=== PATIENT | female | born 1945 | race Caucasian/White ===

== ENCOUNTER 2017-04-19 14:36 | Emergency (ER) | payer BC, MEDICARE ==
[~2017-04-19] VITALS: Ht 154.9 cm; Wt 60.3 kg
[~2017-04-19 14:36] MED LIST: ALPR1TAB2 PO; ASPI325T8 PO; HYDR-2766 PO; LISI10TA2 PO; METO25TA2 PO
[2017-04-19 14:41] VITALS: BP 164/77
[2017-04-19] MEDS ORDERED: ASPI-630 PO (14:58)
[2017-04-19] MEDS ORDERED: IV NORMAL SALINE 1000ML BAG 1,000 ML IV SCH (15:00)
[2017-04-19] MEDS ORDERED: HYDROmorphone 2 MG/ML VIAL IV/SQ PRN (15:00)
[2017-04-19] MEDS ORDERED: ONDANSETRON PF 4 MG/2 ML VIAL. IV ONE (15:00)
[2017-04-19] MEDS ORDERED: 0.9 % SODIUM CHLORIDE 10 ML DISP.SYRIN. IV PRN (15:00)
[2017-04-19 15:05] LABS: BASO # 0.1 x10^3/uL (0.0-0.2); BASO % 1 % (0-3); EOS % 4 % (0-3); HEMATOCRIT 46.1 % (36.0-47.0); HEMOGLOBIN 15.8 g/dL (12.0-15.5); LYMPH # 2.8 x10^3/uL (1.0-4.8); LYMPH % 45 % (24-48); MEAN CORPUSCULAR HEMOGLOBIN 34 pg (25-35); MEAN CORPUSCULAR HGB CONC 34 g/dL (31-37); MEAN CORPUSCULAR VOLUME 98 fL (79-100); MONO % 6 % (0-9); NEUT % 45 % (31-73); PLATELET COUNT 160 x10^3/uL (140-400); RED BLOOD COUNT 4.73 x10^6/uL (3.50-5.40); RED CELL DISTRIBUTION WIDTH 12.8 % (11.5-14.5); WHITE BLOOD COUNT 6.2 x10^3/uL (4.0-11.0)
[2017-04-19 15:12] LABS: POTASSIUM 3.9 mmol/L (3.5-5.1)
[2017-04-19 15:18] LABS: DIRECT BILIRUBIN 0.1 mg/dL (0.0-0.2); TOTAL BILIRUBIN 0.5 mg/dL (0.2-1.0); TOTAL PROTEIN 7.3 g/dL (6.4-8.2)
--- NOTE | 2017-04-19 15:18 | PHYS DOC ---
Past Medical History Past Medical History: Anxiety, CAD, Hypertension, LA Additional Past Medical Histor: HERNIATED DISC, ANEURYSM Past Surgical History: Appendectomy, Cholecystectomy, Coronary Bypass Surgery Smoking: Cigarettes, Greater than 1 pack/day Alcohol Use: None Drug Use: None Adult General Chief Complaint Chief Complaint: ABDOMINAL PAIN HPI HPI As patient is a pleasant 71-year-old female with a known history of LA, coronary artery disease requiring bypass CABG and catheterization, a known history of abdominal aneurysm, hypertension, and prior skin cancer who presents with abdominal pain that has been chronic for months progressively increased over the last several days. Although she has an abdominal aneurysm she is presently on a course of observation based on its size by her vascular surgeon. Patient says pain is gotten progressively worse and although she normally gets her care [facility] she has not liked their care and came here instead for an evaluation. Patient denies any vomiting or diarrhea but has had significant increasing nausea last several days. Patient says pain is worse with direct pressure when she lays on her abdomen not changed by activity or food. Patient denies any diarrhea or fevers, chills, URI symptoms. She further denies any syncope or abdominal distention. She denies any recent travel outside the country, recent trauma to her abdominal wall, headache or focal neurologic deficit. Patient is made very clear she did have a followed briefly with [facility] on Thursday of this prior week, she did not go because she did not like the way she was cared for. Differential diagnosis considered during this presentation Acute pancreatitis. Appendicitis. Acute hepatitis. Peptic ulcer disease. Nonulcer dyspepsia. Irritable bowel disease. Functional gallbladder disorder. Sphincter of Oddi dysfunction. Diseases of the right kidney. Right-sided pneumonia. Rhua-Cxcv-Nrlfxg syndrome Subhepatic or intraabdominal abscess. Perforated viscus. Cardiac ischemia. Black spider envenomation abdominal aneurysm, UTI, pyonephritis, kidney stone, Review of Systems Review of Systems Constitutional: Denies fever or chills [] Eyes: Denies change in visual acuity, redness, or eye pain [] HENT: Denies nasal congestion or sore throat [] Respiratory: Denies cough or shortness of breath [] Cardiovascular: No additional information not addressed in HPI [] GI: She is complaining of abdominal pain with nausea no vomiting of bloody stools or diarrhea patient. His abdominal pain is been going on for months and only slightly increased : Denies dysuria or hematuria [] Musculoskeletal: Denies back pain or joint pain [] Integument: Denies rash or she does have a skin lesion on her abdomen that is reminiscent of her prior skin cancer or any known by her and her hem inspector. Neurologic: Denies headache, focal weakness or sensory changes [] Endocrine: Denies polyuria or polydipsia [] All other systems were reviewed and found to be within normal limits, except as documented in this note. Current Medications Current Medications Current Medications Medications (Trade) Dose Ordered Sig/Amari Start Time Stop Time Status Last Admin Dose Admin Hydromorphone HCl (Dilaudid) 1 mg PRN Q15MIN PRN 04/19/17 15:00 04/20/17 14:59 04/19/17 15:28 1 MG Ondansetron HCl (Zofran) 4 mg 1X ONCE 04/19/17 15:00 04/19/17 15:01 DC 04/19/17 15:25 4 MG Sodium Chloride (Normal Saline Flush) 10 ml QSHIFT PRN 04/19/17 15:00 Allergies Allergies Allergies Coded Allergies Type Severity Reaction Last Updated Verified Iodinated Contrast- Oral and IV Dye Allergy Unknown 04/19/17 Yes Latex, Natural Rubber Allergy Unknown Itching 04/19/17 Yes hydromorphone Adverse Reaction Unknown 04/19/17 Yes morphine Adverse Reaction Unknown Nausea and Vomiting 04/19/17 Yes Physical Exam Physical Exam Signs recorded on chart demonstrate hypertension only. Which is chronic for patient Constitutional: Well developed, well nourished, no acute distress, non-toxic appearance. sHe is thin but nondiaphoretic she is interactive and appropriate speaking 18-20 words sentences without issue. No apparent shortness of breath HENT: Normocephalic, atraumatic, bilateral external ears normal, oropharynx moist, no oral exudates, nose normal. [] Eyes: PERRLA, EOMI, conjunctiva normal, no discharge. [] Neck: Normal range of motion, no tenderness, supple, no stridor. [] Cardiovascular:Heart rate regular rhythm, no murmur [] Lungs & Thorax: Bilateral breath sounds clear to auscultation [] Abdomen: Bowel sounds normal, soft, she has mild tenderness to palpation in the epigastric and mid abdominal region with no obvious pulsatile masses no guarding rebound or organomegaly. She has no Encinas Lama sign, no Goodwin's or McBurney's point tenderness to palpation.[] Skin: Warm, dry, no erythema, no rash. [] Back: No tenderness, no CVA tenderness. [] Extremities: No tenderness, no cyanosis, no clubbing, ROM intact, no edema. [] Neurologic: Alert and oriented X 3, normal motor function, normal sensory function, no focal deficits noted. [] Psychologic: Affect normal, judgement normal, mood normal. [] Current Patient Data Vital Signs Vital Signs Date Time Temp Pulse Resp B/P (MAP) Pulse Ox O2 Delivery O2 Flow Rate FiO2 04/19/17 15:28 18 04/19/17 14:41 98.1 58 164/77 (106) 97 Room Air 98.1 Lab Values Laboratory Tests Test 04/19/17 14:45 White Blood Count 6.2 x10^3/uL (4.0-11.0) Red Blood Count 4.73 x10^6/uL (3.50-5.40) Hemoglobin 15.8 g/dL (12.0-15.5) H Hematocrit 46.1 % (36.0-47.0) Mean Corpuscular Volume 98 fL (79-100) Mean Corpuscular Hemoglobin 34 pg (25-35) Mean Corpuscular Hemoglobin Concent 34 g/dL (31-37) Red Cell Distribution Width 12.8 % (11.5-14.5) Platelet Count 160 x10^3/uL (140-400) Neutrophils (%) (Auto) 45 % (31-73) Lymphocytes (%) (Auto) 45 % (24-48) Monocytes (%) (Auto) 6 % (0-9) Eosinophils (%) (Auto) 4 % (0-3) H Basophils (%) (Auto) 1 % (0-3) Neutrophils # (Auto) 2.8 x10^3uL (1.8-7.7) Lymphocytes # (Auto) 2.8 x10^3/uL (1.0-4.8) Monocytes # (Auto) 0.4 x10^3/uL (0.0-1.1) Eosinophils # (Auto) 0.2 x10^3/uL (0.0-0.7) Basophils # (Auto) 0.1 x10^3/uL (0.0-0.2) Sodium Level 140 mmol/L (136-145) Potassium Level 3.9 mmol/L (3.5-5.1) Chloride Level 103 mmol/L (98-107) Carbon Dioxide Level 29 mmol/L (21-32) Anion Gap 8 (6-14) Blood Urea Nitrogen 8 mg/dL (7-20) Creatinine 1.0 mg/dL (0.6-1.0) Estimated GFR (Cockcroft-Gault) 55.0 Glucose Level 93 mg/dL (70-99) Calcium Level 9.0 mg/dL (8.5-10.1) Total Bilirubin 0.5 mg/dL (0.2-1.0) Direct Bilirubin 0.1 mg/dL (0.0-0.2) Aspartate Amino Transferase (AST) 17 U/L (15-37) Alanine Aminotransferase (ALT) 14 U/L (14-59) Alkaline Phosphatase 102 U/L (46-116) Creatine Kinase 37 U/L (26-192) Creatine Kinase MB (Mass) < 0.5 ng/mL (0.0-3.6) Creatine Kinase MB Relative Index % (0-4) Troponin I Quantitative < 0.017 ng/mL (0.000-0.055) Total Protein 7.3 g/dL (6.4-8.2) Albumin 4.0 g/dL (3.4-5.0) Lipase 61 U/L (73-393) L Laboratory Tests 04/19/17 14:45 Laboratory Tests 04/19/17 14:45 EKG EKG [] Radiology/Procedures Radiology/Procedures [] [facility] [address] [place] [address] IMAGING REPORT Signed PATIENT: TOÑO ROLLINS ACCOUNT: [id number] : 1945 LOCATION: ER AGE: 71 SEX: F EXAM STATUS: PRE ER ORD. PHYSICIAN: EULA MARINELLI MD REASON: ab pain with known AAA PROCEDURE: CT ABDOMEN PELVIS WO CONTRAST EXAM: CT abdomen and pelvis without contrast. HISTORY: 71-year-old female with abdominal pain, known abdominal aortic aneurysm. TECHNIQUE: Computed tomographic images of the abdomen and pelvis are obtained without the use of intravenous contrast, given reported iodine allergy. Multiplanar reformatting was performed. One or more of the following individualized dose reduction techniques were utilized for this examination: 1. Automated exposure control 2. Adjustment of the mA and/or kV according to patient size 3. Use of iterative reconstruction technique COMPARISON: Contrast-enhanced CT dated April 20, 2016. FINDINGS: Visualized lung bases demonstrate no acute finding. Detailed evaluation of intra-abdominal and pelvic organs and vascular structures is limited given lack of IV and oral contrast. Within this limitation, the liver, spleen, pancreas, and adrenal glands demonstrate no focal abnormality. Gallbladder is surgically absent. No hydronephrosis or nephrolithiasis is seen. A round hypodensity is redemonstrated extending off the superior left kidney, similar in size when compared to the previous exam. The GI tract demonstrates no dilated bowel loops to suggest obstruction. Distal colonic diverticula are present without evidence of acute inflammation. The appendix is not visualized in the right lower quadrant, however no inflammatory changes are seen in the region to suggest acute appendicitis. Urinary bladder is distended with urine and grossly unremarkable, aside from a single tiny focus of air anteriorly within its lumen, could be related to recent catheterization or infection. Uterus and bilateral adnexa demonstrate no focal abnormality. There is redemonstration of focal dilatation of the infrarenal abdominal aorta measuring up to 4.5 cm in AP dimension, previously measuring 4.2 when measured in a similar fashion on last years exam. No periaortic stranding is seen. Diffuse atherosclerotic calcifications of the aorta and its branches are redemonstrated. No intra-abdominal or pelvic free fluid, free air or significant lymphadenopathy is seen. Overlying soft tissues and visualized osseous structures demonstrate no acute or suspicious interval change. Median sternotomy wires are partially visualized. IMPRESSION: No acute intra-abdominal or pelvic process seen on this noncontrast study. No acute interval change when compared to the previous exam, with grossly stable appearing infrarenal abdominal aortic aneurysm. IMAGING REPORT Signed PATIENT: TOÑO ROLLINS ACCOUNT: [id number] : 1945 LOCATION: ER AGE: 71 SEX: F EXAM STATUS: PRE ER ORD. PHYSICIAN: EULA MARINELLI MD REASON: AAA with ab and back pain PROCEDURE: ABDOMEN COMPLETE ABDOMEN COMPLETE Clinical Indication: AAA with ab and back pain Comparison: None, correlate with CT obtained on the same day. Technique: Transverse and longitudinal sonography of the abdomen is performed. Findings: The pancreas is obscured by overlying bowel gas. IVC is patent. Proximal aorta measures 2.1 cm in diameter. Mid aorta measured at 4.3 cm in greatest diameter, consistent with known abdominal aortic aneurysm. The liver demonstrates normal contour and echogenicity measuring 15.0 cm. The main portal vein demonstrates normal directional flow. The common bile duct measures 6 mm in diameter. The gallbladder is surgically absent. The right kidney measures 9.6 x 4.9 x 5.0 cm, without evidence of hydronephrosis. Left kidney measures 10.5 x 5.9 x 5.1 cm, without evidence of hydronephrosis. A round, simple appearing cyst is seen extending off the superior left kidney measuring 3.1 cm, consistent with a simple appearing cyst. The spleen measures 11.5 cm. No free fluid is seen within the provided images. IMPRESSION: 1. No acute sonographic finding. Gallbladder surgically absent. 2. Abdominal aortic aneurysm redemonstrated. 3. Simple appearing left renal cyst. DICTATED and SIGNED BY: CARLY SINGH MD DATE: 04/19/17 1541 CC: EULA MARINELLI MD; CONRAD HOLLOWAY MD ~ DICTATED and SIGNED BY: CARLY SINGH MD DATE: 04/19/17 1533 CC: EULA MARINELLI MD; CONRAD HOLLOWAY MD ~ Course & Med Decision Making Course & Med Decision Making Pertinent Labs and Imaging studies reviewed. (See chart for details) []While trying to place the IV line patient became increasingly aggressive with staff and actually threatened to leave AMA if they did not sticker by the second time. was also somewhat aggressive with staff and actually left the room extremity he didn't want see his "" tortured by the place an IV line in her arm. Reassured them that we are intent was to be as kindest possible in order to have a safety that in place patient was placed on a monitor and an IV placed on the right antecubital fossa. Patient EKG that was done on arrival time of 2:49 PM read by me 04/19/2017 demonstrates normal sinus rhythm with a P wave there were QRS there is a heart rate of 52 sinus bradycardia with purulent 156, QRS interval of 88 which is normal, QTC of 48 which is normal. Patient has some nonspecific ST segment T- wave changes in the lateral leads which may represent ventricular strain there is also a great deal of movement artifact associated with this EKG. Is now 3:[address] the way back from CAT scanner began having increasing chest discomfort another EKG was ordered to look for any kind of change or ischemic pattern on EKG. Patient is resting quietly with no complaints. Patient tells me that their symptoms given during CC are improved. We reviewed labs and radiology reports with patient and any family at bedside. We have discussed the CT results which stems see no interval change in her CAT scan. Patient has a negative troponin, negative proBNP, negative EKG, negative LFTs, negative CBC, patient's urinalysis is clear. Patient's discomfort is improved specifically patient is no change from change in her abdominal aneurysm. Dragon Disclaimer Dragon Disclaimer This electronic medical record was generated, in whole or in part, using a voice recognition dictation system. Departure Departure Impression: Primary Impression: AAA (abdominal aortic aneurysm) without rupture Additional Impression: Abdominal pain Disposition: 01 HOME, SELF-CARE Referrals: CONRAD HOLLOWAY MD (PCP) Patient Instructions: Abdominal Aortic Aneurysm, Abdominal Pain (Nonspecific) Additional Instructions: discharge: I've spoken with the patient and/or caregivers. I've explained the patient's condition, diagnosis and treatment plan based on information available to me at this time. I've answered the patient's and/or caregivers questions and addressed any concerns. The patient and/or caregivers have a good understanding the patient's diagnosis, condition and treatment plan as can be expected at this point. Vital signs have been stabilized. The patient's condition is stable for discharge from the emergency department. The patient will pursue further outpatient evaluation with her primary care provider or other designated consulting physician as outlined in the discharge instructions. Patient and/or caregivers are agreeable to this plan of care and follow-up instructions have been explained in detail. The patient and/or caregivers have received these instructions in written format and expressed understanding of these discharge instructions. The patient and her caregivers are aware that if any significant change in condition or worsening of symptoms should prompt him to immediately return to this of the closest emergency department. If an emergent department is not readily available I would encourage him to call 911. Scripts Hydrocodone Bit/Acetaminophen (HYDROCODONE-APAP 5-325 ) 1 Each Tablet 1-2 TAB PO PRN Q6HRS Y for PAIN for 5 Days, #14 TAB 0 Refills Prov: EULA MARINELLI MD 04/19/17 Problem Qualifiers EULA MARINELLI MD Apr 19, 2017 15:18
[2017-04-19 15:29] LABS: CREATINE KINASE 37 U/L (26-192)
[2017-04-19 15:30] LABS: CKMB MASS < 0.5 ng/mL (0.0-3.6)
--- NOTE | 2017-04-19 15:45 | RAD ---
EXAM: CT abdomen and pelvis without contrast. HISTORY: 71-year-old female with abdominal pain, known abdominal aortic aneurysm. TECHNIQUE: Computed tomographic images of the abdomen and pelvis are obtained without the use of intravenous contrast, given reported iodine allergy. Multiplanar reformatting was performed. One or more of the following individualized dose reduction techniques were utilized for this examination: 1. Automated exposure control 2. Adjustment of the mA and/or kV according to patient size 3. Use of iterative reconstruction technique COMPARISON: Contrast-enhanced CT dated April 20, 2016. FINDINGS: Visualized lung bases demonstrate no acute finding. Detailed evaluation of intra-abdominal and pelvic organs and vascular structures is limited given lack of IV and oral contrast. Within this limitation, the liver, spleen, pancreas, and adrenal glands demonstrate no focal abnormality. Gallbladder is surgically absent. No hydronephrosis or nephrolithiasis is seen. A round hypodensity is redemonstrated extending off the superior left kidney, similar in size when compared to the previous exam. The GI tract demonstrates no dilated bowel loops to suggest obstruction. Distal colonic diverticula are present without evidence of acute inflammation. The appendix is not visualized in the right lower quadrant, however no inflammatory changes are seen in the region to suggest acute appendicitis. Urinary bladder is distended with urine and grossly unremarkable, aside from a single tiny focus of air anteriorly within its lumen, could be related to recent catheterization or infection. Uterus and bilateral adnexa demonstrate no focal abnormality. There is redemonstration of focal dilatation of the infrarenal abdominal aorta measuring up to 4.5 cm in AP dimension, previously measuring 4.2 when measured in a similar fashion on last years exam. No periaortic stranding is seen. Diffuse atherosclerotic calcifications of the aorta and its branches are redemonstrated. No intra-abdominal or pelvic free fluid, free air or significant lymphadenopathy is seen. Overlying soft tissues and visualized osseous structures demonstrate no acute or suspicious interval change. Median sternotomy wires are partially visualized. IMPRESSION: No acute intra-abdominal or pelvic process seen on this noncontrast study. No acute interval change when compared to the previous exam, with grossly stable appearing infrarenal abdominal aortic aneurysm.
--- NOTE | 2017-04-19 15:48 | RAD ---
ABDOMEN COMPLETE Clinical Indication: AAA with ab and back pain Comparison: None, correlate with CT obtained on the same day. Technique: Transverse and longitudinal sonography of the abdomen is performed. Findings: The pancreas is obscured by overlying bowel gas. IVC is patent. Proximal aorta measures 2.1 cm in diameter. Mid aorta measured at 4.3 cm in greatest diameter, consistent with known abdominal aortic aneurysm. The liver demonstrates normal contour and echogenicity measuring 15.0 cm. The main portal vein demonstrates normal directional flow. The common bile duct measures 6 mm in diameter. The gallbladder is surgically absent. The right kidney measures 9.6 x 4.9 x 5.0 cm, without evidence of hydronephrosis. Left kidney measures 10.5 x 5.9 x 5.1 cm, without evidence of hydronephrosis. A round, simple appearing cyst is seen extending off the superior left kidney measuring 3.1 cm, consistent with a simple appearing cyst. The spleen measures 11.5 cm. No free fluid is seen within the provided images. IMPRESSION: 1. No acute sonographic finding. Gallbladder surgically absent. 2. Abdominal aortic aneurysm redemonstrated. 3. Simple appearing left renal cyst.
[2017-04-19 16:06] LABS: BILIRUBIN,URINE NEGATIVE (NEG); GLUCOSE,URINE NEGATIVE (NEG); NITRITE,URINE NEGATIVE (NEG); PH,URINE 6.5; PROTEIN,URINE NEGATIVE (NEG-TRACE); UROBILINOGEN,URINE 0.2 mg/dL (0.2 mg/dL)
[2017-04-19] MEDS ORDERED: HYDR-2758 PO (16:17)
[2017-04-19 16:18] LABS: BACTERIA,URINE 0 /HPF (0-FEW); RBC,URINE RARE /HPF (0-2); SQUAMOUS EPITHELIAL CELL,UR OCC /LPF
--- NOTE | 2017-04-20 06:27 | EKG ---
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
== END 2017-04-19 16:43 | disposition home or self-care (01) ==
LOC: ER 14:36
DX: I71.4 Abdominal aortic aneurysm, without rupture (principal); I25.10 Atherosclerotic heart disease of native coronary artery without angina pectoris; F41.9 Anxiety disorder, unspecified; I10 Essential (primary) hypertension; I25.2 Old myocardial infarction; F17.210 Nicotine dependence, cigarettes, uncomplicated; Z90.49 Acquired absence of other specified parts of digestive tract; Z95.1 Presence of aortocoronary bypass graft; Z91.041 Radiographic dye allergy status; Z91.040 Latex allergy status; Z88.5 Allergy status to narcotic agent
CPT/HCPCS: 36415; 74176; 76700; 80048; 80076; 81001; 82553; 83690; 84484; 85025; 87086; 93005; 96361; 96374; 96375; 99285; J1170; J2405; J7030

== ENCOUNTER 2017-07-06 20:27 | Emergency (ER) | payer BC ==
[2017-07-06] MEDS: DOXYCYCLINE HYCLATE 100 MG TABLET PO ×2 (21:27)
== END 2017-07-06 21:44 | disposition home or self-care (01) ==
LOC: ER 20:27
DX: L03.031 Cellulitis of right toe (principal); I10 Essential (primary) hypertension; I25.10 Atherosclerotic heart disease of native coronary artery without angina pectoris; I25.2 Old myocardial infarction; Z88.5 Allergy status to narcotic agent; Z91.041 Radiographic dye allergy status; Z91.040 Latex allergy status
CPT/HCPCS: 99283

== ENCOUNTER 2018-03-12 06:55 | Inpatient (IN) | payer BC ==
[~2018-03-12] VITALS: Ht 165.1 cm; Wt 56.2 kg
[~2018-03-12 06:55] MED LIST changes: +ASPI-630 PO; +DOXY100C2 PO; +HYDR-2758 PO
--- NOTE | 2018-03-12 07:10 | EKG ---
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
--- NOTE | 2018-03-12 07:20 | PHYS DOC ---
Past Medical History Past Medical History: Anxiety, CAD, Hypertension, SC Additional Past Medical Histor: HERNIATED DISC, ANEURYSM Past Surgical History: Appendectomy, Cholecystectomy, Coronary Bypass Surgery Alcohol Use: None Drug Use: None Adult General Chief Complaint Chief Complaint: CHEST PAIN HPI HPI 72-year-old female presenting the emergency department today with chest pain this started this morning about 2 hours ago. She called EMS who provided the patient with aspirin and nitroglycerin. She is currently feeling much better. She has a history of multiple heart attacks in the past and is status post CABG. She denies any history of blood clots coughing of blood or unilateral leg swelling. The pain was a pressure sensation that she reports is worse than her previous heart attacks. Her pain is nearly 0 now. Review of systems is negative for abdominal pain vomiting fevers chills diaphoresis. All other review of systems is negative unless otherwise noted in history of present illness. ED course: 72-year-old female presenting with chest pain. On arrival EKG obtained which shows that the patient has ST depressions in lead V2 V3 V4 V5 V6. less than 1mm ST elevation in AVR. Does not meet STEMI criteria. IV established. cards paged at [phone]. samia called back at [phone]. I communicated findings on EKG. He asked that I initiated heparin. They will see her first thing. The time is now 7:46 AM. After reviewing the patient's medical chart it appears that she has a history of abdominal aortic aneurysm. Heparin has not been given because the patient's symptoms were not clearly only in her chest but she describes them as "all over." Risk-benefit analysis and discussion had with patient. Shared decision making utilized. We will evaluate the patient's aneurysms further prior to initiating heparin as it would be strongly contraindicated if her aneurysms are contributing to her symptoms. Dr. Jha did not know about her aneurysms during her discussion by phone. I came to the knowledge of the aneurysms after my discussion with him. The time is now 10:[address] angiogram confirms no acute rupture of AAA. No signs of dissection. We will initiate heparin therapy. I spoke with Dr. Yancey our vascular surgeon as the patient's aneurysm is over 5 cm. He agrees to see the patient. We will admit the patient to the PCP service to the cardiovascular care unit for further evaluation treatment and care. I placed a basic bridge orders. Dr. Holloway accepted the patient for admission. Review of Systems Review of Systems SEE ABOVE. Current Medications Current Medications Current Medications Medications (Trade) Dose Ordered Sig/Amari Start Time Stop Time Status Last Admin Dose Admin Acetaminophen (Tylenol) 650 mg 1X ONCE 03/12/18 08:00 03/12/18 08:01 DC Alprazolam (Xanax) 0.25 mg 1X ONCE 03/12/18 08:00 03/12/18 08:01 DC 03/12/18 08:03 0.25 MG Fentanyl Citrate (Fentanyl 2ml Vial) 25 mcg 1X PRN PRN 03/12/18 08:00 03/12/18 08:03 25 MCG Heparin Sodium (Porcine) (Heparin Sodium) 3,350 unit 1X ONCE 03/12/18 10:15 03/12/18 10:16 UNV Heparin Sodium/ Dextrose 500 ml @ 0 mls/hr CONT PRN 03/12/18 10:15 UNV Info (CONTRAST GIVEN -- Rx MONITORING) 1 each PRN DAILY PRN 03/12/18 08:15 03/14/18 08:14 Iohexol (Omnipaque 300 Mg/ml) 90 ml 1X ONCE 03/12/18 08:15 03/12/18 08:16 DC 03/12/18 08:15 90 ML Nitroglycerin (Nitrostat) 0.4 mg PRN Q5MIN PRN 03/12/18 10:15 03/13/18 10:14 UNV Ondansetron HCl (Zofran) 4 mg PRN Q8HRS PRN 03/12/18 10:15 03/13/18 10:14 UNV Sodium Chloride 1,000 ml @ 100 mls/hr Q10H 03/12/18 10:13 03/12/18 14:12 UNV Allergies Allergies Allergies Coded Allergies Type Severity Reaction Last Updated Verified Latex, Natural Rubber Allergy Intermediate Itching 07/06/17 Yes hydromorphone Adverse Reaction Intermediate 03/12/18 Yes morphine Adverse Reaction Intermediate Nausea and Vomiting 03/12/18 Yes Physical Exam Physical Exam SEE ABOVE Constitutional: Well developed, well nourished, no acute distress, non-toxic appearance. feeling much better. HENT: Normocephalic, atraumatic, bilateral external ears normal, oropharynx moist, no oral exudates, nose normal. [] Eyes: PERRLA, EOMI, conjunctiva normal, no discharge. [] Neck: Normal range of motion, no tenderness, supple, no stridor. [] Cardiovascular:Heart rate regular rhythm, no murmur [] Lungs & Thorax: Bilateral breath sounds clear to auscultation [] Abdomen: Bowel sounds normal, soft, no tenderness, no masses, no pulsatile masses. [] Skin: Warm, dry, no erythema, no rash. [] Back: No tenderness, no CVA tenderness. [] Extremities: No tenderness, no cyanosis, no clubbing, ROM intact, no edema. [] Neurologic: Alert and oriented X 3, normal motor function, normal sensory function, no focal deficits noted. [] Psychologic: Affect normal, judgement normal, mood normal. [] Current Patient Data Vital Signs Vital Signs Date Time Temp Pulse Resp B/P (MAP) Pulse Ox O2 Delivery O2 Flow Rate FiO2 03/12/18 09:00 101 18 141/83 (102) 97 Room Air Lab Values Laboratory Tests Test 03/12/18 07:15 White Blood Count 8.0 x10^3/uL (4.0-11.0) Red Blood Count 4.29 x10^6/uL (3.50-5.40) Hemoglobin 14.3 g/dL (12.0-15.5) Hematocrit 41.1 % (36.0-47.0) Mean Corpuscular Volume 96 fL (79-100) Mean Corpuscular Hemoglobin 33 pg (25-35) Mean Corpuscular Hemoglobin Concent 35 g/dL (31-37) Red Cell Distribution Width 13.1 % (11.5-14.5) Platelet Count 168 x10^3/uL (140-400) Neutrophils (%) (Auto) 79 % (31-73) H Lymphocytes (%) (Auto) 14 % (24-48) L Monocytes (%) (Auto) 5 % (0-9) Eosinophils (%) (Auto) 1 % (0-3) Basophils (%) (Auto) 1 % (0-3) Neutrophils # (Auto) 6.3 x10^3uL (1.8-7.7) Lymphocytes # (Auto) 1.1 x10^3/uL (1.0-4.8) Monocytes # (Auto) 0.4 x10^3/uL (0.0-1.1) Eosinophils # (Auto) 0.1 x10^3/uL (0.0-0.7) Basophils # (Auto) 0.0 x10^3/uL (0.0-0.2) Prothrombin Time 13.7 SEC (11.7-14.0) Prothrombin Time INR 1.1 (0.8-1.1) PTT 26 SEC (24-38) Sodium Level 145 mmol/L (136-145) Potassium Level 3.0 mmol/L (3.5-5.1) L Chloride Level 107 mmol/L (98-107) Carbon Dioxide Level 30 mmol/L (21-32) Anion Gap 8 (6-14) Blood Urea Nitrogen 15 mg/dL (7-20) Creatinine 0.9 mg/dL (0.6-1.0) Estimated GFR (Cockcroft-Gault) 61.9 Glucose Level 121 mg/dL (70-99) H Calcium Level 9.0 mg/dL (8.5-10.1) Total Bilirubin 0.5 mg/dL (0.2-1.0) Direct Bilirubin 0.2 mg/dL (0.0-0.2) Aspartate Amino Transferase (AST) 12 U/L (15-37) L Alanine Aminotransferase (ALT) 15 U/L (14-59) Alkaline Phosphatase 87 U/L (46-116) Troponin I Quantitative < 0.017 ng/mL (0.000-0.055) OZ-Erg-N-Type Natriuretic Peptide 1562 pg/mL (0-124) H Total Protein 6.6 g/dL (6.4-8.2) Albumin 3.7 g/dL (3.4-5.0) Lipase 92 U/L (73-393) Laboratory Tests 03/12/18 07:15 Laboratory Tests 03/12/18 07:15 EKG EKG [] Radiology/Procedures Radiology/Procedures [] Course & Med Decision Making Course & Med Decision Making Pertinent Labs and Imaging studies reviewed. (See chart for details) [] Dragon Disclaimer Dragon Disclaimer This electronic medical record was generated, in whole or in part, using a voice recognition dictation system. Departure Departure Impression: Primary Impression: Chest pain Disposition: ADMITTED INPATIENT Admitting Physician: Conrad Holloway Condition: STABLE Referrals: CONRAD HOLLOWAY MD (PCP) ADELAIDE DOMINGUEZ MD Mar 12, 2018 07:20
[2018-03-12] MEDS ORDERED: HEPARIN for IV BOLUS 10,000 UNIT/10 ML VIAL. IV ONE ×2 (07:30→10:15)
[2018-03-12] MEDS ORDERED: HEPARIN 25,000UTS/500ML PREMIX 500 ML IV PRN ×2 (07:30→10:15)
[2018-03-12 07:35] LABS: BASO % 1 % (0-3); EOS # 0.1 x10^3/uL (0.0-0.7); EOS % 1 % (0-3); HEMATOCRIT 41.1 % (36.0-47.0); HEMOGLOBIN 14.3 g/dL (12.0-15.5); LYMPH # 1.1 x10^3/uL (1.0-4.8); LYMPH % 14 % (24-48); MEAN CORPUSCULAR HEMOGLOBIN 33 pg (25-35); MEAN CORPUSCULAR HGB CONC 35 g/dL (31-37); MEAN CORPUSCULAR VOLUME 96 fL (79-100); MONO # 0.4 x10^3/uL (0.0-1.1); MONO % 5 % (0-9); NEUT # 6.3 x10^3uL (1.8-7.7); NEUT % 79 % (31-73); PLATELET COUNT 168 x10^3/uL (140-400); RED BLOOD COUNT 4.29 x10^6/uL (3.50-5.40); RED CELL DISTRIBUTION WIDTH 13.1 % (11.5-14.5)
--- NOTE | 2018-03-12 07:43 | RAD ---
Portable chest, 03/12/2018: HISTORY: Chest pain Comparison is made to a study from 09/11/2013. There has been a previous median sternotomy. The heart size and pulmonary vascularity are normal. There is calcific plaquing of the aorta. No pulmonary infiltrate is seen. There is no evidence of pleural fluid. IMPRESSION: No acute cardiopulmonary abnormality is detected. Electronically signed by: Heri Leonard MD (03/12/2018 7:40 AM) [facility]
[2018-03-12 07:45] LABS: CREATININE 0.9 mg/dL (0.6-1.0); GFR 61.9
[2018-03-12 07:49] LABS: ALBUMIN 3.7 g/dL (3.4-5.0); DIRECT BILIRUBIN 0.2 mg/dL (0.0-0.2); TOTAL BILIRUBIN 0.5 mg/dL (0.2-1.0); TOTAL PROTEIN 6.6 g/dL (6.4-8.2)
[2018-03-12 07:51] LABS: PROTHROMBIN TIME PATIENT 13.7 SEC (11.7-14.0)
[2018-03-12] MEDS ORDERED: ALPRAZolam 0.25 MG TABLET PO ONE (08:00)
[2018-03-12] MEDS ORDERED: fentaNYL PF VIAL 100 MCG/2 ML VIAL IV PRN (08:00)
[2018-03-12] MEDS ORDERED: ACETAMINOPHEN 325 MG TABLET. PO ONE (08:00)
[2018-03-12] MEDS ORDERED: CONTRAST GIVEN. MC PRN (08:15)
[2018-03-12] MEDS ORDERED: IOHEXOL 300 MG/ML 100ML VIAL. IV ONE (08:15)
[2018-03-12] MEDS ORDERED: NITROGLYCERIN SUBLINGUAL 0.4 MG BOTTLE OF 25. SL PRN ×2 (08:30→10:15)
--- NOTE | 2018-03-12 09:07 | EKG ---
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
--- NOTE | 2018-03-12 10:08 | RAD ---
PQRS Compliance Statement: One or more of the following individualized dose reduction techniques were utilized for this examination: 1. Automated exposure control 2. Adjustment of the mA and/or kV according to patient size 3. Use of iterative reconstruction technique CT ANGIO CHEST ABD PELVIS Clinical Indication: chest pain [id number], hx of aneurysm Comparison: CT abdomen and pelvis without contrast, April 19, 2017. CT angiogram chest abdomen and pelvis with contrast, September 15, 2012. TECHNIQUE: Helical CT imaging of the chest abdomen and pelvis is performed after 90 cc of Omnipaque [address] angiogram protocol. 3-D MIP and volume rendering reconstructions of the aorta performed. Findings: Mild narrowing in the proximal subclavian arteries bilaterally. Atherosclerotic aortic arch. There is borderline aneurysm of the ascending thoracic aorta, diameter 4.3 cm. Finding is unchanged. There is no dissection. Atherosclerotic calcification and mural thrombus in the descending thoracic aorta. Coronary artery disease. Prior CABG. 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 The narrowing is worse. Atherosclerotic calcification and moderate narrowing at the origin of the SMA. Right and left renal arteries are patent. There is bilobed fusiform aneurysm of the infrarenal abdominal aorta, moderate mural thrombus in the lumen. Largest diameter is in the upper portion of the aneurysm measuring 5.1 cm AP by 4.4 cm transverse. On the 2017 study the maximum dimensions measured in similar location are 4.6 x 4.2 cm. There is moderate to severe narrowing at the origin of the right common iliac artery, progressed from prior study. Otherwise no high-grade narrowing in the common and external iliac arteries or the visualized femoral arteries. 9 mm right paratracheal lymph node. Cardiac size normal, no pericardial effusion. There is no pleural effusion. Tiny opacity in the anterior trachea is nonspecific but may be retained secretions or mucous, image 26. Lungs essentially clear. Cholecystectomy. Probable mild fatty infiltration of the liver. Spleen size normal. Small left adrenal nodules are stable. Pancreas and right adrenal gland are normal. Tiny cortical cyst right kidney. 3.3 cm left upper pole cyst. No hydronephrosis. Stomach unremarkable. No dilated small bowel. Sigmoid colon diverticulosis. No colon wall thickening. The urinary bladder is normal. Atrophic uterus. No pelvic free fluid. No compression fracture in the thoracolumbar spine. IMPRESSION: 1. Borderline aneurysm of the ascending thoracic aorta is unchanged. No dissection. 2. Infrarenal abdominal aorta aneurysm has mildly increased compared to 2017. Maximum diameter 5.1 cm. 3. 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 Moderate narrowing at the origin of the SMA. Celiac artery narrowing has progressed from 2013. 4. Moderate to severe narrowing at the origin of the right common iliac artery, progressed from 2013. 5. No acute abnormality in the chest abdomen or pelvis. Incidental findings as above. Electronically signed by: Nilesh Torres MD (03/12/2018 10:05 AM) [id number]
[2018-03-12] MEDS ORDERED: IV NORMAL SALINE 1000ML BAG 1,000 ML IV SCH (10:13)
[2018-03-12] MEDS ORDERED: ONDANSETRON PF 4 MG/2 ML VIAL. IV PRN (10:15)
--- NOTE | 2018-03-12 12:09 | PDOC2 ---
CARDIAC CONSULT DATE OF CONSULT Date of Consult DATE: 03/12/18 TIME: 12:02 REASON FOR CONSULT Reason for Consult: chest pain REFERRING PHYSICIAN Referring Physician: Carol SOURCE Source: Chart review, Patient HISTORY OF PRESENT ILLNESS HISTORY OF PRESENT ILLNESS This is a 72 yo female admitted for complains of chest pain. Reports that she has been having exertional CP and SOA in the last few weeks. Last night her chest pain was increased describing it as sharp which radiated to her neck and arms. She also is having throbbing bilateral MENA and is a little nauseated. Denies any palpitations. She is still having CP. She is significant for CAD with past CABG with 8 stents placed prior to that. She has been complaint with her cardiac meds but has been resistant to statin as she is scared about the side effects. Reports that she has not followed up with any program project manager since having CABG in 2007 and has not had any stress test done. Reports that she has been stressed lately and has increased her tobacco use. She is frustrated currently as she is been in ED for a while irritated and telling that if she does not get any room upstairs that she is just going to walk out of here and does not care if she dies. I was able to finally calm her down noting that her main problem is her MENA and has not been taken care off. Her BP is adequate and has received BTG and takes lortab for pain at home. PAST MEDICAL HISTORY Cardiovascular: CAD, HTN, Hyperlipidemia (refuses statin) Pulmonary: No pertinent hx CENTRAL NERVOUS SYSTEM: Other (No pertinent history) GI: GERD Heme/Onc: Cancer (skin) Hepatobiliary: No pertinent hx Psych: Anxiety Musculoskeletal: Osteoarthritis Rheumatologic: No pertinent hx Infectious disease: No pertinent hx ENT: No pertinent hx Renal/: No pertinent hx Endocrine: No pertinent hx Dermatology: Other (skin CA) PAST SURGICAL HISTORY Past Surgical History: Cholecystectomy, CABG (x3 10 yrs ago with 8 stents prior to it) FAMILY HISTORY Family History: Coronary Artery Disease (father and mother) SOCIAL HISTORY Smoke: 1 pack per day (>50 yrs) ALCOHOL: none Drugs: None Lives: with Family CURRENT MEDICATIONS CURRENT MEDICATIONS Current Medications Medications (Trade) Dose Ordered Sig/Amari Route PRN Reason Start Time Stop Time Status Last Admin Dose Admin Alprazolam (Xanax) 0.25 mg 1X ONCE PO 03/12/18 08:00 03/12/18 08:01 DC 03/12/18 08:03 Fentanyl Citrate (Fentanyl 2ml Vial) 25 mcg 1X PRN PRN IV SEVERE PAIN 03/12/18 08:00 03/12/18 08:03 Iohexol (Omnipaque 300 Mg/ml) 90 ml 1X ONCE IV 03/12/18 08:15 03/12/18 08:16 DC 03/12/18 08:15 Nitroglycerin (Nitrostat) 0.4 mg PRN Q5MIN PRN SL CHEST PAIN 03/12/18 08:30 03/12/18 10:45 DC 03/12/18 08:45 Heparin Sodium (Porcine) (Heparin Sodium) 3,350 unit 1X ONCE IV 03/12/18 10:15 03/12/18 10:45 DC 03/12/18 11:10 Heparin Sodium/ Dextrose 500 ml @ 13.5 mls/hr CONT PRN IV SEE I/O RECORD 03/12/18 10:15 03/12/18 11:12 ALLERGIES ALLERGIES: Coded Allergies: Latex, Natural Rubber (Verified Allergy, Intermediate, Itching, 07/06/17) hydromorphone (Verified Adverse Reaction, Intermediate, 03/12/18) PT REPORTS THAT SHE DOES NOT LIKE THE WAY SHE FEELS ON DILAUDID. NO SYMPTOMS morphine (Verified Adverse Reaction, Intermediate, Nausea and Vomiting, ) ROS Review of System 14 point ROS evaluated with pertinent positives noted per HPI PHYSICAL EXAM General: Alert, Oriented X3, No acute distress, Other (irritable) HEENT: Mucous membr. moist/pink Lungs: Clear to auscultation, Normal air movement Heart: Regular rate (SR), Other (3-4/6systolic murmur to LLS border and EUNICE border) Abdomen: Soft, No tenderness Extremities: No cyanosis, No edema Skin: No breakdown, No significant lesion Neuro: Normal speech, Sensation intact Psych/Mental Status: Mental status NL, Mood NL MUSCULOSKELETAL: Osteoarthritic changes both hands VITALS VITALS Vital Signs Date Time Temp Pulse Resp B/P (MAP) Pulse Ox O2 Delivery O2 Flow Rate FiO2 03/12/18 09:00 101 18 141/83 (102) 97 Room Air LABS Lab: Laboratory Tests Test 03/12/18 07:15 White Blood Count 8.0 x10^3/uL (4.0-11.0) Red Blood Count 4.29 x10^6/uL (3.50-5.40) Hemoglobin 14.3 g/dL (12.0-15.5) Hematocrit 41.1 % (36.0-47.0) Mean Corpuscular Volume 96 fL (79-100) Mean Corpuscular Hemoglobin 33 pg (25-35) Mean Corpuscular Hemoglobin Concent 35 g/dL (31-37) Red Cell Distribution Width 13.1 % (11.5-14.5) Platelet Count 168 x10^3/uL (140-400) Neutrophils (%) (Auto) 79 % (31-73) Lymphocytes (%) (Auto) 14 % (24-48) Monocytes (%) (Auto) 5 % (0-9) Eosinophils (%) (Auto) 1 % (0-3) Basophils (%) (Auto) 1 % (0-3) Neutrophils # (Auto) 6.3 x10^3uL (1.8-7.7) Lymphocytes # (Auto) 1.1 x10^3/uL (1.0-4.8) Monocytes # (Auto) 0.4 x10^3/uL (0.0-1.1) Eosinophils # (Auto) 0.1 x10^3/uL (0.0-0.7) Basophils # (Auto) 0.0 x10^3/uL (0.0-0.2) Prothrombin Time 13.7 SEC (11.7-14.0) Prothromb Time International Ratio 1.1 (0.8-1.1) Activated Partial Thromboplast Time 26 SEC (24-38) Sodium Level 145 mmol/L (136-145) Potassium Level 3.0 mmol/L (3.5-5.1) Chloride Level 107 mmol/L (98-107) Carbon Dioxide Level 30 mmol/L (21-32) Anion Gap 8 (6-14) Blood Urea Nitrogen 15 mg/dL (7-20) Creatinine 0.9 mg/dL (0.6-1.0) Estimated GFR (Cockcroft-Gault) 61.9 Glucose Level 121 mg/dL (70-99) Calcium Level 9.0 mg/dL (8.5-10.1) Total Bilirubin 0.5 mg/dL (0.2-1.0) Direct Bilirubin 0.2 mg/dL (0.0-0.2) Aspartate Amino Transf (AST/SGOT) 12 U/L (15-37) Alanine Aminotransferase (ALT/SGPT) 15 U/L (14-59) Alkaline Phosphatase 87 U/L (46-116) Troponin I Quantitative < 0.017 ng/mL (0.000-0.055) UV-Naz-O-Type Natriuretic Peptide 1562 pg/mL (0-124) Total Protein 6.6 g/dL (6.4-8.2) Albumin 3.7 g/dL (3.4-5.0) Lipase 92 U/L (73-393) ASSESSMENT/PLAN ASSESSMENT/PLAN 1. Chest pain: UA features. Abnormal EKG 2. CAD: CABG estimated in 2007 x3 with 8 prior stents. 3. HTN: controlled 4. HLP: refuses to take statin 5. PAD: new finding. 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 No abd pain, melena nor claudication symptoms. 6. AAA with borderline aneurysm to ascending aorta: infrarenal AAA 4.3 cm 2016 and presently 5.[address] 7. Suspect COPD with continued tobaccoism 8. Anxiety/stress/MENA: per PCP, likely from NTG 9. Hypokalemia Recommendations 1. Ischemic w/u, will discuss with primary program project manager. Heparin ongoing 2. TTE, TSH, lipids, Mg 3. ASA. Restart home toprol. 4. Xanax and lortab given 5. Vascular consult pending 6. Calin K. 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
[2018-03-12] MEDS ORDERED: HYDROcodone/APAP 7.5/325MG 1 TAB TABLET PO ONE (12:30)
[2018-03-12 12:38] LABS: CHOLESTEROL/HDL RATIO 5.6
[2018-03-12] MEDS ORDERED: METOPROLOL SUCC 24HR ER 25 MG TAB.ER.24H. PO SCH (13:00)
[2018-03-12] MEDS ORDERED: ASPIRIN CHEWABLE 81 MG TABLET. PO SCH (13:00)
[2018-03-12] MEDS ORDERED: POTASSIUM CHLORIDE 20 MEQ TABLET.ER. PO ONE (13:15)
[2018-03-12] MEDS ORDERED: LABETALOL 20 MG/4 ML DISP.SYRIN. IVP PRN (13:15)
[2018-03-12] MEDS ORDERED: ALPRAZolam 1 MG TABLET PO PRN (13:15)
--- NOTE | 2018-03-12 14:37 | PDOC2 ---
CONSULT Date of Consult Date of Consult DATE: 03/12/18 TIME: 14:09 Reason for Consult Reason for Consult: AAA, celiac and iliac artery stenosis Referring Physician Referring Physician: Vascular Surgery DANICA Green MD Identification/Chief Complaint Chief Complaint Chest pain Source Source: Patient History of Present Illness Reason for Visit: Patient presented to the emergency room with chest pain earlier today. She is a significant history of coronary artery disease, she reports she has had "9 heart attacks". Her cardiac workup has thus far been negative for acute DC. She has known aortic aneurysm, which measured 4.3 cm April 2017, and is measuring 5.[address] also revealed iliac, SMA and high grade celiac stenosis. She has no complaints of abdominal pain or back pain. When obtaining a history, patient reports "I just want to , I know I'm going to ". When discussing her arterial disease and discussing options for intervention, she reported "I'm going to let you do it so it bursts. They are all going to burst." She also repeatedly told me she did not want to stay here, she was going to "get out of here so I can have a cigarette." Needless to say it was difficult to obtain a history from the pt and do an exam. She is a chronic severe tobacco user. Past Medical History Cardiovascular: CAD, HTN, Hyperlipidemia (refuses statin) Pulmonary: No pertinent hx CENTRAL NERVOUS SYSTEM: Other (No pertinent history) GI: GERD Heme/Onc: Cancer (skin) Hepatobiliary: No pertinent hx Psych: Anxiety Musculoskeletal: Osteoarthritis Rheumatologic: No pertinent hx Infectious disease: No pertinent hx ENT: No pertinent hx Renal/: No pertinent hx Endocrine: No pertinent hx Dermatology: Other (skin CA) Past Surgical History Past Surgical History: Cholecystectomy, CABG (x3 10 yrs ago with 8 stents prior to it) Family History Family History: Coronary Artery Disease (father and mother) Social History 1 pack per day (>50 yrs) ALCOHOL: none Drugs: None Lives: with Family Current Problem List Problem List Problems Medical Problems: (1) Chest pain Status: Acute Current Medications Current Medications Current Medications Heparin Sodium (Porcine) (Heparin Sodium) 3,350 unit 1X ONCE IV ; Start at 07:30; Stop 03/12/18 at 07:40; Status DC Heparin Sodium/ Dextrose 500 ml @ 13.5 mls/hr CONT PRN IV SEE I/O RECORD; Start 03/12/18 at 07:30; Stop 03/12/18 at 07:40; Status DC Alprazolam (Xanax) 0.25 mg 1X ONCE PO Last administered on 03/12/18at 08:03; Start 03/12/18 at 08:00; Stop 03/12/18 at 08:01; Status DC Acetaminophen (Tylenol) 650 mg 1X ONCE PO ; Start 03/12/18 at 08:00; Stop at 08:01; Status DC Fentanyl Citrate (Fentanyl 2ml Vial) 25 mcg 1X PRN PRN IV SEVERE PAIN Last administered on 03/12/18at 08:03; Start 03/12/18 at 08:00 Iohexol (Omnipaque 300 Mg/ml) 90 ml 1X ONCE IV Last administered on at 08:15; Start 03/12/18 at 08:15; Stop 03/12/18 at 08:16; Status DC Info (CONTRAST GIVEN -- Rx MONITORING) 1 each PRN DAILY PRN MC SEE COMMENTS; Start 03/12/18 at 08:15; Stop 03/14/18 at 08:14 Nitroglycerin (Nitrostat) 0.4 mg PRN Q5MIN PRN SL CHEST PAIN Last administered on 03/12/18at 08:45; Start 03/12/18 at 08:30; Stop 03/12/18 at 10:45; Status DC Heparin Sodium (Porcine) (Heparin Sodium) 3,350 unit 1X ONCE IV Last administered on 03/12/18at 11:10; Start 03/12/18 at 10:15; Stop 03/12/18 at 10 :45; Status DC Heparin Sodium/ Dextrose 500 ml @ 13.5 mls/hr CONT PRN IV SEE I/O RECORD Last administered on 03/12/18at 11:12; Start 03/12/18 at 10:15 Ondansetron HCl (Zofran) 4 mg PRN Q8HRS PRN IV NAUSEA/VOMITING; Start at 10:15; Stop 03/13/18 at 10:14 Sodium Chloride 1,000 ml @ 100 mls/hr Q10H IV ; Start 03/12/18 at 10:13; Stop 03/12/18 at 14:12 Nitroglycerin (Nitrostat) 0.4 mg PRN Q5MIN PRN SL CHEST PAIN; Start 03/12/18 at 10:15; Stop 03/13/18 at 10:14 Acetaminophen/ Hydrocodone Bitart (Lortab 7.5/325) 1 tab 1X ONCE PO Last administered on 03/12/18at 12:35; Start 03/12/18 at 12:30; Stop 03/12/18 at 12 :31; Status DC Potassium Chloride (Klor-Con) 40 meq 1X ONCE PO ; Start 03/12/18 at 13:15; Stop 03/12/18 at 13:16; Status DC Atorvastatin Calcium (Lipitor) 40 mg QHS PO ; Start 03/12/18 at 21:00 Alprazolam (Xanax) 1 mg PRN DAILY PRN PO ANXIETY; Start 03/12/18 at 13:15 Aspirin (Children'S Aspirin) 81 mg DAILY PO ; Start 03/12/18 at 13:00 Metoprolol Succinate (Toprol Xl) 25 mg DAILY PO ; Start 03/12/18 at 13:00 Labetalol HCl (Normodyne Iv Push) 20 mg PRN Q2HR PRN IVP HYPERTENSION, SEE COMMENTS; Start 03/12/18 at 13:15 Active Scripts Active Doxycycline Hyclate 100 Mg Capsule 1 Cap PO BID Hydrocodone-Apap 5-325 (Hydrocodone Bit/Acetaminophen) 1 Each Tablet 1-2 Tab PO PRN Q6HRS PRN 5 Days Reported Aspirin 81 Mg Tab.chew 1 Tab PO DAILY Hydrocodone-Apap 10-325 (Hydrocodone Bit/Acetaminophen) 1 Each Tablet 1 Each PO PRN Xanax (Alprazolam) 1 Mg Tablet 1 Mg PO PRN Lisinopril 10 Mg Tablet 10 Mg PO DAILY Toprol Xl (Metoprolol Succinate) 25 Mg Tab.er.24h 25 Mg PO DAILY Allergies Allergies: Coded Allergies: Latex, Natural Rubber (Verified Allergy, Intermediate, Itching, 07/06/17) hydromorphone (Verified Adverse Reaction, Intermediate, 03/12/18) PT REPORTS THAT SHE DOES NOT LIKE THE WAY SHE FEELS ON DILAUDID. NO SYMPTOMS morphine (Verified Adverse Reaction, Intermediate, Nausea and Vomiting, ) ROS PSYCHOLOGICAL ROS: YES: Anxiety, Behavioral Disorder, Depression, Irritablity HEENT: YES: Heacaches Hematological and Lymphatic: No: Bleeding Problems, Blood Clots Respiratory: No: Cough, Shortness of breath Cardiovascular: No Chest Pain Gastrointestinal: No Nausea, No Vomiting, No Abdominal Pain Physical Exam General: Alert, Oriented X3, moderate distress ("can't find my xanax") HEENT: Atraumatic Lungs: Normal air movement Heart: Regular rate Extremities: Other (Strong radial pulses BL, palpable femoral pulses ) Neuro: Normal speech Psych/Mental Status: Mental status NL, Other (Labile affect, mood is dysphoric. Denies HI/SI. Makes appropriate eye contact) Vitals VITALS Vital Signs Date Time Temp Pulse Resp B/P (MAP) Pulse Ox O2 Delivery O2 Flow Rate FiO2 03/12/18 12:05 100 18 139/78 (98) 98 Room Air Labs Labs Laboratory Tests Test 03/12/18 07:15 03/12/18 13:10 White Blood Count 8.0 x10^3/uL (4.0-11.0) Red Blood Count 4.29 x10^6/uL (3.50-5.40) Hemoglobin 14.3 g/dL (12.0-15.5) Hematocrit 41.1 % (36.0-47.0) Mean Corpuscular Volume 96 fL (79-100) Mean Corpuscular Hemoglobin 33 pg (25-35) Mean Corpuscular Hemoglobin Concent 35 g/dL (31-37) Red Cell Distribution Width 13.1 % (11.5-14.5) Platelet Count 168 x10^3/uL (140-400) Neutrophils (%) (Auto) 79 % (31-73) Lymphocytes (%) (Auto) 14 % (24-48) Monocytes (%) (Auto) 5 % (0-9) Eosinophils (%) (Auto) 1 % (0-3) Basophils (%) (Auto) 1 % (0-3) Neutrophils # (Auto) 6.3 x10^3uL (1.8-7.7) Lymphocytes # (Auto) 1.1 x10^3/uL (1.0-4.8) Monocytes # (Auto) 0.4 x10^3/uL (0.0-1.1) Eosinophils # (Auto) 0.1 x10^3/uL (0.0-0.7) Basophils # (Auto) 0.0 x10^3/uL (0.0-0.2) Prothrombin Time 13.7 SEC (11.7-14.0) Prothromb Time International Ratio 1.1 (0.8-1.1) Activated Partial Thromboplast Time 26 SEC (24-38) Sodium Level 145 mmol/L (136-145) Potassium Level 3.0 mmol/L (3.5-5.1) Chloride Level 107 mmol/L (98-107) Carbon Dioxide Level 30 mmol/L (21-32) Anion Gap 8 (6-14) Blood Urea Nitrogen 15 mg/dL (7-20) Creatinine 0.9 mg/dL (0.6-1.0) Estimated GFR (Cockcroft-Gault) 61.9 Glucose Level 121 mg/dL (70-99) Calcium Level 9.0 mg/dL (8.5-10.1) Total Bilirubin 0.5 mg/dL (0.2-1.0) Direct Bilirubin 0.2 mg/dL (0.0-0.2) Aspartate Amino Transf (AST/SGOT) 12 U/L (15-37) Alanine Aminotransferase (ALT/SGPT) 15 U/L (14-59) Alkaline Phosphatase 87 U/L (46-116) Troponin I Quantitative < 0.017 ng/mL (0.000-0.055) < 0.017 ng/mL (0.000-0.055) FA-Jro-M-Type Natriuretic Peptide 1562 pg/mL (0-124) Total Protein 6.6 g/dL (6.4-8.2) Albumin 3.7 g/dL (3.4-5.0) Triglycerides Level 181 mg/dL (0-150) Cholesterol Level 224 mg/dL (0-200) LDL Cholesterol, Calculated 148 mg/dL (0-100) VLDL Cholesterol, Calculated 36 mg/dL (0-40) Non-HDL Cholesterol Calculated 184 mg/dL (0-129) HDL Cholesterol 40 mg/dL (40-60) Cholesterol/HDL Ratio 5.6 Lipase 92 U/L (73-393) Magnesium Level 2.3 mg/dL (1.8-2.4) Laboratory Tests Test 03/12/18 07:15 03/12/18 13:10 White Blood Count 8.0 x10^3/uL (4.0-11.0) Red Blood Count 4.29 x10^6/uL (3.50-5.40) Hemoglobin 14.3 g/dL (12.0-15.5) Hematocrit 41.1 % (36.0-47.0) Mean Corpuscular Volume 96 fL (79-100) Mean Corpuscular Hemoglobin 33 pg (25-35) Mean Corpuscular Hemoglobin Concent 35 g/dL (31-37) Red Cell Distribution Width 13.1 % (11.5-14.5) Platelet Count 168 x10^3/uL (140-400) Neutrophils (%) (Auto) 79 % (31-73) Lymphocytes (%) (Auto) 14 % (24-48) Monocytes (%) (Auto) 5 % (0-9) Eosinophils (%) (Auto) 1 % (0-3) Basophils (%) (Auto) 1 % (0-3) Neutrophils # (Auto) 6.3 x10^3uL (1.8-7.7) Lymphocytes # (Auto) 1.1 x10^3/uL (1.0-4.8) Monocytes # (Auto) 0.4 x10^3/uL (0.0-1.1) Eosinophils # (Auto) 0.1 x10^3/uL (0.0-0.7) Basophils # (Auto) 0.0 x10^3/uL (0.0-0.2) Prothrombin Time 13.7 SEC (11.7-14.0) Prothromb Time International Ratio 1.1 (0.8-1.1) Activated Partial Thromboplast Time 26 SEC (24-38) Sodium Level 145 mmol/L (136-145) Potassium Level 3.0 mmol/L (3.5-5.1) Chloride Level 107 mmol/L (98-107) Carbon Dioxide Level 30 mmol/L (21-32) Anion Gap 8 (6-14) Blood Urea Nitrogen 15 mg/dL (7-20) Creatinine 0.9 mg/dL (0.6-1.0) Estimated GFR (Cockcroft-Gault) 61.9 Glucose Level 121 mg/dL (70-99) Calcium Level 9.0 mg/dL (8.5-10.1) Total Bilirubin 0.5 mg/dL (0.2-1.0) Direct Bilirubin 0.2 mg/dL (0.0-0.2) Aspartate Amino Transf (AST/SGOT) 12 U/L (15-37) Alanine Aminotransferase (ALT/SGPT) 15 U/L (14-59) Alkaline Phosphatase 87 U/L (46-116) Troponin I Quantitative < 0.017 ng/mL (0.000-0.055) < 0.017 ng/mL (0.000-0.055) FA-Izg-G-Type Natriuretic Peptide 1562 pg/mL (0-124) Total Protein 6.6 g/dL (6.4-8.2) Albumin 3.7 g/dL (3.4-5.0) Triglycerides Level 181 mg/dL (0-150) Cholesterol Level 224 mg/dL (0-200) LDL Cholesterol, Calculated 148 mg/dL (0-100) VLDL Cholesterol, Calculated 36 mg/dL (0-40) Non-HDL Cholesterol Calculated 184 mg/dL (0-129) HDL Cholesterol 40 mg/dL (40-60) Cholesterol/HDL Ratio 5.6 Lipase 92 U/L (73-393) Magnesium Level 2.3 mg/dL (1.8-2.4) Assessment/Plan Assessment/Plan Pt with AAA at 5.1 cm from 4.3 in Apr 2017. She also has ascending thoracic aorta aneurysm, iliac, SMA and high grade celiac stenosis. She continues to aggressively smoke. She is noncooperative and has verbalized her wishes to , although reports she would not take her own life. She is actively threatening to leave AMA, I have encouraged her to stay to discuss options for arterial interventions with Dr. Yancey tomorrow. She is currently being evaluated by cardiology as well. I will discuss case with Dr. Yancey for further recommendations. STEVEN GREGORIO Mar 12, 2018 14:37
[2018-03-12 15:18] VITALS: BP 155/88
[2018-03-12] MEDS ORDERED: ATORVASTATIN CALCIUM 40 MG TABLET. PO SCH (21:00)
== END 2018-03-12 17:10 | disposition left against medical advice (07) | DRG 303 ==
LOC: ER 06:55 → 2 NORTH 12:00
PROVIDERS: ADMIT Family Medicine; ATTEND Family Medicine
DX: I25.110 Atherosclerotic heart disease of native coronary artery with unstable angina pectoris (principal); I77.4 Celiac artery compression syndrome; G12.9 Spinal muscular atrophy, unspecified; I71.4 Abdominal aortic aneurysm, without rupture; E78.5 Hyperlipidemia, unspecified; E87.6 Hypokalemia; F17.210 Nicotine dependence, cigarettes, uncomplicated; F41.9 Anxiety disorder, unspecified; G89.4 Chronic pain syndrome; I10 Essential (primary) hypertension; I71.2 Thoracic aortic aneurysm, without rupture; I25.10 Atherosclerotic heart disease of native coronary artery without angina pectoris; I25.2 Old myocardial infarction; I70.8 Atherosclerosis of other arteries; I73.9 Peripheral vascular disease, unspecified; M19.90 Unspecified osteoarthritis, unspecified site; J44.9 Chronic obstructive pulmonary disease, unspecified; K21.9 Gastro-esophageal reflux disease without esophagitis; Z53.21 Procedure and treatment not carried out due to patient leaving prior to being seen by health care provider; Z82.49 Family history of ischemic heart disease and other diseases of the circulatory system; Z86.79 Personal history of other diseases of the circulatory system; Z90.49 Acquired absence of other specified parts of digestive tract; Z95.1 Presence of aortocoronary bypass graft; Z85.828 Personal history of other malignant neoplasm of skin; Z91.040 Latex allergy status; Z88.8 Allergy status to other drugs, medicaments and biological substances; Z91.048 Other nonmedicinal substance allergy status; Z71.6 Tobacco abuse counseling; Z79.899 Other long term (current) drug therapy
CPT/HCPCS: 36415; 71045; 71275; 74174; 80048; 80061; 80076; 83690; 83735; 83880; 84484; 85025; 85610; 85730; 93005; 96365; 96366; 96375; 96376; J1644; J3010; Q9967; 99285-25

== ENCOUNTER 2018-03-14 17:06 | Inpatient (IN) | payer OTHER, BC ==
[~2018-03-14] VITALS: Ht 162.6 cm; Wt 57.2 kg
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
[2018-03-14 17:58] LABS: BASO # 0.1 x10^3/uL (0.0-0.2); BASO % 1 % (0-3); EOS # 0.1 x10^3/uL (0.0-0.7); EOS % 2 % (0-3); HEMATOCRIT 41.6 % (36.0-47.0); HEMOGLOBIN 14.8 g/dL (12.0-15.5); LYMPH # 2.2 x10^3/uL (1.0-4.8); LYMPH % 29 % (24-48); MEAN CORPUSCULAR HEMOGLOBIN 34 pg (25-35); MEAN CORPUSCULAR HGB CONC 36 g/dL (31-37); MEAN CORPUSCULAR VOLUME 96 fL (79-100); MONO # 0.5 x10^3/uL (0.0-1.1); MONO % 7 % (0-9); NEUT # 4.7 x10^3uL (1.8-7.7); NEUT % 62 % (31-73); PLATELET COUNT 156 x10^3/uL (140-400); RED BLOOD COUNT 4.32 x10^6/uL (3.50-5.40); RED CELL DISTRIBUTION WIDTH 13.3 % (11.5-14.5); WHITE BLOOD COUNT 7.6 x10^3/uL (4.0-11.0)
[2018-03-14 18:09] LABS: CALCIUM 9.4 mg/dL (8.5-10.1); CREATININE 0.9 mg/dL (0.6-1.0); GFR 61.9; POTASSIUM 3.2 mmol/L (3.5-5.1)
[2018-03-14] MEDS ORDERED: fentaNYL PF VIAL 100 MCG/2 ML VIAL IV ONE (18:15)
[2018-03-14] MEDS ORDERED: ACETAMINOPHEN 325 MG TABLET. PO PRN (18:15)
[2018-03-14] MEDS ORDERED: ONDANSETRON PF 4 MG/2 ML VIAL. IV PRN (18:15)
[2018-03-14] MEDS ORDERED: IOHEXOL 300 MG/ML 100ML VIAL. IV ONE (18:15)
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
[2018-03-14] MEDS: IV NORMAL SALINE 1000ML BAG 1,000 ML IV SCH (19:55)
[2018-03-14] MEDS ORDERED: METO-269 PO (20:28)
[2018-03-14] MEDS ORDERED: LISI-334 PO (20:28)
[2018-03-14] MEDS: fentaNYL PF VIAL 100 MCG/2 ML VIAL IV PRN (20:56)
[2018-03-14 21:06] VITALS: BP 180/102
[2018-03-14] MEDS ORDERED: ALPRAZolam 1 MG TABLET PO PRN (21:30)
[2018-03-14] MEDS: ALPRAZolam 1 MG TABLET PO SCH (22:11)
[2018-03-14] MEDS: ASPIRIN CHEWABLE 81 MG TABLET. PO SCH (22:11)
[2018-03-14] MEDS: LISINOPRIL 20 MG TABLET PO SCH (22:12)
[2018-03-14] MEDS: HYDROcodone/APAP 10/325 1 TAB TABLET PO PRN (22:13)
[2018-03-14] MEDS: METOPROLOL SUCC 24HR ER 25 MG TAB.ER.24H. PO SCH (22:14)
[2018-03-14 23:00] VITALS: BP 172/105
[2018-03-15 03:00] VITALS: BP 124/82
[2018-03-15] MEDS: fentaNYL PF VIAL 100 MCG/2 ML VIAL IV PRN (03:34)
[2018-03-15] MEDS: IV NORMAL SALINE 1000ML BAG 1,000 ML IV SCH (06:36)
[2018-03-15] MEDS: ALPRAZolam 1 MG TABLET PO SCH ×4 (06:36→20:36)
[2018-03-15] MEDS: HYDROcodone/APAP 10/325 1 TAB TABLET PO PRN ×4 (06:36→20:37)
--- NOTE | 2018-03-15 06:59 | EKG ---
[facility] [address] [place] [address] Test Date: 2018-03-14 Test Time: 17:27:35 Pat Name: TOÑO ROLLINS Department: Room: 586 1 Gender: F Health It Specialist: : 1945 Requested By: JENNI SOLIS Order Number: [id number] Reading MD: Adi Parekh MD Measurements Intervals [place] Rate: 93 P: -17 CO: 134 QRS: -18 QRSD: 86 T: 140 QT: 340 QTc: 425 Interpretive Statements SINUS RHYTHM PAC'S NON-SPECIFIC ST/T CHANGES Electronically Signed On 03-15-2018 11:49:36 CDT by Adi Parekh MD
[2018-03-15 07:00] VITALS: BP 119/75
--- NOTE | 2018-03-15 08:17 | PDOC ---
Provider Note Provider Note [id number] CONRAD HOLLOWAY MD Mar 15, 2018 08:17
[2018-03-15] MEDS ORDERED: ASPIRIN CHEWABLE 81 MG TABLET. PO SCH (09:00)
[2018-03-15] MEDS: LIDOCAINE (700MG/PATCH) PATCH. TD SCH (09:00)
[2018-03-15] MEDS ORDERED: METOPROLOL SUCC 24HR ER 25 MG TAB.ER.24H. PO SCH (09:00)
[2018-03-15] MEDS ORDERED: LISINOPRIL 20 MG TABLET PO SCH (09:00)
[2018-03-15] MEDS: ASPIRIN CHEWABLE 81 MG TABLET. PO SCH (09:09)
[2018-03-15] MEDS: METOPROLOL SUCC 24HR ER 25 MG TAB.ER.24H. PO SCH (09:10)
[2018-03-15] MEDS: LISINOPRIL 20 MG TABLET PO SCH (09:11)
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
[2018-03-15 11:00] VITALS: BP 116/68
[2018-03-15 15:00] VITALS: BP 129/83
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
[2018-03-15 19:00] VITALS: BP 110/63
[2018-03-15] MEDS: POTASSIUM CHLORIDE 20 MEQ TABLET.ER. PO SCH (20:36)
[2018-03-15] MEDS ORDERED: PATCH REMOVAL. MC SCH (21:00)
[2018-03-15 22:56] VITALS: BP 98/58
[2018-03-16] MEDS: HYDROcodone/APAP 10/325 1 TAB TABLET PO PRN ×3 (01:08→10:50)
[2018-03-16 03:00] VITALS: BP 115/38
[2018-03-16 07:00] VITALS: BP 118/68
[2018-03-16] MEDS ORDERED: LIDO700A39 TD (08:24)
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
[2018-03-16] MEDS: ALPRAZolam 1 MG TABLET PO SCH ×2 (08:54→12:56)
[2018-03-16] MEDS: ASPIRIN CHEWABLE 81 MG TABLET. PO SCH (08:55)
[2018-03-16] MEDS: LIDOCAINE (700MG/PATCH) PATCH. TD SCH (08:55)
[2018-03-16] MEDS: POTASSIUM CHLORIDE 20 MEQ TABLET.ER. PO SCH (08:55)
[2018-03-16] MEDS: LISINOPRIL 20 MG TABLET PO SCH (08:55)
[2018-03-16] MEDS: METOPROLOL SUCC 24HR ER 25 MG TAB.ER.24H. PO SCH (09:01)
[2018-03-16 11:00] VITALS: BP 130/81
== END 2018-03-16 13:30 | disposition home or self-care (01) | DRG 605 ==
LOC: ER 17:06 → 5 SOUTH 17:51
PROVIDERS: ADMIT Family Medicine; ATTEND Family Medicine
DX: S20.219A Contusion of unspecified front wall of thorax, initial encounter (principal); I71.4 Abdominal aortic aneurysm, without rupture; F17.200 Nicotine dependence, unspecified, uncomplicated; S69.91XA Unspecified injury of right wrist, hand and finger(s), initial encounter; I10 Essential (primary) hypertension; I25.10 Atherosclerotic heart disease of native coronary artery without angina pectoris; J44.9 Chronic obstructive pulmonary disease, unspecified; F41.9 Anxiety disorder, unspecified; F31.9 Bipolar disorder, unspecified; G89.29 Other chronic pain; Z86.79 Personal history of other diseases of the circulatory system; Z90.49 Acquired absence of other specified parts of digestive tract; Z88.8 Allergy status to other drugs, medicaments and biological substances; Z91.040 Latex allergy status; Z91.048 Other nonmedicinal substance allergy status; Z95.1 Presence of aortocoronary bypass graft; I25.2 Old myocardial infarction; Z79.899 Other long term (current) drug therapy; V49.88XA Car occupant (driver) (passenger) injured in other specified transport accidents, initial encounter; Y93.89 Activity, other specified; Y92.488 Other paved roadways as the place of occurrence of the external cause; Y99.8 Other external cause status; V89.2XXA Person injured in unspecified motor-vehicle accident, traffic, initial encounter; R07.89 Other chest pain
CPT/HCPCS: 36415; 70450; 71275; 72125; 73120; 74174; 80048; 84484; 85025; 93005; 96374; J3010; J7030; Q9967; 99285-25

== ENCOUNTER 2018-04-09 14:19 | Inpatient (IN) | payer BC, OTHER ==
[~2018-04-09] VITALS: Ht 165.1 cm; Wt 58.5 kg
[~2018-04-09 14:19] MED LIST changes: +LIDO700A39 TD; +LISI-334 PO; +METO-269 PO
--- NOTE | 2018-04-09 14:53 | RAD ---
CHEST AP ONLY Clinical Indication: Chest pain today Comparison: AP chest March 12, 2018. Findings: Median sternotomy wires and changes of CABG. Atherosclerotic and tortuous thoracic aorta. Cardiac size is normal. Lungs are clear. There is no pneumothorax. No pleural effusion is appreciated. No acute bone abnormality. IMPRESSION: No acute cardiopulmonary process. Electronically signed by: Nilesh Torres MD (04/09/2018 2:49 PM) [id number]
[2018-04-09 14:55] LABS: BASO % 1 % (0-3); EOS # 0.1 x10^3/uL (0.0-0.7); EOS % 2 % (0-3); HEMATOCRIT 41.4 % (36.0-47.0); HEMOGLOBIN 14.7 g/dL (12.0-15.5); LYMPH # 2.1 x10^3/uL (1.0-4.8); LYMPH % 27 % (24-48); MEAN CORPUSCULAR HEMOGLOBIN 34 pg (25-35); MEAN CORPUSCULAR HGB CONC 35 g/dL (31-37); MEAN CORPUSCULAR VOLUME 97 fL (79-100); MONO # 0.4 x10^3/uL (0.0-1.1); MONO % 5 % (0-9); NEUT # 4.9 x10^3uL (1.8-7.7); NEUT % 65 % (31-73); PLATELET COUNT 160 x10^3/uL (140-400); RED BLOOD COUNT 4.25 x10^6/uL (3.50-5.40); RED CELL DISTRIBUTION WIDTH 13.1 % (11.5-14.5); WHITE BLOOD COUNT 7.6 x10^3/uL (4.0-11.0)
[2018-04-09 15:06] LABS: CALCIUM 8.8 mg/dL (8.5-10.1); CREATININE 0.9 mg/dL (0.6-1.0); GFR 61.9; POTASSIUM 3.4 mmol/L (3.5-5.1); PROTHROMBIN TIME PATIENT 12.9 SEC (11.7-14.0)
[2018-04-09 15:11] LABS: ALBUMIN 3.4 g/dL (3.4-5.0); DIRECT BILIRUBIN 0.1 mg/dL (0.0-0.2); TOTAL BILIRUBIN 0.3 mg/dL (0.2-1.0); TOTAL PROTEIN 6.5 g/dL (6.4-8.2)
[2018-04-09] MEDS ORDERED: IV NORMAL SALINE 1000ML BAG 1,000 ML IV SCH (15:22)
--- NOTE | 2018-04-09 15:27 | PHYS DOC ---
Past Medical History Past Medical History: Anxiety, Bipolar, CAD, Hypertension, [place] Additional Past Medical Histor: HERNIATED DISC, ANEURYSM(AAA) Past Surgical History: Appendectomy, Cholecystectomy, Coronary Bypass Surgery Alcohol Use: None Drug Use: None Adult General Chief Complaint Chief Complaint: CHEST PAIN HPI HPI 72-year-old female presenting with chest pain. The pain started about 2 hours ago with exertion. It is a pressure sensation that radiates into the neck. She denies any fevers or chills. She denies unilateral leg swelling or history of blood clots. She does have a known AAA which she saw vascular for but has not proceeded with surgery. She denies abdominal pain right now. Review of systems is negative for shortness of breath fevers chills hemoptysis. All other review of systems is negative unless otherwise noted in history of present illness. ED course: 72-year-old female presenting to the emergency department today with chest pain. EKG and troponin are unremarkable. Blood work otherwise unremarkable. We will admit the patient for chest pain rule out. Review of Systems Review of Systems SEE ABOVE. Allergies Allergies Allergies Coded Allergies Type Severity Reaction Last Updated Verified Latex, Natural Rubber Allergy Intermediate Itching 07/06/17 Yes hydromorphone Adverse Reaction Intermediate 03/12/18 Yes morphine Adverse Reaction Intermediate Nausea and Vomiting 03/12/18 Yes Physical Exam Physical Exam SEE ABOVE Constitutional: Well developed, well nourished, no acute distress, non-toxic appearance. [] HENT: Normocephalic, atraumatic, bilateral external ears normal, oropharynx moist, no oral exudates, nose normal. [] Eyes: PERRLA, EOMI, conjunctiva normal, no discharge. [] Neck: Normal range of motion, no tenderness, supple, no stridor. [] Cardiovascular:Heart rate regular rhythm, no murmur [] Lungs & Thorax: Bilateral breath sounds clear to auscultation [] Abdomen: Bowel sounds normal, soft, no tenderness, no masses, no pulsatile masses. [] Skin: Warm, dry, no erythema, no rash. [] Back: No tenderness, no CVA tenderness. [] Extremities: No tenderness, no cyanosis, no clubbing, ROM intact, no edema. [] Neurologic: Alert and oriented X 3, normal motor function, normal sensory function, no focal deficits noted. [] Psychologic: Affect normal, judgement normal, mood normal. [] Current Patient Data Vital Signs Vital Signs Date Time Temp Pulse Resp B/P (MAP) Pulse Ox O2 Delivery O2 Flow Rate FiO2 04/09/18 15:00 77 21 113/65 (81) 97 Room Air 04/09/18 14:33 98.2 98.2 Lab Values Laboratory Tests Test 04/09/18 14:45 White Blood Count 7.6 x10^3/uL (4.0-11.0) Red Blood Count 4.25 x10^6/uL (3.50-5.40) Hemoglobin 14.7 g/dL (12.0-15.5) Hematocrit 41.4 % (36.0-47.0) Mean Corpuscular Volume 97 fL (79-100) Mean Corpuscular Hemoglobin 34 pg (25-35) Mean Corpuscular Hemoglobin Concent 35 g/dL (31-37) Red Cell Distribution Width 13.1 % (11.5-14.5) Platelet Count 160 x10^3/uL (140-400) Neutrophils (%) (Auto) 65 % (31-73) Lymphocytes (%) (Auto) 27 % (24-48) Monocytes (%) (Auto) 5 % (0-9) Eosinophils (%) (Auto) 2 % (0-3) Basophils (%) (Auto) 1 % (0-3) Neutrophils # (Auto) 4.9 x10^3uL (1.8-7.7) Lymphocytes # (Auto) 2.1 x10^3/uL (1.0-4.8) Monocytes # (Auto) 0.4 x10^3/uL (0.0-1.1) Eosinophils # (Auto) 0.1 x10^3/uL (0.0-0.7) Basophils # (Auto) 0.0 x10^3/uL (0.0-0.2) Prothrombin Time 12.9 SEC (11.7-14.0) Prothrombin Time INR 1.0 (0.8-1.1) PTT 28 SEC (24-38) Sodium Level 144 mmol/L (136-145) Potassium Level 3.4 mmol/L (3.5-5.1) L Chloride Level 105 mmol/L (98-107) Carbon Dioxide Level 30 mmol/L (21-32) Anion Gap 9 (6-14) Blood Urea Nitrogen 17 mg/dL (7-20) Creatinine 0.9 mg/dL (0.6-1.0) Estimated GFR (Cockcroft-Gault) 61.9 Glucose Level 154 mg/dL (70-99) H Calcium Level 8.8 mg/dL (8.5-10.1) Total Bilirubin 0.3 mg/dL (0.2-1.0) Direct Bilirubin 0.1 mg/dL (0.0-0.2) Aspartate Amino Transferase (AST) 14 U/L (15-37) L Alanine Aminotransferase (ALT) 19 U/L (14-59) Alkaline Phosphatase 142 U/L (46-116) H Troponin I Quantitative < 0.017 ng/mL (0.000-0.055) SP-Zog-P-Type Natriuretic Peptide 1225 pg/mL (0-124) H Total Protein 6.5 g/dL (6.4-8.2) Albumin 3.4 g/dL (3.4-5.0) Lipase 85 U/L (73-393) Laboratory Tests 04/09/18 14:45 Laboratory Tests 04/09/18 14:45 EKG EKG [] Radiology/Procedures Radiology/Procedures [] Course & Med Decision Making Course & Med Decision Making Pertinent Labs and Imaging studies reviewed. (See chart for details) [] Dragon Disclaimer Dragon Disclaimer This electronic medical record was generated, in whole or in part, using a voice recognition dictation system. Departure Departure Impression: Primary Impression: Chest pain Disposition: ADMITTED INPATIENT Admitting Physician: Lolita Barney Condition: STABLE Referrals: CONRAD HOLLOWAY MD (PCP) ADELAIDE DOMINGUEZ MD Apr 09, 2018 15:27
[2018-04-09] MEDS ORDERED: ONDANSETRON PF 4 MG/2 ML VIAL. IV PRN (15:30)
--- NOTE | 2018-04-09 17:32 | EKG ---
[facility] [address] [place] [address] Test Date: 2018-04-09 Test Time: 14:29:15 Pat Name: TOÑO ROLLINS Department: Room: 244 1 Gender: F Hand Former: : 1945 Requested By: ADELAIDE DOMINGUEZ Order Number: [id number] Reading MD: Adi Parekh MD Measurements Intervals [place] Rate: 79 P: 12 MT: 144 QRS: -11 QRSD: 86 T: 107 QT: 390 QTc: 448 Interpretive Statements SINUS RHYTHM ATRIAL PREMATURE COMPLEX(ES) Electronically Signed On 04-10-2018 7:48:52 GENERAL LABORER by Adi Parekh MD
[2018-04-09] MEDS ORDERED: ALPRAZolam 1 MG TABLET PO PRN (19:15)
[2018-04-09] MEDS ORDERED: HYDROcodone/APAP 10/325 1 TAB TABLET PO PRN (19:30)
[2018-04-09 19:55] VITALS: BP 108/61
[2018-04-09 23:29] VITALS: BP 101/58
[2018-04-10 03:50] LABS: BASO % 1 % (0-3); EOS # 0.2 x10^3/uL (0.0-0.7); EOS % 3 % (0-3); HEMATOCRIT 37.7 % (36.0-47.0); HEMOGLOBIN 13.2 g/dL (12.0-15.5); LYMPH # 1.8 x10^3/uL (1.0-4.8); LYMPH % 27 % (24-48); MEAN CORPUSCULAR HEMOGLOBIN 34 pg (25-35); MEAN CORPUSCULAR HGB CONC 35 g/dL (31-37); MEAN CORPUSCULAR VOLUME 97 fL (79-100); MONO # 0.4 x10^3/uL (0.0-1.1); MONO % 6 % (0-9); NEUT # 4.2 x10^3uL (1.8-7.7); NEUT % 64 % (31-73); PLATELET COUNT 148 x10^3/uL (140-400); RED CELL DISTRIBUTION WIDTH 13.3 % (11.5-14.5); WHITE BLOOD COUNT 6.5 x10^3/uL (4.0-11.0)
[2018-04-10 03:53] VITALS: BP 123/70
[2018-04-10 04:17] LABS: CALCIUM 8.6 mg/dL (8.5-10.1); CREATININE 0.7 mg/dL (0.6-1.0); GFR 82.7; POTASSIUM 3.5 mmol/L (3.5-5.1)
--- NOTE | 2018-04-10 07:50 | PDOC ---
Provider Note Provider Note Pt. left prior to being seen. Pls call if she returns. Thanks VERNA GONGORA MD Apr 10, 2018 07:50
[2018-04-10] MEDS ORDERED: LISINOPRIL 20 MG TABLET PO SCH (09:00)
[2018-04-10] MEDS ORDERED: METOPROLOL SUCC 24HR ER 25 MG TAB.ER.24H. PO SCH (09:00)
[2018-04-10] MEDS ORDERED: ASPIRIN CHEWABLE 81 MG TABLET. PO SCH (09:00)
--- NOTE | 2018-04-10 09:00 | PDOC ---
Provider Note Provider Note She left AMA prior to me seeing her. She has left AMA prior to evaluation on 2 previous admissions as well. Please call if she returns. PA BARAJAS MD Apr 10, 2018 09:00
== END 2018-04-10 09:41 | disposition left against medical advice (07) | DRG 313 ==
LOC: ER 14:19 → 2 SOUTH 15:21
PROVIDERS: ADMIT Family Medicine; ATTEND Family Medicine
DX: R07.89 Other chest pain (principal); I10 Essential (primary) hypertension; I25.10 Atherosclerotic heart disease of native coronary artery without angina pectoris; F41.9 Anxiety disorder, unspecified; I71.4 Abdominal aortic aneurysm, without rupture; F31.9 Bipolar disorder, unspecified; Z53.21 Procedure and treatment not carried out due to patient leaving prior to being seen by health care provider; Z90.49 Acquired absence of other specified parts of digestive tract; Z95.1 Presence of aortocoronary bypass graft; I25.2 Old myocardial infarction; Z91.040 Latex allergy status; Z88.8 Allergy status to other drugs, medicaments and biological substances; Z91.048 Other nonmedicinal substance allergy status; Z79.899 Other long term (current) drug therapy
CPT/HCPCS: 36415; 71045; 80048; 80076; 83690; 83880; 84484; 85025; 85610; 85730; 93005; 96360; 96361; J7030; 99285-25

== ENCOUNTER 2018-05-19 09:31 | Observation (INO) | payer BC ==
[~2018-05-19] VITALS: Ht 165.1 cm; Wt 49.6 kg
[~2018-05-19 09:31] MED LIST changes: -HYDR-2758 PO; +HYDR-2761 PO; -HYDR-2766 PO; +HYDR-2769 PO
--- NOTE | 2018-05-19 09:57 | PHYS DOC ---
Past Medical History Past Medical History: Anxiety, Bipolar, CAD, Hypertension, [place] Additional Past Medical Histor: HERNIATED DISC, ANEURYSM(AAA), thoracic aneurysm Past Surgical History: Appendectomy, Cholecystectomy, Coronary Bypass Surgery Smoking: Cigarettes, Less than 1pk/day Alcohol Use: None Drug Use: None Adult General Chief Complaint Chief Complaint: CHEST PAIN HPI HPI Patient is a 72 year old female who presents to the ER via EMS with complaints of substernal chest pain that radiates into her back and both of her arms. Pt states she was having an argument with her sister at home when the pain began two hours ago. 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 Pt denies any diaphoresis, shortness of breath, syncope, or swelling in extremities. She reports a history of thoracic and abdominal aortic aneurysms. Currently her pain is an 8/10, she describes it as constant, sharp, and stabbing pain. Pt states she is afraid her aneurysms are going to blow. Review of Systems Review of Systems Constitutional: Denies fever or chills [] Eyes: Denies change in visual acuity, redness, or eye pain [] HENT: Denies nasal congestion or sore throat [] Respiratory: Denies cough or shortness of breath [] Cardiovascular: No additional information not addressed in HPI [] GI: Denies abdominal pain, nausea, vomiting, or diarrhea [] : Denies dysuria or hematuria [] Musculoskeletal: Reports back pain denies joint pain [] Integument: Denies rash or skin lesions [] Neurologic: Denies headache, focal weakness or sensory changes [] All other systems were reviewed and found to be within normal limits, except as documented in this note. Current Medications Current Medications Current Medications Medications (Trade) Dose Ordered Sig/Amari Start Time Stop Time Status Last Admin Dose Admin Fentanyl Citrate (Fentanyl 2ml Vial) 100 mcg STK-MED ONCE 05/19/18 10:48 05/19/18 10:50 DC Lorazepam (Ativan) 0.5 mg 1X ONCE 05/19/18 11:15 05/19/18 11:17 DC 05/19/18 11:29 0.5 MG Nitroglycerin (Nitrostat) 0.4 mg PRN Q5MIN PRN 05/19/18 11:30 Allergies Allergies Allergies Coded Allergies Type Severity Reaction Last Updated Verified Latex, Natural Rubber Allergy Intermediate Itching 07/06/17 Yes hydromorphone Adverse Reaction Intermediate 03/12/18 Yes morphine Adverse Reaction Intermediate Nausea and Vomiting 03/12/18 Yes Physical Exam Physical Exam Constitutional: Well developed, well nourished, mild distress, non-toxic appearance. [] HENT: Normocephalic, atraumatic, bilateral external ears normal, oropharynx moist, no oral exudates, nose normal. [] Eyes: conjunctiva normal, no discharge. [] Cardiovascular:Heart rate regular rhythm, no murmur [] Lungs & Thorax: Bilateral breath sounds clear to auscultation [] Abdomen: Bowel sounds normal, soft, no tenderness, no masses, no pulsatile masses, no bruit. [] Skin: Warm, dry, no erythema, no rash. [] Back: No tenderness, no CVA tenderness. [] Extremities: No tenderness, no cyanosis, no clubbing, ROM intact, no edema. [] Neurologic: Alert and oriented X 3, normal motor function, normal sensory function, no focal deficits noted. [] Psychologic: Affect normal, judgement normal, mood anxious[] Current Patient Data Vital Signs Vital Signs Date Time Temp Pulse Resp B/P (MAP) Pulse Ox O2 Delivery O2 Flow Rate FiO2 05/19/18 10:54 18 98 Room Air 05/19/18 09:51 76 142/76 (98) 2.0 05/19/18 09:35 97.7 97.7 Lab Values Laboratory Tests Test 05/19/18 10:20 05/19/18 12:40 White Blood Count 7.4 x10^3/uL (4.0-11.0) Red Blood Count 4.32 x10^6/uL (3.50-5.40) Hemoglobin 14.9 g/dL (12.0-15.5) Hematocrit 41.7 % (36.0-47.0) Mean Corpuscular Volume 97 fL (79-100) Mean Corpuscular Hemoglobin 34 pg (25-35) Mean Corpuscular Hemoglobin Concent 36 g/dL (31-37) Red Cell Distribution Width 12.8 % (11.5-14.5) Platelet Count 172 x10^3/uL (140-400) Neutrophils (%) (Auto) 73 % (31-73) Lymphocytes (%) (Auto) 21 % (24-48) L Monocytes (%) (Auto) 5 % (0-9) Eosinophils (%) (Auto) 1 % (0-3) Basophils (%) (Auto) 1 % (0-3) Neutrophils # (Auto) 5.4 x10^3uL (1.8-7.7) Lymphocytes # (Auto) 1.5 x10^3/uL (1.0-4.8) Monocytes # (Auto) 0.4 x10^3/uL (0.0-1.1) Eosinophils # (Auto) 0.1 x10^3/uL (0.0-0.7) Basophils # (Auto) 0.1 x10^3/uL (0.0-0.2) Prothrombin Time 12.5 SEC (11.7-14.0) Prothrombin Time INR 1.0 (0.8-1.1) Sodium Level 146 mmol/L (136-145) H Potassium Level 3.9 mmol/L (3.5-5.1) Chloride Level 108 mmol/L (98-107) H Carbon Dioxide Level 30 mmol/L (21-32) Anion Gap 8 (6-14) Blood Urea Nitrogen 11 mg/dL (7-20) Creatinine 0.8 mg/dL (0.6-1.0) Estimated GFR (Cockcroft-Gault) 70.9 BUN/Creatinine Ratio 14 (6-20) Glucose Level 115 mg/dL (70-99) H Calcium Level 9.2 mg/dL (8.5-10.1) Total Bilirubin 0.4 mg/dL (0.2-1.0) Aspartate Amino Transferase (AST) 13 U/L (15-37) L Alanine Aminotransferase (ALT) 14 U/L (14-59) Alkaline Phosphatase 99 U/L (46-116) Creatine Kinase 15 U/L (26-192) L Creatine Kinase MB (Mass) 0.5 ng/mL (0.0-3.6) Creatine Kinase MB Relative Index 3.3 % (0-4) Troponin I Quantitative 0.038 ng/mL (0.000-0.055) 0.060 ng/mL (0.000-0.055) GX-Jyt-G-Type Natriuretic Peptide 1801 pg/mL (0-124) H Total Protein 6.5 g/dL (6.4-8.2) Albumin 3.4 g/dL (3.4-5.0) Albumin/Globulin Ratio 1.1 (1.0-1.7) Laboratory Tests 05/19/18 10:20 Laboratory Tests 05/19/18 10:20 EKG EKG 0941 SR no STEMI read by Dr. Boyd [] Radiology/Procedures Radiology/Procedures PROCEDURE: CHEST AP ONLY Chest radiograph 05/19/2018 9:44 AM INDICATION: Chest pain, shortness of air COMPARISON: April 09, 2018 TECHNIQUE: Portable upright frontal view of the chest is provided. FINDINGS: The cardiomediastinal silhouette is within normal limits. Median sternotomy changes are present. There are no pleural effusions. There is no pulmonary vascular congestion. There is no pneumothorax. Mild chronic interstitial changes are present. There is more confluent opacity in the right lower lobe which may represent pulmonary infiltrate in the appropriate clinical setting. No significant osseous abnormality is identified. IMPRESSION: Confluent airspace disease in the right lower lobe may represent pulmonary infiltrate in the appropriate clinical setting. Follow-up two-view chest radiograph may be of benefit in 4-6 weeks. [] Course & Med Decision Making Course & Med Decision Making Pertinent Labs and Imaging studies reviewed. (See chart for details) Admit for chest pain observation Bilateral blood pressures LA 150/80 RA 142/76 1218- spoke with Dr. Alvarez about patient. Dr. Alvarez reports that patient has been admitted to several hospitals for chest pain related issues over the last 2 months. Advised of elevated troponin. Per Dr. Alvarez he would like a repeat of troponin now, if not increased discharge patient and she has a scheduled appointment with him in the office today at 1420. 1252-Advised Dr. Alvarez that patient informed nurse that the heart cath that was supposed to be done at [facility] recently was refused by the patient. Discussed admission for chest pain observation, Dr. Alvarez agrees that patient needs to be observed. Admission orders written. [] Dragon Disclaimer Dragon Disclaimer This electronic medical record was generated, in whole or in part, using a voice recognition dictation system. Departure Departure Impression: Primary Impression: Chest pain Disposition: ADMITTED INPATIENT Admitting Physician: Larry Alvarez Condition: STABLE Referrals: LARRY ALVAREZ MD (PCP) Problem Qualifiers Primary Impression: Chest pain Chest pain type: unspecified Qualified Codes: R07.9 - Chest pain, unspecified JAMIE MCDANIEL FOOD SALES CLERK May 19, 2018 09:57
--- NOTE | 2018-05-19 09:57 | EKG ---
[facility] [address] [place] [address] Test Date: 2018-05-19 Test Time: 09:41:38 Pat Name: TOÑO ROLLINS Department: Room: Gender: F Paver Operator: : 1945 Requested By: JAMIE MCDANIEL Order Number: [id number] Reading MD: Billy Mcqueen Measurements Intervals [place] Rate: 76 P: -90 GA: 100 QRS: -22 QRSD: 88 T: 86 QT: 468 QTc: 531 Interpretive Statements SINUS RHYTHM LEFTWARD AXIS LVH WITH REPOLARIZATION ABNORMALITY PROLONGED QT ABNORMAL ECG Electronically Signed On 05-21-2018 17:27:13 PRESS DEPARTMENT MANAGER by Billy Mcqueen
--- NOTE | 2018-05-19 10:07 | RAD ---
Chest radiograph 05/19/2018 9:44 AM INDICATION: Chest pain, shortness of air COMPARISON: April 09, 2018 TECHNIQUE: Portable upright frontal view of the chest is provided. FINDINGS: The cardiomediastinal silhouette is within normal limits. Median sternotomy changes are present. There are no pleural effusions. There is no pulmonary vascular congestion. There is no pneumothorax. Mild chronic interstitial changes are present. There is more confluent opacity in the right lower lobe which may represent pulmonary infiltrate in the appropriate clinical setting. No significant osseous abnormality is identified. IMPRESSION: Confluent airspace disease in the right lower lobe may represent pulmonary infiltrate in the appropriate clinical setting. Follow-up two-view chest radiograph may be of benefit in 4-6 weeks. Electronically signed by: Francheska Patrick MD (05/19/2018 10:03 AM) [facility]
[2018-05-19 10:46] LABS: BASO # 0.1 x10^3/uL (0.0-0.2); BASO % 1 % (0-3); EOS # 0.1 x10^3/uL (0.0-0.7); EOS % 1 % (0-3); HEMATOCRIT 41.7 % (36.0-47.0); HEMOGLOBIN 14.9 g/dL (12.0-15.5); LYMPH # 1.5 x10^3/uL (1.0-4.8); LYMPH % 21 % (24-48); MEAN CORPUSCULAR HEMOGLOBIN 34 pg (25-35); MEAN CORPUSCULAR HGB CONC 36 g/dL (31-37); MEAN CORPUSCULAR VOLUME 97 fL (79-100); MONO # 0.4 x10^3/uL (0.0-1.1); MONO % 5 % (0-9); NEUT # 5.4 x10^3uL (1.8-7.7); NEUT % 73 % (31-73); PLATELET COUNT 172 x10^3/uL (140-400); RED BLOOD COUNT 4.32 x10^6/uL (3.50-5.40); RED CELL DISTRIBUTION WIDTH 12.8 % (11.5-14.5); WHITE BLOOD COUNT 7.4 x10^3/uL (4.0-11.0)
[2018-05-19] MEDS ORDERED: fentaNYL PF VIAL 100 MCG/2 ML VIAL ONE (10:48)
[2018-05-19 10:51] LABS: CALCIUM 9.2 mg/dL (8.5-10.1); CREATININE 0.8 mg/dL (0.6-1.0); GFR 70.9; POTASSIUM 3.9 mmol/L (3.5-5.1)
[2018-05-19 10:55] LABS: PROTHROMBIN TIME PATIENT 12.5 SEC (11.7-14.0)
[2018-05-19 10:57] LABS: ALBUMIN 3.4 g/dL (3.4-5.0); ALBUMIN/GLOBULIN RATIO 1.1 (1.0-1.7); TOTAL BILIRUBIN 0.4 mg/dL (0.2-1.0); TOTAL PROTEIN 6.5 g/dL (6.4-8.2)
[2018-05-19] MEDS ORDERED: fentaNYL PF VIAL 100 MCG/2 ML VIAL IV ONE (11:00)
[2018-05-19] MEDS ORDERED: NITROGLYCERIN SUBLINGUAL 0.4 MG BOTTLE OF 25. SL PRN (11:30)
[2018-05-19 14:50] VITALS: BP 136/73
--- NOTE | 2018-05-19 16:30 | PDOC2 ---
CARDIAC CONSULT DATE OF CONSULT Date of Consult DATE: 05/19/18 TIME: 16:21 REASON FOR CONSULT Reason for Consult: Chest pain REFERRING PHYSICIAN Referring Physician: Dr. Conteh SOURCE Source: Chart review, Patient HISTORY OF PRESENT ILLNESS HISTORY OF PRESENT ILLNESS This is a 72 yo female, with a history of CAD s/p CABG, who presented with complaints of chest pain. Patient reports pain began this am around 5 am while she was arguing with her sister in the kitchen. Located across her central chest. Describes as stabbing in nature. No associated SOA, dizziness, diaphoresis, palpitations, or nausea/vomiting. No recent illness, fevers, PND, or LE edema. Patient has had multiple admission both here and at [facility] for chest pain. Frequently leaves AMA. Underwent nuclear stress test at 05/04/18;- reportedly left AMA following stress testing. Conclusion; Normal perfusion. No significant fixed or reversible perfusion abnormalities seen. LV size and systolic function normal. Viability is preserved in all the segments. There are no high risk prognostic indictors present. However, the ECG portion of the study is positive for ischemia. During the stress, there is 1mm ST horizontal segment depresson seen in inferior and lateral leads, suggestive of ischemia. PAST MEDICAL HISTORY Past Medical History Cardiovascular: CAD, HTN, Hyperlipidemia (refuses statin) Pulmonary: No pertinent hx CENTRAL NERVOUS SYSTEM: Other (No pertinent history) GI: GERD Heme/Onc: Cancer (skin) Hepatobiliary: No pertinent hx Psych: Anxiety Musculoskeletal: Osteoarthritis Rheumatologic: No pertinent hx Infectious disease: No pertinent hx ENT: No pertinent hx Renal/: No pertinent hx Endocrine: No pertinent hx Dermatology: Other (skin CA) PAST SURGICAL HISTORY Past Surgical History Cholecystectomy, CABG (x3 10 yrs ago with 8 stents prior to it) FAMILY HISTORY Family History: Coronary Artery Disease SOCIAL HISTORY Social History Smoke: 1 pack per day (>50 yrs) ALCOHOL: none Drugs: None Lives: with Family CURRENT MEDICATIONS CURRENT MEDICATIONS Current Medications Medications (Trade) Dose Ordered Sig/Amari Route PRN Reason Start Time Stop Time Status Last Admin Dose Admin Fentanyl Citrate (Fentanyl 2ml Vial) 50 mcg 1X ONCE IV 05/19/18 11:00 05/19/18 11:01 DC 05/19/18 10:54 Lorazepam (Ativan) 0.5 mg 1X ONCE IV 05/19/18 11:15 05/19/18 11:17 DC 05/19/18 11:29 ALLERGIES ALLERGIES: Coded Allergies: Latex, Natural Rubber (Verified Allergy, Intermediate, Itching, 07/06/17) hydromorphone (Verified Adverse Reaction, Intermediate, 03/12/18) PT REPORTS THAT SHE DOES NOT LIKE THE WAY SHE FEELS ON DILAUDID. NO SYMPTOMS morphine (Verified Adverse Reaction, Intermediate, Nausea and Vomiting, ) ROS Review of System 14 point ROS conducted with pertinent positives noted above in HPI. PHYSICAL EXAM PHYSICAL EXAM General: Alert, Oriented X3, No acute distress, HEENT: Mucous membr. moist/pink Lungs: Clear to auscultation, Normal air movement Heart: Regular rate (SR), Other (3/6 systolic murmur) Abdomen: Soft, No tenderness Extremities: No cyanosis, No edema Skin: No breakdown, No significant lesion Neuro: Normal speech, Sensation intact Psych/Mental Status: Mental status NL, Mood NL MUSCULOSKELETAL: Osteoarthritic changes both hands VITALS VITALS Vital Signs Date Time Temp Pulse Resp B/P (MAP) Pulse Ox O2 Delivery O2 Flow Rate FiO2 05/19/18 15:15 Room Air 05/19/18 14:50 98.5 58 18 136/73 (94) 97 98.5 05/19/18 09:51 2.0 LABS Lab: Laboratory Tests Test 05/19/18 10:20 05/19/18 12:40 White Blood Count 7.4 x10^3/uL (4.0-11.0) Red Blood Count 4.32 x10^6/uL (3.50-5.40) Hemoglobin 14.9 g/dL (12.0-15.5) Hematocrit 41.7 % (36.0-47.0) Mean Corpuscular Volume 97 fL (79-100) Mean Corpuscular Hemoglobin 34 pg (25-35) Mean Corpuscular Hemoglobin Concent 36 g/dL (31-37) Red Cell Distribution Width 12.8 % (11.5-14.5) Platelet Count 172 x10^3/uL (140-400) Neutrophils (%) (Auto) 73 % (31-73) Lymphocytes (%) (Auto) 21 % (24-48) Monocytes (%) (Auto) 5 % (0-9) Eosinophils (%) (Auto) 1 % (0-3) Basophils (%) (Auto) 1 % (0-3) Neutrophils # (Auto) 5.4 x10^3uL (1.8-7.7) Lymphocytes # (Auto) 1.5 x10^3/uL (1.0-4.8) Monocytes # (Auto) 0.4 x10^3/uL (0.0-1.1) Eosinophils # (Auto) 0.1 x10^3/uL (0.0-0.7) Basophils # (Auto) 0.1 x10^3/uL (0.0-0.2) Prothrombin Time 12.5 SEC (11.7-14.0) Prothromb Time International Ratio 1.0 (0.8-1.1) Sodium Level 146 mmol/L (136-145) Potassium Level 3.9 mmol/L (3.5-5.1) Chloride Level 108 mmol/L (98-107) Carbon Dioxide Level 30 mmol/L (21-32) Anion Gap 8 (6-14) Blood Urea Nitrogen 11 mg/dL (7-20) Creatinine 0.8 mg/dL (0.6-1.0) Estimated GFR (Cockcroft-Gault) 70.9 BUN/Creatinine Ratio 14 (6-20) Glucose Level 115 mg/dL (70-99) Calcium Level 9.2 mg/dL (8.5-10.1) Total Bilirubin 0.4 mg/dL (0.2-1.0) Aspartate Amino Transf (AST/SGOT) 13 U/L (15-37) Alanine Aminotransferase (ALT/SGPT) 14 U/L (14-59) Alkaline Phosphatase 99 U/L (46-116) Creatine Kinase 15 U/L (26-192) Creatine Kinase MB (Mass) 0.5 ng/mL (0.0-3.6) Creatine Kinase MB Relative Index 3.3 % (0-4) Troponin I Quantitative 0.038 ng/mL (0.000-0.055) 0.060 ng/mL (0.000-0.055) OW-Nzp-L-Type Natriuretic Peptide 1801 pg/mL (0-124) Total Protein 6.5 g/dL (6.4-8.2) Albumin 3.4 g/dL (3.4-5.0) Albumin/Globulin Ratio 1.1 (1.0-1.7) STRESS TEST STRESS TEST Regadenoson MPI Stress Test 05/04/18 Conclusion Normal perfusion. No significant fixed or reversible perfusion abnormalities seen. LV size and systolic function normal. Viability is preserved in all the segments. There are no high risk prognostic indictors present. However, the ECG portion of the study is positive for ischemia. During the stress, there is 1mm ST horizontal segment depresson seen in inferior and lateral leads, suggestive of ischemia. ASSESSMENT/PLAN ASSESSMENT/PLAN 1. Chest pain, atypical. EKG without significant acute changes. Anxiety adn BP probable contributing factor. Patient considering leaving AMA. 2. NSTEMI; highest 0.06. Most probably type II, demand ischemia related to uncontrolled BP. 3. Accelerated HTN: now better controlled 4. CAD: s/p CABG estimated in 2007 x3 with 8 prior stents. 5. HLP: LDL 148 02/2018. refuses statin 6. PAD: new finding. 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 No abd pain, melena nor claudication symptoms. 7. AAA with borderline aneurysm to ascending aorta: infrarenal AAA 4.3 cm 2016 and presently 5.[address] Refused surgical intervention 8. Suspect COPD with continued tobaccoism 9. Anxiety Recommendations ASA. Restart home Toprol and lisinopril Trend troponin Discussed/encouraged smoking cessation Monitor overnight. SREEKANTH JAMES APRN May 19, 2018 16:30
[2018-05-19] MEDS: ALPRAZolam 1 MG TABLET PO PRN (17:09)
[2018-05-19 19:00] VITALS: BP 101/55
[2018-05-19 23:20] VITALS: BP 109/62
[2018-05-20] VITALS (8 sets, daily range): BP systolic 104–176; BP diastolic 57–84
[2018-05-20] MEDS: ALPRAZolam 1 MG TABLET PO PRN ×3 (03:47→14:37)
[2018-05-20] MEDS: ASPIRIN ENTERIC COATED 81 MG TABLET.DR. PO SCH (08:23)
--- NOTE | 2018-05-20 08:33 | EKG ---
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
--- NOTE | 2018-05-20 08:47 | PDOC ---
Provider Note Provider Note [id number] CONRAD HOLLOWAY MD May 20, 2018 08:47
[2018-05-20 08:54] LABS: CHOLESTEROL/HDL RATIO 4.7
[2018-05-20] MEDS ORDERED: METOPROLOL SUCC 24HR ER 25 MG TAB.ER.24H. PO SCH (09:00)
[2018-05-20] MEDS: LISINOPRIL 20 MG TABLET PO SCH ×2 (09:00→11:41)
--- NOTE | 2018-05-20 09:56 | HP ---
ADMIT DATE: 05/19/2018 CHIEF COMPLAINT: Chest pain. HISTORY OF PRESENT ILLNESS: A 72-year-old white female with known prior coronary bypass with stent placement, also has an aortic aneurysm, severe PVD and COPD. She was at [facility] last week for chest pain and EKG changes that were suspicious for ischemic change despite the isotope pattern looking normal. Catheterization was recommended. She declined left AMA. She was having an argument with her sister yesterday and had crushing heavy chest pain radiating to both arms into her neck with sweating and weakness. She came in, and troponin was mildly elevated and continue to rise to a peak of 1.7 this morning. She has had no further chest pain and was considering leaving AMA prior to this interview. Past history of bypass was about 10 years ago. MEDICATIONS: Multiple meds listed per the chart. ALLERGIES: DILAUDID. She takes hydrocodone for chronic pain. SOCIAL HISTORY: Still a heavy smoker. Recent chaotic social situation, , in and out of different homes, nondirected to my knowledge. FAMILY HISTORY: Unremarkable. REVIEW OF SYSTEMS: She has pain in both legs when she walks, chronic shortness of breath and general malaise. OBJECTIVE: ENT: Unremarkable. NECK: No masses, nodes or bruits. LUNGS: Decreased breath sounds, diffuse wheezes. CARDIOVASCULAR: Regular rate. Rate is about 50. No murmur, rubs heard. ABDOMEN: Soft, benign, nontender. EXTREMITIES: Very poor pedal and radial pulses, 2+ clubbing. No joint or skin lesions. SKIN: Turgor is normal. NEUROLOGIC: Physiologic and nonfocal. She is depressed, but oriented x 4 and answers questions correctly. ASSESSMENT: 1. Chest pain and elevated troponin progressively consistent with non-ST elevation myocardial infarction. Prior coronary bypass, stent placements and recent abnormal MPI indicate likelihood of severe coronary artery disease. 2. 5 cm aortic aneurysm. 3. Chronic obstructive pulmonary disease, chronic tobacco abuse. 4. Peripheral arterial disease. 5. Chronic nonmalignant pain and chronic anxiety disorder. PLAN: Strongly encouraged to stay for at least a cardiac opinion regarding cardiac catheterization. She has declined statins in the past. We will start that today with her consent. Also blunt possibility that if she leaves AMA, she is at high risk for fatal cardiac event and both she and her expressed understanding. CONRAD HOLLOWAY MD DR: ILAN/quentin JOB#: [id number] / [id number]
--- NOTE | 2018-05-20 12:07 | PDOC ---
CARDIO Progress Notes Date and Time Date of Service 05/20/2017 Time of Evaluation 1140 Subjective Subjective: No Chest Pain, No shortness of breath, No Palpitations Vitals Vitals Vital Signs Date Time Temp Pulse Resp B/P (MAP) Pulse Ox O2 Delivery O2 Flow Rate FiO2 05/20/18 11:41 50 05/20/18 11:16 98.1 12 138/67 (90) 98 Room Air 98.1 05/19/18 10:50 2.0 Weight Weight [ ] Input and Output Intake and Output Intake and Output 05/20/18 07:01 Intake Total 940 ml Output Total 200 ml Balance 740 ml Intake Oral 940 ml Output Urine Total 200 ml # Voids 2 Laboratory Labs Laboratory Tests Test 05/19/18 12:40 05/19/18 18:05 05/20/18 00:30 Troponin I Quantitative 0.060 ng/mL (0.000-0.055) 0.833 ng/mL (0.000-0.055) 1.715 ng/mL (0.000-0.055) Triglycerides Level 136 mg/dL (0-150) Cholesterol Level 175 mg/dL (0-200) LDL Cholesterol, Calculated 111 mg/dL (0-100) VLDL Cholesterol, Calculated 27 mg/dL (0-40) Non-HDL Cholesterol Calculated 138 mg/dL (0-129) HDL Cholesterol 37 mg/dL (40-60) Cholesterol/HDL Ratio 4.7 Physical Exam HEENT: Neck Supple W Full Motion Chest: Symmetric LUNGS: Clear to Auscultation Heart: S1S2, RRR (SR) Abdomen: Soft N/T Extremities: No Calf Tenderness Neurology: alert, oriented, follow commands Assessment Assessment NSTEMI: trop at 1.7. NO further CP CAD: past CABG HTN:controlled Infrarenal AAA: 5.1 cm refused surgery in the past. 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 No claudication symptoms. COPD with continued tobaccoism HLP: refused statin Recommendations 1. LHC today, risks and benefits discussed agreeable to proceed 2. Secondary prevention measures 3. Smoking cessation AUGUSTA PHAM APRN May 20, 2018 12:07
--- NOTE | 2018-05-20 14:27 | NUR ---
SS following for discharge planning. SS reviewed pt chart and met with pt's RN. Pt is from home with spouse and reports having unstable living situation. Pt's RN reported that pt is scheduled to have cardiac catheterization. Pt reporting that she will discharge to home. Pt's RN reported no needs at this time. SS will continue to follow for pending needs.
[2018-05-20] MEDS: HYDROcodone/APAP 10/325 1 TAB TABLET PO PRN ×2 (14:37→22:23)
[2018-05-20] MEDS ORDERED: IODIXANOL 320 MG/ML 100 ML VIAL. ONE ×2 (16:40→17:33)
[2018-05-20] MEDS ORDERED: LIDOCAINE 1% PF 2 ML VIAL. ONE (16:40)
[2018-05-20] MEDS ORDERED: MIDAZOLAM HCL/PF 2 MG/2 ML VIAL. ONE (17:05)
[2018-05-20] MEDS ORDERED: fentaNYL PF VIAL 100 MCG/2 ML VIAL ONE (17:05)
[2018-05-20] MEDS ORDERED: LIDOCAINE 1% PF 30 ML VIAL. ONE (17:06)
[2018-05-20] MEDS ORDERED: NITROGLYCERIN 200 MCG/2 ML SYRINGE FOR CATH/VASC LAB. ONE (17:37)
[2018-05-20] MEDS ORDERED: hydrALAZINE 20 MG/ML VIAL. ONE (17:42)
[2018-05-20] MEDS ORDERED: IODIXANOL 320 MG/ML 100 ML VIAL. IART ONE (17:45)
[2018-05-20] MEDS ORDERED: NITROGLYCERIN 200 MCG/2 ML SYRINGE FOR CATH/VASC LAB. ICAR ONE (17:45)
[2018-05-20] MEDS ORDERED: fentaNYL PF VIAL 100 MCG/2 ML VIAL IV ONE (17:45)
[2018-05-20] MEDS ORDERED: LIDOCAINE 1% PF 30 ML VIAL. INJ ONE (17:45)
[2018-05-20] MEDS ORDERED: MIDAZOLAM HCL/PF 2 MG/2 ML VIAL. IV ONE (17:45)
[2018-05-20] MEDS ORDERED: FUROSEMIDE 100 MG/10 ML VIAL. ONE (17:51)
[2018-05-20] MEDS ORDERED: FUROSEMIDE 40 MG/4 ML VIAL. IVP ONE (18:00)
[2018-05-20] MEDS ORDERED: hydrALAZINE 20 MG/ML VIAL. IVP ONE (18:00)
[2018-05-20] MEDS ORDERED: METOPROLOL SUCC 24HR ER 25 MG TAB.ER.24H. PO ONE (18:15)
[2018-05-20] MEDS ORDERED: fentaNYL PF VIAL 100 MCG/2 ML VIAL IV PRN (19:15)
[2018-05-20] MEDS ORDERED: ATORVASTATIN CALCIUM 20 MG TABLET PO SCH (21:00)
[2018-05-21 02:45] VITALS: BP 133/59
[2018-05-21] MEDS: ALPRAZolam 1 MG TABLET PO PRN ×2 (02:45→09:04)
[2018-05-21 07:00] VITALS: BP 112/66
[2018-05-21 08:44] VITALS: BP 112/65
[2018-05-21] MEDS: ASPIRIN ENTERIC COATED 81 MG TABLET.DR. PO SCH (08:44)
[2018-05-21] MEDS: LISINOPRIL 20 MG TABLET PO SCH (08:44)
--- NOTE | 2018-05-21 08:59 | PDOC ---
Provider Note Provider Note too latia after metop 75, will try 12.5 bid- keep on ator- can dc when ok w/ cv and a place to go CONRAD HOLLOWAY MD May 21, 2018 08:59
--- NOTE | 2018-05-21 09:08 | CARD ---
MR#: [id number] Date of Study: 05/20/2018 Ordering Physician: AUGUSTA PHAM, Referring Physician: CONRAD HOLLOWAY Tech: Zoila Mccollum RTR APPROVED REPORT Technologist: Zoila Mccollum RTR Nurse: Sandra Chan R.N. Procedure(s) performed: Moderate Sedation time: 54 minutes LHC, coronary angiography, bypass angiography HISTORY The patient is a 72 year-old female with a history of : coronary artery disease, hypertension, dyslip idemia. INDICATION The indication(s) include : unstable angina . PROCEDURE NARRATIVE After explaining the risks and benefits of the procedure and alternatives, informed consent was obtai kailey. The patient was brought electively to the cardiac catheterization lab in a fasting state. A agnes eout was performed confirming the patient's name, date of , procedure, and site of procedure. A ll necessary personnel were wearing the appropriate protective equipment and radiation monitor device s. (See nursing notes for medications administered). The right groin was sterilely prepped and drap ed in the usual fashion. The right groin was infiltrated with 10 mL of 2% lidocaine for subcutaneous anesthesia. A 6 F sheath was inserted into the right femoral artery without difficulty. Right and left coronary angiography was performed using a JR4 and JL4 catheter. Left ventricular end diastolic pressure was obtained with a pigtail catheter and pullback was performed after left ventriculography . All catheter exchanges and advancements were performed over a guidewire. At case completion the r ight femoral sheath was removed and hemostasis was achieved with an Angioseal Device after limited fe moral angiography confirmed adequate vessel size and anatomy. There were no acute complications. HEMODYNAMICS: AO: 180/80 LVEDP 39 mm Hg No gradient on LV to aortic pullback. CORONARY ANGIOGRAPHY: LM is severely diseased and has a proximal subtotal occlusion. LAD is a moderate caliber vessel with a proximal occlusion. The distal vessel fills via a patent SAURABH graft and has no significant disease. LCx is a moderate caliber non-dominant vessel with a proximal 100% occlusion. OM1 is a moderate caliber vessel with a proximal occlusion, the distal vessel fills via a patent vein graft. RCA is a large caliber dominant vessel proximal 100% occlusion at site of previous stents. RPDA is a small caliber (less than 2mm) vessel with an ostial 90% stenosis at the site of graft anast omosis RPL is a small caliber vessel that fills via a patent miko graft. BYPASS ANGIOGRAPHY: BARRETO to LAD - patent SVG to OM1 - patent SVG to RCA bifurcation - there is a 90% stenosis just distal to the touchdown of the graft involving the small caliber PDA but the RPL is well filled from the SVG. Conclusion 1. Severe [place] three vessel coronary disease. 2. Elevated left sided filling pressures at LVEDP of 39 mm Hg 3. 3/3 grafts patent Recommendations 1. Aggressive medical therapy 2. Patient was quite anxious and has no easily fixable lesions. Her pain is likely mostly related to anxiety and small vessel disease. Signed by : Adi Parekh, Electronically Approved : 05/21/2018 09:07:09
[2018-05-21] MEDS ORDERED: METOPROLOL TART IMMED RELEASE 25 MG TABLET. PO SCH (09:30)
--- NOTE | 2018-05-21 10:00 | NUR ---
Patient noted to be getting dressed and asked RN to remove her IV. Patient states "insurance will not pay for my stay" and she needs to leave now. Education given on risks of this and patients states v/u. States her and her have no place to go but will pay for a motel. IV removed and AMA form signed. Pt given brief education on post cath including s/s requiring further attention, activity level, follow up, site care, d/c medications, and bleeding. Dr. Alvarez informed of this decision. New medications called into [facility] prior to AMA d/c.
--- NOTE | 2018-05-21 13:01 | DS ---
DATE OF DISCHARGE: 05/21/2018 Discharged against medical advice on 05/21/2018 HOSPITAL SUMMARY: A 72-year-old white female with known coronary artery disease, COPD and chronic pain, came in with chest pain suspicious for unstable angina or acute VA. She had been at [facility] and a stress test had been abnormal as an MPI but she had declined catheterization at that time. Troponin was mildly elevated on admission and went up to 1.5, consistent with NSTEMI. EKG showed no change and laboratory studies were unremarkable. She was taken to the labor and employment paralegal by Dr. Parekh and she had some occlusion of old vessels that had been bypassed but no acute reversible lesions and it was felt that medical treatment was most needed. Metoprolol was added in low doses and she left in the morning after the cath prior to being seen by the freight car repairer. FINAL DIAGNOSES: 1. Non-ST elevated myocardial infarction secondary to coronary artery disease. 2. Hyperlipidemia. 3. Chronic tobacco abuse and chronic obstructive pulmonary disease. OPERATIONS AND PROCEDURES: Cardiac catheterization. COMPLICATIONS: None. CONSULTATIONS: Dr. Parekh. DISPOSITION: Recommended adding atorvastatin 20 mg and metoprolol 12.5 mg twice a day, but she left the hospital before those prescriptions were made available to her. Continue all meds the same. Prognosis is poor because of continued tobacco abuse and multiple medical problems and chaotic social situation. CONRAD HOLLOWAY MD DR: ILAN/nts JOB#: [id number] / [id number]
== END 2018-05-21 10:15 | disposition left against medical advice (07) ==
LOC: ER 09:31 → 2 SOUTH 12:49
PROVIDERS: ADMIT Family Medicine; ATTEND Family Medicine
DX: I21.4 Non-ST elevation (NSTEMI) myocardial infarction (principal); I25.10 Atherosclerotic heart disease of native coronary artery without angina pectoris; E78.5 Hyperlipidemia, unspecified; F17.210 Nicotine dependence, cigarettes, uncomplicated; J44.9 Chronic obstructive pulmonary disease, unspecified; I10 Essential (primary) hypertension; F41.9 Anxiety disorder, unspecified; G89.29 Other chronic pain; F31.9 Bipolar disorder, unspecified; I73.9 Peripheral vascular disease, unspecified; I71.4 Abdominal aortic aneurysm, without rupture; I77.4 Celiac artery compression syndrome; Z95.1 Presence of aortocoronary bypass graft; Z90.49 Acquired absence of other specified parts of digestive tract; Z85.828 Personal history of other malignant neoplasm of skin; Z82.49 Family history of ischemic heart disease and other diseases of the circulatory system
CPT/HCPCS: 36415; 71045; 80053; 80061; 82553; 83880; 84484; 85025; 85610; 93005; 93459; 96374; 96375; 96376; 99284; C1769; C1771; C1892; G0269; G0378; J0360; J1644; J1940; J2060; J2250; J3010; J3490; 99152; 99153; G0379

== ENCOUNTER 2018-08-19 10:20 | Emergency (ER) | payer BC ==
[~2018-08-19] VITALS: Ht 167.6 cm; Wt 49.9 kg
--- NOTE | 2018-08-19 10:39 | PHYS DOC ---
Past Medical History Past Medical History: Anxiety, Bipolar, CAD, Hypertension, [place] Additional Past Medical Histor: HERNIATED DISC, ANEURYSM(AAA), thoracic aneurysm Past Surgical History: Appendectomy, Cholecystectomy, Coronary Bypass Surgery Alcohol Use: Sober Drug Use: None Adult General Chief Complaint Chief Complaint: CHEST PAIN HPI HPI Patient is a 72 year old female with history of anxiety, bipolar, [place] with open heart surgery, she doesn't remember when she had open heart surgery who presents to the ED today complaining of a 5 out of 10 sharp anterior bilateral chest pain that began an hour prior to coming to the ED. Patient describes the pain as sharp, denies any radiation of the pain. She she states she took nitroglycerin which decreased the pain from 5/10 to 0/10. She currently does not have any chest pain. Patient denies any shortness of breath. Denies any nausea /vomiting. Denies anything specific exacerbating the pain. She states she was seen in the ED a month ago and was admitted for chest pain but they could not do anything for it because her arteries were clogged. PCP Dr. Conrad Holloway Review of Systems Review of Systems Constitutional: Denies fever or chills [] Eyes: Denies change in visual acuity, redness, or eye pain [] HENT: Denies nasal congestion or sore throat [] Respiratory: Denies cough or shortness of breath [] Cardiovascular: Reports chest pain GI: Denies abdominal pain, nausea, vomiting, bloody stools or diarrhea [] : Denies dysuria or hematuria [] Musculoskeletal: Denies back pain or joint pain [] Integument: Denies rash or skin lesions [] Neurologic: Denies headache, focal weakness or sensory changes [] All other systems were reviewed and found to be within normal limits, except as documented in this note. Current Medications Current Medications Current Medications Medications (Trade) Dose Ordered Sig/Amari Start Time Stop Time Status Last Admin Dose Admin Aspirin (Oliva Aspirin) 325 mg 1X ONCE 08/19/18 11:15 08/19/18 11:16 DC 08/19/18 10:56 325 MG Ceftriaxone Sodium (Rocephin) 1 gm 1X ONCE 08/19/18 13:00 08/19/18 13:01 DC 08/19/18 12:40 1 GM Iohexol (Omnipaque 350 Mg/ml) 80 ml 1X ONCE 08/19/18 12:00 08/19/18 12:03 DC 08/19/18 12:00 80 ML Morphine Sulfate (Morphine Sulfate) 2 mg PRN Q15MIN PRN 08/19/18 10:45 08/20/18 10:44 Nitroglycerin (Nitrostat) 0.4 mg PRN Q5MIN PRN 08/19/18 10:45 08/20/18 10:44 Allergies Allergies Allergies Coded Allergies Type Severity Reaction Last Updated Verified Latex, Natural Rubber Allergy Intermediate Itching 07/06/17 Yes hydromorphone Adverse Reaction Intermediate 03/12/18 Yes morphine Adverse Reaction Intermediate Nausea and Vomiting 03/12/18 Yes Physical Exam Physical Exam Constitutional: Well developed, well nourished, no acute distress, non-toxic appearance. [] HENT: Normocephalic, atraumatic, bilateral external ears normal, oropharynx moist, no oral exudates, nose normal. [] Eyes: PERRLA, EOMI, conjunctiva normal, no discharge. [] Neck: Normal range of motion, no tenderness, supple, no stridor. [] Cardiovascular: Old healed surgical incision noted midline chest. Heart rate regular rhythm, no murmur [] Lungs & Thorax: Bilateral breath sounds clear to auscultation [] Abdomen: Bowel sounds normal, soft, no tenderness, no masses, no pulsatile masses. [] Skin: Warm, dry, no erythema, no rash. [] Back: No tenderness, no CVA tenderness. [] Extremities: No tenderness, no cyanosis, no clubbing, ROM intact, no edema. [] Neurologic: Alert and oriented X 3, normal motor function, normal sensory function, no focal deficits noted. [] Psychologic: Affect normal, judgement normal, mood normal. [] Current Patient Data Vital Signs Vital Signs Date Time Temp Pulse Resp B/P (MAP) Pulse Ox O2 Delivery O2 Flow Rate FiO2 08/19/18 12:39 20 141/78 (99) Room Air 08/19/18 12:00 74 99 08/19/18 10:27 98.5 98.5 Lab Values Laboratory Tests Test 08/19/18 10:38 08/19/18 11:20 White Blood Count 6.5 x10^3/uL (4.0-11.0) Red Blood Count 4.60 x10^6/uL (3.50-5.40) Hemoglobin 15.6 g/dL (12.0-15.5) H Hematocrit 45.0 % (36.0-47.0) Mean Corpuscular Volume 98 fL (79-100) Mean Corpuscular Hemoglobin 34 pg (25-35) Mean Corpuscular Hemoglobin Concent 35 g/dL (31-37) Red Cell Distribution Width 13.7 % (11.5-14.5) Platelet Count 152 x10^3/uL (140-400) Neutrophils (%) (Auto) 70 % (31-73) Lymphocytes (%) (Auto) 22 % (24-48) L Monocytes (%) (Auto) 5 % (0-9) Eosinophils (%) (Auto) 2 % (0-3) Basophils (%) (Auto) 1 % (0-3) Neutrophils # (Auto) 4.6 x10^3uL (1.8-7.7) Lymphocytes # (Auto) 1.4 x10^3/uL (1.0-4.8) Monocytes # (Auto) 0.3 x10^3/uL (0.0-1.1) Eosinophils # (Auto) 0.1 x10^3/uL (0.0-0.7) Basophils # (Auto) 0.0 x10^3/uL (0.0-0.2) Prothrombin Time 12.1 SEC (11.7-14.0) Prothrombin Time INR 0.9 (0.8-1.1) D-Dimer (Michelle) 0.87 ug/mlFEU (0.00-0.50) H Sodium Level 142 mmol/L (136-145) Potassium Level 3.5 mmol/L (3.5-5.1) Chloride Level 103 mmol/L (98-107) Carbon Dioxide Level 28 mmol/L (21-32) Anion Gap 11 (6-14) Blood Urea Nitrogen 12 mg/dL (7-20) Creatinine 1.0 mg/dL (0.6-1.0) Estimated GFR (Cockcroft-Gault) 54.8 BUN/Creatinine Ratio 12 (6-20) Glucose Level 170 mg/dL (70-99) H Calcium Level 9.3 mg/dL (8.5-10.1) Magnesium Level 2.1 mg/dL (1.8-2.4) Total Bilirubin 0.5 mg/dL (0.2-1.0) Aspartate Amino Transferase (AST) 17 U/L (15-37) Alanine Aminotransferase (ALT) 16 U/L (14-59) Alkaline Phosphatase 129 U/L (46-116) H Creatine Kinase 42 U/L (26-192) Creatine Kinase MB (Mass) 2.0 ng/mL (0.0-3.6) Creatine Kinase MB Relative Index % (0-4) Troponin I Quantitative < 0.017 ng/mL (0.000-0.055) DB-Glj-C-Type Natriuretic Peptide 2601 pg/mL (0-124) H Total Protein 8.0 g/dL (6.4-8.2) Albumin 4.4 g/dL (3.4-5.0) Albumin/Globulin Ratio 1.2 (1.0-1.7) Thyroid Stimulating Hormone (TSH) 0.586 uIU/mL (0.358-3.74) Urine Collection Type Unknown Urine Color Yellow Urine Clarity Clear Urine pH 6.5 Urine Specific [place] 1.010 Urine Protein Negative mg/dL (NEG-TRACE) Urine Glucose (UA) Negative mg/dL (NEG) Urine Ketones (Stick) Negative mg/dL (NEG) Urine Blood Small (NEG) Urine Nitrite Positive (NEG) Urine Bilirubin Negative (NEG) Urine Urobilinogen Dipstick 0.2 mg/dL (0.2 mg/dL) Urine Leukocyte Esterase Moderate (NEG) Urine RBC 1-2 /HPF (0-2) Urine WBC 20-40 /HPF (0-4) Urine Squamous Epithelial Cells Occ /LPF Urine Bacteria Many /HPF (0-FEW) Urine Opiates Screen Pos (NEG) Urine Methadone Screen Neg (NEG) Urine Barbiturates Neg (NEG) Urine Phencyclidine Screen Neg (NEG) Urine Amphetamine/Methamphetamine Neg (NEG) Urine Benzodiazepines Screen Pos (NEG) Urine Cocaine Screen Neg (NEG) Urine Cannabinoids Screen Neg (NEG) Urine Ethyl Alcohol Neg (NEG) Laboratory Tests 08/19/18 10:38 Laboratory Tests 08/19/18 10:38 EKG EKG Interpreted by Dr. Cardenas, sinus rhythm HR 84 no STEMI[] Radiology/Procedures Radiology/Procedures []PROCEDURE: PORTABLE CHEST 1V PORTABLE CHEST 1V History: CHEST PAIN. Comparison with May 19, 2018. The heart size is not enlarged. Aorta is tortuous and calcified, similar to prior. No pneumothorax or pleural effusion. No focal infiltrate is identified. Mild prominent interstitial opacities are unchanged. pilot submersible leads obscure small region of the right and left chest. Mild distention of the gastric air bubble IMPRESSION: No evidence of consolidating infiltrate. Electronically signed by: Vasquez Acosta MD (08/19/2018 10:48 AM) [facility] DICTATED and SIGNED BY: VASQUEZ ACOSTA MD DATE: 08/19/18 1048 PROCEDURE: CT ANGIOGRAPHY CHEST CT ANGIOGRAPHY CHEST Indication: Elevated d-dimer. Chest pain. . Technique: After intravenous contrast administration, CT imaging was performed of the chest. MIP reconstructions were obtained. Exposure: One or more of the following individualized dose reduction techniques were utilized for this examination: 1. Automated exposure control 2. Adjustment of the mA and/or kV according to patient size 3. Use of iterative reconstruction technique. Findings: Limited aortic exam due to bolus timing. The ascending aorta is ectatic, measuring 4.5 cm transverse diameter, similar to measurements on prior CTA chest on 03/14/2018. Aortic atherosclerotic calcification. No descending aortic aneurysm. The upper most aspect of an upper abdominal aortic aneurysm is partially seen, also appears similar to that prior exam. No evidence of a pulmonary embolism. Thyroid is symmetric. Small mediastinal lymph nodes are identified. Pretracheal node measures 8 mm short axis, similar to prior study. No pericardial effusion. Coronary artery calcifications. No significant pleural effusion. Lungs demonstrate no evidence of infiltrate or large mass. Trachea and mainstem bronchi are patent. There are mild emphysematous changes. Scans through the upper abdomen are limited by protocol. Probable upper most aspect of left renal cyst is seen. There is mild reflux of contrast into the inferior vena cava and hepatic veins as can be seen with right heart strain or heart failure. Mild degenerative changes of the spine. IMPRESSION: 1. No evidence of pulmonary embolism. 2. Ectasia of the ascending aorta, stable since prior study. 3. The upper most aspect of the infrarenal abdominal aortic aneurysm is identified, similar to prior study. 4. Reflux of contrast into the IVC and hepatic veins as can be seen with right heart strain or failure. Electronically signed by: Vasquez Acosta MD (08/19/2018 12:59 PM) [facility] DICTATED and SIGNED BY: VASQUEZ ACOSTA MD DATE: 08/19/18 9652 Course & Med Decision Making Course & Med Decision Making Pertinent Labs and Imaging studies reviewed. (See chart for details) This is a 72-year-old female patient presenting to the ED today complaining of chest pain that began an hour prior to coming to the ED, patient took nitroglycerin. Her pain is gone on arrival to the ED. CBC, CMP, troponin with no acute findings, d-dimer was 0.87, CTA chest was done , CT chest negative for any acute findings, noted for abdominal aneurysm, patient is aware, she states she's had it for a while. Urine analysis is noted for UTI. Patient was given Rocephin in the ED. When I went to give patient final results, she states she will walk away if we do not discharge her. She states she is "a walker from hospitals" Requested patient to wait until I talked to her PCP. I spoke with Dr. Vargas, she stated patient can be discharged if she makes an appointment with the product owner. Patient stated she will call the product owner today and follow- up. Follow-up numbers were given. She was discharged with cephalexin. Provided return precautions and discharged in stable condition. Dragon Disclaimer Dragon Disclaimer This electronic medical record was generated, in whole or in part, using a voice recognition dictation system. Departure Departure Impression: Primary Impression: Chest pain Additional Impression: UTI (urinary tract infection) Disposition: HOME, SELF-CARE Condition: STABLE Referrals: CONRAD HOLLOWAY MD (PCP) follow up as soon as you can VERNA GONGORA MD call his office today and set up a follow up appointment Patient Instructions: Chest Pain (Nonspecific), Urinary Tract Infection Additional Instructions: You have evaluated in the emergency room for chest pain, urine noted to have urinary tract infection. Please contact your product owner today and set up a follow-up appointment as soon as possible. Ensure you complete your antibiotics for urinary tract infection. Scripts Cephalexin (CEPHALEXIN) 500 Mg Tablet 1 TAB PO BID, #14 TAB Prov: TOYIN BERNSTEIN APRON TRIMMER 08/19/18 Problem Qualifiers Primary Impression: Chest pain Chest pain type: unspecified Qualified Codes: R07.9 - Chest pain, unspecified Additional Impression: UTI (urinary tract infection) Urinary tract infection type: site unspecified Hematuria presence: without hematuria Qualified Codes: N39.0 - Urinary tract infection, site not specified TOYIN BERNSTEIN APRON TRIMMER Aug 19, 2018 10:39
[2018-08-19] MEDS ORDERED: MORPHINE SULFATE 2 MG/ML VIAL. IV/SQ PRN (10:45)
[2018-08-19] MEDS ORDERED: NITROGLYCERIN SUBLINGUAL 0.4 MG BOTTLE OF 25. SL PRN (10:45)
[2018-08-19 10:48] LABS: BASO % 1 % (0-3); EOS # 0.1 x10^3/uL (0.0-0.7); EOS % 2 % (0-3); HEMOGLOBIN 15.6 g/dL (12.0-15.5); LYMPH # 1.4 x10^3/uL (1.0-4.8); LYMPH % 22 % (24-48); MEAN CORPUSCULAR HEMOGLOBIN 34 pg (25-35); MEAN CORPUSCULAR HGB CONC 35 g/dL (31-37); MEAN CORPUSCULAR VOLUME 98 fL (79-100); MONO # 0.3 x10^3/uL (0.0-1.1); MONO % 5 % (0-9); NEUT # 4.6 x10^3uL (1.8-7.7); NEUT % 70 % (31-73); PLATELET COUNT 152 x10^3/uL (140-400); RED CELL DISTRIBUTION WIDTH 13.7 % (11.5-14.5); WHITE BLOOD COUNT 6.5 x10^3/uL (4.0-11.0)
--- NOTE | 2018-08-19 10:51 | RAD ---
PORTABLE CHEST 1V History: CHEST PAIN. Comparison with May 19, 2018. The heart size is not enlarged. Aorta is tortuous and calcified, similar to prior. No pneumothorax or pleural effusion. No focal infiltrate is identified. Mild prominent interstitial opacities are unchanged. control integration engineer leads obscure small region of the right and left chest. Mild distention of the gastric air bubble IMPRESSION: No evidence of consolidating infiltrate. Electronically signed by: Vasquez Acosta MD (08/19/2018 10:48 AM) [email or web address]
[2018-08-19 11:01] LABS: CALCIUM 9.3 mg/dL (8.5-10.1); GFR 54.8; POTASSIUM 3.5 mmol/L (3.5-5.1)
[2018-08-19 11:02] LABS: PROTHROMBIN TIME PATIENT 12.1 SEC (11.7-14.0)
[2018-08-19 11:06] LABS: D-DIMER 0.87 ug/mlFEU (0.00-0.50)
[2018-08-19 11:09] LABS: ALBUMIN 4.4 g/dL (3.4-5.0); ALBUMIN/GLOBULIN RATIO 1.2 (1.0-1.7); MAGNESIUM 2.1 mg/dL (1.8-2.4); TOTAL BILIRUBIN 0.5 mg/dL (0.2-1.0)
[2018-08-19 11:15] LABS: CREATINE KINASE 42 U/L (26-192)
[2018-08-19] MEDS ORDERED: ASPIRIN 325 MG TABLET PO ONE (11:15)
[2018-08-19 11:37] LABS: BILIRUBIN,URINE NEGATIVE (NEG); CLARITY,URINE CLEAR; COLOR,URINE YELLOW; NITRITE,URINE POSITIVE (NEG); PH,URINE 6.5; PROTEIN,URINE NEGATIVE (NEG-TRACE); UROBILINOGEN,URINE 0.2 mg/dL (0.2 mg/dL)
[2018-08-19 11:44] LABS: BACTERIA,URINE MANY /HPF (0-FEW); SQUAMOUS EPITHELIAL CELL,UR OCC /LPF; WBC,URINE 20-40 /HPF (0-4)
[2018-08-19 11:46] LABS: BARBITURATES NEG (NEG); BENZODIAZEPINES POS (NEG); CANNABINOIDS NEG (NEG); COCAINE NEG (NEG); METHADONE NEG (NEG); OPIATES POS (NEG); PHENCYCLIDINE NEG (NEG)
[2018-08-19 11:47] LABS: AMPHETAMINE/METHAMPHETAMINE NEG (NEG)
[2018-08-19] MEDS ORDERED: IOHEXOL 350 MG/ML 100 ML VIAL. IV ONE (12:00)
--- NOTE | 2018-08-19 12:36 | EKG ---
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
[2018-08-19] MEDS ORDERED: cefTRIAXone IV Push 1 GM VIAL. IVP ONE (13:00)
--- NOTE | 2018-08-19 13:02 | RAD ---
CT ANGIOGRAPHY CHEST Indication: Elevated d-dimer. Chest pain. . Technique: After intravenous contrast administration, CT imaging was performed of the chest. MIP reconstructions were obtained. Exposure: One or more of the following individualized dose reduction techniques were utilized for this examination: 1. Automated exposure control 2. Adjustment of the mA and/or kV according to patient size 3. Use of iterative reconstruction technique. Findings: Limited aortic exam due to bolus timing. The ascending aorta is ectatic, measuring 4.5 cm transverse diameter, similar to measurements on prior CTA chest on 03/14/2018. Aortic atherosclerotic calcification. No descending aortic aneurysm. The upper most aspect of an upper abdominal aortic aneurysm is partially seen, also appears similar to that prior exam. No evidence of a pulmonary embolism. Thyroid is symmetric. Small mediastinal lymph nodes are identified. Pretracheal node measures 8 mm short axis, similar to prior study. No pericardial effusion. Coronary artery calcifications. No significant pleural effusion. Lungs demonstrate no evidence of infiltrate or large mass. Trachea and mainstem bronchi are patent. There are mild emphysematous changes. Scans through the upper abdomen are limited by protocol. Probable upper most aspect of left renal cyst is seen. There is mild reflux of contrast into the inferior vena cava and hepatic veins as can be seen with right heart strain or heart failure. Mild degenerative changes of the spine. IMPRESSION: 1. No evidence of pulmonary embolism. 2. Ectasia of the ascending aorta, stable since prior study. 3. The upper most aspect of the infrarenal abdominal aortic aneurysm is identified, similar to prior study. 4. Reflux of contrast into the IVC and hepatic veins as can be seen with right heart strain or failure. Electronically signed by: Vasquez Acosta MD (08/19/2018 12:59 PM) [facility]
[2018-08-19] MEDS ORDERED: CEPH500T PO (13:48)
[2018-08-19 13:59] VITALS: BP 105/64
--- NOTE | 2018-08-23 15:14 | VNOTE ---
CALL BACK NOTE CALL BACK Microbiology 08/19/18 Urine Culture - Final, Complete 08/19/18 Urine Culture Result 1 (GEORGETTE) - Final, Complete 08/19/18 Antimicrobic Susceptibility - Final, Complete Busy signal on September 02, 2018 at 1511. Patient needs Macrobid 100 mg tablets take 1 tablet twice a day 7 days dispense 14 tablets no refills. SELENA GODFREY Aug 23, 2018 15:14
== END 2018-08-19 14:02 | disposition home or self-care (01) ==
LOC: ER 10:20
DX: R07.89 Other chest pain (principal); N39.0 Urinary tract infection, site not specified; I10 Essential (primary) hypertension; F31.9 Bipolar disorder, unspecified; F41.9 Anxiety disorder, unspecified; F32.9 Major depressive disorder, single episode, unspecified; I25.10 Atherosclerotic heart disease of native coronary artery without angina pectoris; I25.2 Old myocardial infarction; Z95.1 Presence of aortocoronary bypass graft; Z88.5 Allergy status to narcotic agent; Z91.040 Latex allergy status
CPT/HCPCS: 36415; 71045; 71275; 80053; 80307; 81001; 82553; 83735; 83880; 84443; 84484; 85025; 85379; 85610; 87086; 87186; 93005; 96374; 99284; J0696; Q9967; 99283

== ENCOUNTER 2018-09-21 15:33 | Emergency (ER) | payer BC ==
[~2018-09-21] VITALS: Ht 165.1 cm; Wt 47.6 kg
[~2018-09-21 15:33] MED LIST changes: +CEPH500T PO
[2018-09-21] MEDS ORDERED: HYDROcodone/APAP 10/325 1 TAB TABLET PO ONE (16:30)
--- NOTE | 2018-09-21 17:14 | PHYS DOC ---
Past Medical History Past Medical History: Anxiety, Bipolar, CAD, Hypertension, [place], Other Additional Past Medical Histor: HERNIATED DISC, ANEURYSM(AAA), thoracic aneurysm Past Surgical History: Angioplasty, Appendectomy, Cholecystectomy, Coronary Bypass Surgery, Other Additional Past Surgical Histo: CARDIAC STENTS Alcohol Use: Occasionally Drug Use: None Adult General Chief Complaint Chief Complaint: MECHANICAL FALL HPI HPI Patient is a 72 year old female who brought in by EMS because of a fall. Patient states she had a fall forward tried to open a door with grabbing the door knob her balance and had a fall and landed on her right side. Patient denies loss of consciousness or head injury and complaining of pain in right elbow and lower back. Patient rated her pain 10 over 10 and asked for pain medication. Patient is not up-to-date with tetanus immunization but refused to get tetanus immunization. Patient has had frequent emergency room visits and drug-seeking behavior. Review of Systems Review of Systems Constitutional: Denies fever or chills [] Eyes: Denies change in visual acuity, redness, or eye pain [] HENT: Denies nasal congestion or sore throat [] Respiratory: Denies cough or shortness of breath [] Cardiovascular: No additional information not addressed in HPI [] GI: Denies abdominal pain, nausea, vomiting, bloody stools or diarrhea [] : Denies dysuria or hematuria [] Musculoskeletal: Reports back pain and joint pain Integument: Denies rash or skin lesions [] Neurologic: Denies headache, focal weakness or sensory changes [] Endocrine: Denies polyuria or polydipsia [] All other systems were reviewed and found to be within normal limits, except as documented in this note. Current Medications Current Medications Current Medications Medications (Trade) Dose Ordered Sig/[facility] Start Time Stop Time Status Last Admin Dose Admin Acetaminophen/ Hydrocodone Bitart (Lortab 10/325) 1 tab 1X ONCE 09/21/18 16:30 09/21/18 16:31 DC 09/21/18 16:30 1 TAB Allergies Allergies Allergies Coded Allergies Type Severity Reaction Last Updated Verified Latex, Natural Rubber Allergy Intermediate Itching 07/06/17 Yes hydromorphone Adverse Reaction Intermediate 03/12/18 Yes morphine Adverse Reaction Intermediate Nausea and Vomiting 03/12/18 Yes Physical Exam Physical Exam Constitutional: Well nourished, mild distress, non-toxic appearance, very anxious and agitated. [] HENT: Normocephalic, atraumatic. Eyes: PERRLA, EOMI, conjunctiva normal, no discharge. [] Neck: Normal range of motion, no tenderness, supple, no stridor. [] Cardiovascular:Heart rate regular rhythm, no murmur [] Lungs & Thorax: Bilateral breath sounds clear to auscultation [] Abdomen: Bowel sounds normal, soft, no tenderness, no masses, no pulsatile masses. [] Skin: Warm, dry, no erythema, no rash. [] Back: No midline tenderness, no sign of injury, no CVA tenderness. [] Extremities: 1 x 2 cm skin tear , no cyanosis, no clubbing, ROM intact, no edema. [] Neurologic: Alert and oriented X 3, normal motor function, normal sensory function, no focal deficits noted. [] Psychologic: Affect anxious, mood normal. [] Current Patient Data Vital Signs Vital Signs Date Time Temp Pulse Resp B/P (MAP) Pulse Ox O2 Delivery O2 Flow Rate FiO2 09/21/18 17:02 67 20 100 09/21/18 16:30 Room Air 09/21/18 16:03 98.6 164/77 (106) 98.0 98.6 EKG EKG [] Radiology/Procedures Radiology/Procedures [][facility] [address] [place], [place] [id number] IMAGING REPORT Signed PATIENT: TOÑO ROLLINS ACCOUNT: [id number] : 1945 LOCATION: ER AGE: 72 SEX: F EXAM STATUS: REG ER ORD. PHYSICIAN: HO MACKAY MD REASON: fall PROCEDURE: ELBOW RIGHT 3V EXAM: Pelvis and right hip, 2 views; right elbow, 3 views; lumbar spine, 3 views HISTORY: Pain. Fall. COMPARISON: None. FINDINGS: Pelvis and right hip: A frontal view of the pelvis and 2 views the right hip are obtained. There is no fracture, dislocation or subluxation. Lumbar spine: Frontal, lateral and coned sacral views of the lumbar spine are obtained. There is lumbar levoscoliosis centered at L3. There is a chronic appearing mild superior endplate compression deformity along the left aspect of L3 and L4. There is no significant listhesis. There is degenerative endplate remodeling with facet arthropathy predominantly at the lumbosacral junction. There is aortobiiliac atherosclerosis. Right elbow: 3 views of the right elbow are obtained. There is no fracture, dislocation or subluxation. There is no elbow effusion. IMPRESSION: 1. No acute osseous finding. 2. Mild chronic appearing superior endplate compression deformities at L3 and L4. 3. Lumbar levoscoliosis and multilevel degenerative change, primarily at the lumbosacral junction. Electronically signed by: Candie Tinsley MD (09/21/2018 5:45 PM) [facility] DICTATED and SIGNED BY: CANDIE TINSLEY MD DATE: 09/21/18 5848 Course & Med Decision Making Course & Med Decision Making Pertinent Labs and Imaging studies reviewed. (See chart for details) [] Dragon Disclaimer Dragon Disclaimer This electronic medical record was generated, in whole or in part, using a voice recognition dictation system. Departure Departure Impression: Primary Impression: Skin tear of elbow without complication Additional Impressions: Fall at home Acute lumbosacral myofascial strain Anxiety Disposition: HOME, SELF-CARE (1@1800) Condition: IMPROVED Referrals: CONRAD HOLLOWAY MD (PCP) Patient Instructions: Anxiety and Panic Attacks, Fall Prevention and Home Safety, Lumbosacral Strain, Skin Tear Care Additional Instructions: Drink plenty of liquids Follow-up with your primary care physician in 3-5 days Return to ER if not getting better Apply ice on the affected area Scripts [Percogesic] No Conflict Check 1 TAB PO QID PRN for PAIN, #14 Prov: HO MACKAY MD 09/21/18 Problem Qualifiers Primary Impression: Skin tear of elbow without complication Encounter type: initial encounter Laterality: right Qualified Codes: S51.011A - Laceration without foreign body of right elbow, initial encounter Additional Impressions: Fall at home Encounter type: subsequent encounter Qualified Codes: W19.XXXD - Unspecified fall, subsequent encounter; Y92.009 - Unspecified place in unspecified non-institutional (private) residence as the place of occurrence of the external cause Acute lumbosacral myofascial strain Encounter type: initial encounter Qualified Codes: S39.012A - Strain of muscle, fascia and tendon of lower back, initial encounter HO MACKAY MD September 21, 2018 17:14
--- NOTE | 2018-09-21 17:48 | RAD ---
EXAM: Pelvis and right hip, 2 views; right elbow, 3 views; lumbar spine, 3 views HISTORY: Pain. Fall. COMPARISON: None. FINDINGS: Pelvis and right hip: A frontal view of the pelvis and 2 views the right hip are obtained. There is no fracture, dislocation or subluxation. Lumbar spine: Frontal, lateral and coned sacral views of the lumbar spine are obtained. There is lumbar levoscoliosis centered at L3. There is a chronic appearing mild superior endplate compression deformity along the left aspect of L3 and L4. There is no significant listhesis. There is degenerative endplate remodeling with facet arthropathy predominantly at the lumbosacral junction. There is aortobiiliac atherosclerosis. Right elbow: 3 views of the right elbow are obtained. There is no fracture, dislocation or subluxation. There is no elbow effusion. IMPRESSION: 1. No acute osseous finding. 2. Mild chronic appearing superior endplate compression deformities at L3 and L4. 3. Lumbar levoscoliosis and multilevel degenerative change, primarily at the lumbosacral junction. Electronically signed by: Candie Vargas MD (09/21/2018 5:45 PM) [facility]
[2018-09-21 18:00] VITALS: BP 145/78
[2018-09-21] MEDS ORDERED: Percogesic PO (18:05)
== END 2018-09-21 18:36 | disposition home or self-care (01) ==
LOC: ER 15:33
DX: S51.011A Laceration without foreign body of right elbow, initial encounter (principal); F41.9 Anxiety disorder, unspecified; S39.012A Strain of muscle, fascia and tendon of lower back, initial encounter; F31.9 Bipolar disorder, unspecified; I10 Essential (primary) hypertension; I25.10 Atherosclerotic heart disease of native coronary artery without angina pectoris; I71.2 Thoracic aortic aneurysm, without rupture; I25.2 Old myocardial infarction; Z95.5 Presence of coronary angioplasty implant and graft; Z95.1 Presence of aortocoronary bypass graft; Z90.89 Acquired absence of other organs; Z90.49 Acquired absence of other specified parts of digestive tract; Z88.5 Allergy status to narcotic agent; Z91.040 Latex allergy status; W18.39XA Other fall on same level, initial encounter; Y93.89 Activity, other specified; Y92.89 Other specified places as the place of occurrence of the external cause; Y99.8 Other external cause status
CPT/HCPCS: 72100; 73080; 73502; 99284

== ENCOUNTER 2019-01-31 15:38 | Inpatient (IN) | payer BC ==
[~2019-01-31] VITALS: Ht 167.6 cm; Wt 52.4 kg
[~2019-01-31 15:38] MED LIST changes: +LIDO700A21 TD; -LIDO700A39 TD; +Percogesic PO
[2019-01-31 16:18] LABS: BASO % 1 % (0-3); EOS # 0.1 x10^3/uL (0.0-0.7); EOS % 1 % (0-3); HEMATOCRIT 43.1 % (36.0-47.0); HEMOGLOBIN 15.2 g/dL (12.0-15.5); LYMPH # 1.1 x10^3/uL (1.0-4.8); LYMPH % 19 % (24-48); MEAN CORPUSCULAR HEMOGLOBIN 34 pg (25-35); MEAN CORPUSCULAR HGB CONC 35 g/dL (31-37); MEAN CORPUSCULAR VOLUME 97 fL (79-100); MONO # 0.3 x10^3/uL (0.0-1.1); MONO % 5 % (0-9); NEUT # 4.4 x10^3/uL (1.8-7.7); NEUT % 75 % (31-73); PLATELET COUNT 140 x10^3/uL (140-400); RED BLOOD COUNT 4.46 x10^6/uL (3.50-5.40); RED CELL DISTRIBUTION WIDTH 14.1 % (11.5-14.5); WHITE BLOOD COUNT 5.8 x10^3/uL (4.0-11.0)
[2019-01-31 16:26] LABS: PROTHROMBIN TIME PATIENT 12.7 SEC (11.7-14.0)
[2019-01-31 16:33] LABS: CALCIUM 9.3 mg/dL (8.5-10.1); CREATININE 1.1 mg/dL (0.6-1.0); POTASSIUM 3.4 mmol/L (3.5-5.1)
[2019-01-31 16:39] LABS: ALBUMIN 3.9 g/dL (3.4-5.0); ALBUMIN/GLOBULIN RATIO 1.1 (1.0-1.7); MAGNESIUM 2.1 mg/dL (1.8-2.4); TOTAL BILIRUBIN 0.6 mg/dL (0.2-1.0); TOTAL PROTEIN 7.6 g/dL (6.4-8.2)
--- NOTE | 2019-01-31 16:40 | RAD ---
EXAM: CHEST 1 VIEW History: Chest pain COMPARISON: 08/19/2018 TECHNIQUE: Single portable radiograph of the chest FINDINGS: The cardiac silhouette is unremarkable. Mild prominent bilateral interstitial lung markings. The costophrenic sulci are clear and well demarcated. IMPRESSION: No radiographic evidence of an acute cardiopulmonary process. Electronically signed by: Gurjit Willingham MD (01/31/2019 4:36 PM) [id number]
[2019-01-31] MEDS ORDERED: HYDROcodone/APAP 5/325MG 1 TAB TABLET PO ONE (17:00)
[2019-01-31] MEDS ORDERED: NITROGLYCERIN SUBLINGUAL 0.4 MG BOTTLE OF 25. SL PRN (17:00)
--- NOTE | 2019-01-31 17:12 | PHYS DOC ---
Past Medical History Past Medical History: Anxiety, Bipolar, CAD, Hypertension, [place], Other Additional Past Medical Histor: HERNIATED DISC, ANEURYSM(AAA), thoracic aneurysm Past Surgical History: Angioplasty, Appendectomy, Cholecystectomy, Coronary Bypass Surgery, Other Additional Past Surgical Histo: CARDIAC STENTS Alcohol Use: Occasionally Drug Use: None Adult General Chief Complaint Chief Complaint: CHEST PAIN [facility] HPI Patient is a 73 year old female who presents via EMS with complaining of chest pain. Patient complaining of bilateral chest pain with radiation to bilateral shoulder and neck for about 2 hours prior to arrival as a constant Pressure pain with radiation to her back and associated with nausea without shortness of breath, palpitation, cough and dizziness. Patient rated her pain 10 over 10 and treated with aspirin and nitroglycerin �1 by EMS with resolving the pain. Patient states she has had episodes of chest pain for the last 2 weeks. Patient currently is possible pack daily and had history of CABG about 10 years ago. Review of Systems Review of Systems Constitutional: Denies fever or chills [] Eyes: Denies change in visual acuity, redness, or eye pain [] HENT: Denies nasal congestion or sore throat [] Respiratory: Denies cough or shortness of breath [] Cardiovascular: No additional information not addressed in HPI [] GI: Denies abdominal pain, vomiting, bloody stools or diarrhea, reports nausea [] : Denies dysuria or hematuria [] Musculoskeletal: Denies back pain or joint pain [] Integument: Denies rash or skin lesions [] Neurologic: Denies headache, focal weakness or sensory changes [] Endocrine: Denies polyuria or polydipsia [] All other systems were reviewed and found to be within normal limits, except as documented in this note. Current Medications Current Medications Current Medications Medications (Trade) Dose Ordered Sig/[facility] Start Time Stop Time Status Last Admin Dose Admin Acetaminophen/ Hydrocodone Bitart (Lortab 5/325) 1 tab 1X ONCE 01/31/19 17:00 01/31/19 17:01 DC 01/31/19 17:24 1 TAB Lorazepam (Ativan Inj) 0.5 mg 1X ONCE 01/31/19 18:00 01/31/19 18:01 Nitroglycerin (Nitrostat) 0.4 mg PRN Q5MIN PRN 01/31/19 17:00 01/31/19 16:55 0.4 MG Allergies Allergies Allergies Coded Allergies Type Severity Reaction Last Updated Verified Latex, Natural Rubber Allergy Intermediate Itching 07/06/17 Yes hydromorphone Adverse Reaction Intermediate 03/12/18 Yes morphine Adverse Reaction Intermediate Nausea and Vomiting 03/12/18 Yes Physical Exam Physical Exam Constitutional: Well developed, well nourished, mild distress, non-toxic appearance. [] HENT: Normocephalic, atraumatic. Eyes: PERRLA, EOMI, conjunctiva normal, no discharge. [] Neck: Normal range of motion, no tenderness, supple, no stridor. [] Cardiovascular:Heart rate regular rhythm, no murmur [] Lungs & Thorax: Bilateral breath sounds clear to auscultation [] Abdomen: Bowel sounds normal, soft, no tenderness, no masses, no pulsatile masses. [] Skin: Warm, dry, no erythema, no rash. [] Back: No tenderness, no CVA tenderness. [] Extremities: No tenderness, no cyanosis, no clubbing, ROM intact, no edema. [] Neurologic: Alert and oriented X 3, no focal deficits noted. [] Psychologic: Affect normal, judgement normal, mood normal. [] Current Patient Data Vital Signs Vital Signs Date Time Temp Pulse Resp B/P (MAP) Pulse Ox O2 Delivery O2 Flow Rate FiO2 01/31/19 17:24 20 Room Air 01/31/19 16:55 73 153/85 01/31/19 16:13 98 01/31/19 15:40 98.3 98.3 Lab Values Laboratory Tests Test 01/31/19 16:00 White Blood Count 5.8 x10^3/uL (4.0-11.0) Red Blood Count 4.46 x10^6/uL (3.50-5.40) Hemoglobin 15.2 g/dL (12.0-15.5) Hematocrit 43.1 % (36.0-47.0) Mean Corpuscular Volume 97 fL (79-100) Mean Corpuscular Hemoglobin 34 pg (25-35) Mean Corpuscular Hemoglobin Concent 35 g/dL (31-37) Red Cell Distribution Width 14.1 % (11.5-14.5) Platelet Count 140 x10^3/uL (140-400) Neutrophils (%) (Auto) 75 % (31-73) H Lymphocytes (%) (Auto) 19 % (24-48) L Monocytes (%) (Auto) 5 % (0-9) Eosinophils (%) (Auto) 1 % (0-3) Basophils (%) (Auto) 1 % (0-3) Neutrophils # (Auto) 4.4 x10^3/uL (1.8-7.7) Lymphocytes # (Auto) 1.1 x10^3/uL (1.0-4.8) Monocytes # (Auto) 0.3 x10^3/uL (0.0-1.1) Eosinophils # (Auto) 0.1 x10^3/uL (0.0-0.7) Basophils # (Auto) 0.0 x10^3/uL (0.0-0.2) Prothrombin Time 12.7 SEC (11.7-14.0) Prothrombin Time INR 1.0 (0.8-1.1) Sodium Level 147 mmol/L (136-145) H Potassium Level 3.4 mmol/L (3.5-5.1) L Chloride Level 108 mmol/L (98-107) H Carbon Dioxide Level 33 mmol/L (21-32) H Anion Gap 6 (6-14) Blood Urea Nitrogen 11 mg/dL (7-20) Creatinine 1.1 mg/dL (0.6-1.0) H Estimated GFR (Cockcroft-Gault) 49.0 BUN/Creatinine Ratio 10 (6-20) Glucose Level 161 mg/dL (70-99) H Calcium Level 9.3 mg/dL (8.5-10.1) Magnesium Level 2.1 mg/dL (1.8-2.4) Total Bilirubin 0.6 mg/dL (0.2-1.0) Aspartate Amino Transferase (AST) 14 U/L (15-37) L Alanine Aminotransferase (ALT) 16 U/L (14-59) Alkaline Phosphatase 115 U/L (46-116) Creatine Kinase 33 U/L (26-192) Troponin I Quantitative < 0.017 ng/mL (0.000-0.055) UW-Wpa-W-Type Natriuretic Peptide 2752 pg/mL (0-124) H Total Protein 7.6 g/dL (6.4-8.2) Albumin 3.9 g/dL (3.4-5.0) Albumin/Globulin Ratio 1.1 (1.0-1.7) Lipase 66 U/L (73-393) L Laboratory Tests 01/31/19 16:00 Laboratory Tests 01/31/19 16:00 EKG EKG EKG interpreted by me. EKG at 1546 showed normal sinus rhythm at rate of 72, ur ine abnormality, T-wave abnormality in lateral leads, no acute ST and T-wave elevation. Radiology/Procedures Radiology/Procedures [] [address] [place] [address] IMAGING REPORT Signed PATIENT: TOÑO ROLLINS SACCOUNT: [id number] : 1945 LOCATION: ER AGE: 73 SEX: F EXAM STATUS: REG ER ORD. PHYSICIAN: HO MACKAY MD REASON: chest pain, dizziness x1 week PROCEDURE: PORTABLE CHEST 1V EXAM: CHEST 1 VIEW History: Chest pain COMPARISON: 08/19/2018 TECHNIQUE: Single portable radiograph of the chest FINDINGS: The cardiac silhouette is unremarkable. Mild prominent bilateral interstitial lung markings. The costophrenic sulci are clear and well demarcated. IMPRESSION: No radiographic evidence of an acute cardiopulmonary process. Electronically signed by: Gurjit Willingham MD (01/31/2019 4:36 PM) [facility] DICTATED and SIGNED BY: GURJIT WILLINGHAM MD DATE: 01/31/19 1636 Course & Med Decision Making Course & Med Decision Making Pertinent Labs and Imaging studies reviewed. 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 Patient complaining of chest pain later on while she was in ER. Labs was unremarkable for mild hypernatremia and hyperchloremia and elevation of CO2. Patient had BNP of 2700. Patient had episode of chest pain for the last 3 weeks and did not have cardiac evaluation for a while.Patient requiring admission for further evaluation and treatment. Discussed with Dr. Alvarez who is in agreement with admission. Discussed findings and plan with patient and family, who acknowledge understanding and agreement. Dragon Disclaimer Dragon Disclaimer This electronic medical record was generated, in whole or in part, using a voice recognition dictation system. Departure Departure Impression: Primary Impression: Acute chest pain Additional Impressions: CHF (congestive heart failure) Hypernatremia Tobacco abuse Tobacco abuse counseling Disposition: ADMITTED INPATIENT Admitting Physician: Conrad Alvarez (accepted admission at 1736) Condition: IMPROVED Referrals: CONRAD ALVAREZ MD (PCP) The HEART Score for CP Pts HEART Score for Chest Pain: HEART Score for Chest Pain Response (Comments) Value History Moderately Suspicious 1 ECG Nonspecific Repolarizatio 1 Age > 65 2 Risk Factors >3 Risk Factors or Hx CAD 2 Troponin < Normal Limit 0 Total 6 Risk Factors: Risk Factors: DM, Current or recent (<one month) smoker, HTN, HLP, family history of CAD, obesity. Risk Scores: Score 0 - 3: 2.5% MACE over next 6 weeks - Discharge Home Score 4 - 6: 20.3% MACE over next 6 weeks - Admit for Clinical Observation Score 7 - 10: 72.7% MACE over next 6 weeks - Early Invasive Strategies Problem Qualifiers Additional Impressions: CHF (congestive heart failure) Heart failure type: unspecified Heart failure chronicity: unspecified Qualified Codes: I50.9 - Heart failure, unspecified HO MACKAY MD Jan 31, 2019 17:12
--- NOTE | 2019-01-31 19:09 | NUR ---
A 73 YO FEMALE ADMITTED TO [facility] WITH CHEST PAIN. PT GIVEN ADMISSION PACKET, ORIENTED/EXPLAINED POC, PT VERBALIZED UNDERSTANDING. DENIES PAIN AT THIS TIME, CALL LIGHT IN PLACE, WILL CONT TO MONITOR PT STATUS AND SAFETY. PMRN
[2019-01-31 19:15] VITALS: BP 135/73
--- NOTE | 2019-01-31 20:45 | EKG ---
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
--- NOTE | 2019-01-31 21:09 | NUR ---
pt verbalized she does not have an allergy to morphine, she said it makes her feel like she is drunk. pmrn
[2019-01-31] MEDS ORDERED: HYDROcodone/APAP 10/325 1 TAB TABLET PO PRN (21:15)
[2019-01-31] MEDS ORDERED: diphenhydrAMINE ORAL ELIXIR 12.5 MG/5 ML ML PO PRN (21:30)
[2019-01-31] MEDS ORDERED: ACETAMINOPHEN 325 MG TABLET. PO PRN (21:30)
--- NOTE | 2019-01-31 21:37 | NUR ---
Pt troponin 0.842 up from 0.017, pt denies chest pain at this time. Dr Alvarez notified no new orders at this time, will cont to monitor pt status and safety. call light in place. pmrn
[2019-01-31] MEDS: ALPRAZolam 1 MG TABLET PO PRN (22:10)
[2019-01-31 23:00] VITALS: BP 129/73
[2019-02-01 03:10] VITALS: BP 120/71
[2019-02-01 05:21] LABS: CHOLESTEROL/HDL RATIO 3.3
[2019-02-01 07:00] VITALS: BP 139/67
--- NOTE | 2019-02-01 08:55 | PDOC ---
Provider Note Provider Note dictated, declines cv consult/cath despite nstemi/troponin- will add imdur for now CONRAD HOLLOWAY MD Feb 01, 2019 08:55
[2019-02-01] MEDS: ASPIRIN CHEWABLE 81 MG TABLET. PO SCH (09:09)
[2019-02-01] MEDS: ALPRAZolam 1 MG TABLET PO PRN ×3 (09:10→21:43)
[2019-02-01] MEDS: LISINOPRIL 20 MG TABLET PO SCH (09:10)
[2019-02-01] MEDS: ISOSORBIDE MONONITRATE ER 30 MG TAB.ER.24H PO SCH (09:10)
[2019-02-01] MEDS: METOPROLOL SUCC 24HR ER 25 MG TAB.ER.24H. PO SCH (09:14)
--- NOTE | 2019-02-01 10:15 | HP ---
ADMIT DATE: 01/31/2019 CHIEF COMPLAINT: Chest pain. HISTORY OF PRESENT ILLNESS: A 73-year-old white female with known diffuse coronary artery disease, COPD and chronic tobacco abuse, came in with 3 weeks of chest pain, both exertional and at rest. Pain became more severe, pressure like and substernal with radiation to the neck and left shoulder on the day of admission. Troponin was initially normal, but since then has gone up to 1.2 without EKG changes. She has chest pain and at present does have a headache. She had a cardiac catheterization in May of this year per Dr. Parekh which revealed diffuse non-interventional coronary artery disease and metoprolol and aspirin was added and she declines to take a statin. She has not been seen in about 3 months in the office. She takes no other medications except Xanax and hydrocodone. ALLERGIES: No drug allergies are known. SOCIAL HISTORY: She is . She is still heavy smoker, nondrinker. Family situation is uncertain. FAMILY HISTORY: Unremarkable. REVIEW OF SYSTEMS: No other known problems. OBJECTIVE: ENT: Unremarkable. NECK: No masses, nodes or bruits. LUNGS: Clear with decreased breath sounds. CARDIOVASCULAR: Regular rate. Heart tones distant, rate is about 50. ABDOMEN: Soft, benign and nontender. There are soft bruits intraabdominally. EXTREMITIES: Decreased pedal pulses, 2-3+ clubbing. No active joint or skin lesions or edema. NEUROLOGIC: Physiologic, depressed, but oriented x 4, appropriate, responsive to questions. ASSESSMENT: Non-ST elevated myocardial infarction in the face of known coronary artery disease, chronic tobacco abuse, chronic obstructive pulmonary disease and chronic nonmalignant pain and depression. PLAN: She declines cardiac consultation or any cardiac intervention at this time. She wants to leave the hospital, but I convinced her to stay and start oral nitroglycerin as Imdur ____ her symptoms and further tobacco avoidance at this time would benefit her cardiac recovery. 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 CONRAD HOLLOWAY MD DR: ILAN/quentin JOB#: [id number] / [id number]
[2019-02-01 11:00] VITALS: BP 120/60
--- NOTE | 2019-02-01 11:26 | NUR ---
SS following for discharge planning. SS reviewed pt chart. Pt is from home with spouse and is currently on room air. No discharge needs noted at this time. SS will continue to follow for discharge planning.
[2019-02-01 15:00] VITALS: BP 118/67
[2019-02-01 18:48] VITALS: BP 123/63
[2019-02-01 23:16] VITALS: BP 130/65
[2019-02-02 03:15] VITALS: BP 122/70
[2019-02-02 07:00] VITALS: BP 146/78
--- NOTE | 2019-02-02 08:36 | PDOC ---
Provider Note Provider Note [id number] CONRAD HOLLOWAY MD Feb 02, 2019 08:36
--- NOTE | 2019-02-02 08:49 | DS ---
DATE OF DISCHARGE: 02/02/2019 HOSPITAL SUMMARY: A 73-year-old white female with end-stage COPD and tobacco use and known coronary artery disease, came in with chest pain, suspicious for recurrent unstable angina or [place]. Troponin initially was normal and then went up to 1.1 as the maximum with the rest of her labs being normal. There were no EKG changes present at first. Chest pain resolved with nitroglycerin in the ER and did not recur while in the hospital. Despite the knowledge of the myocardial injury, she declined Cardiology evaluation or intervention of any kind and so started oral Imdur 30 mg to add to aspirin and beta odalys therapy. She tolerated this well, is comfortable and having no further pain and wishes to be discharged and followed as an outpatient. At discharge, she again declined any Cardiology evaluation or intervention. FINAL DIAGNOSES: 1. Non-ST elevated myocardial infarction. 2. Coronary artery disease. 3. Chronic obstructive pulmonary disease and chronic tobacco abuse. OPERATIONS, PROCEDURES, COMPLICATIONS, CONSULTATIONS: None. DISPOSITION: Home meds remain the same. We will add Imdur 30 mg daily to her regimen with p.r.n. nitroglycerin. She is aware she can return to the hospital at any time if she has recurrent chest pain or decides she wants further evaluation that she has declined at this point. CONRAD HOLLOWAY MD DR: ILAN/nts JOB#: [id number] / [id number]
[2019-02-02] MEDS: ASPIRIN CHEWABLE 81 MG TABLET. PO SCH (09:16)
[2019-02-02] MEDS: ALPRAZolam 1 MG TABLET PO PRN (09:16)
[2019-02-02] MEDS: LISINOPRIL 20 MG TABLET PO SCH (09:18)
[2019-02-02] MEDS: ISOSORBIDE MONONITRATE ER 30 MG TAB.ER.24H PO SCH (09:18)
[2019-02-02 09:19] VITALS: BP 146/78
[2019-02-02] MEDS: METOPROLOL SUCC 24HR ER 25 MG TAB.ER.24H. PO SCH (09:19)
--- NOTE | 2019-02-02 10:51 | NUR ---
Discharge Note: TOÑO ROLLINS S2 DODGE Discharge instructions and discharge home medications reviewed with Patient and a copy given. All questions have been answered and understanding verbalized. The following instructions and handouts were given: CAD, CP, NSTEMI, and stop tobacco use. Discontinued iv lines and catheter intact. Patient discharged to home with self-care via private vehicle.
== END 2019-02-02 10:40 | disposition home or self-care (01) | DRG 281 ==
LOC: ER 15:38 → ED HOLD 18:13 → 2 NORTH 19:01
PROVIDERS: ADMIT Family Medicine; ATTEND Family Medicine
DX: I21.4 Non-ST elevation (NSTEMI) myocardial infarction (principal); E87.0 Hyperosmolality and hypernatremia; I11.0 Hypertensive heart disease with heart failure; F17.200 Nicotine dependence, unspecified, uncomplicated; F31.9 Bipolar disorder, unspecified; G89.29 Other chronic pain; F41.9 Anxiety disorder, unspecified; I25.10 Atherosclerotic heart disease of native coronary artery without angina pectoris; I50.9 Heart failure, unspecified; J44.9 Chronic obstructive pulmonary disease, unspecified; Z95.1 Presence of aortocoronary bypass graft; Z95.5 Presence of coronary angioplasty implant and graft; Z90.49 Acquired absence of other specified parts of digestive tract; Z71.6 Tobacco abuse counseling
CPT/HCPCS: 36415; 71045; 80053; 80061; 82550; 82962; 83690; 83735; 83880; 84484; 85025; 85610; 93005; 96374; J2060; 99285-25; G0378

== ENCOUNTER 2019-12-09 18:22 | Emergency (ER) | payer BC, MEDICARE ==
[~2019-12-09] VITALS: Ht 167.6 cm; Wt 58.8 kg
--- NOTE | 2019-12-09 18:36 | PHYS DOC ---
Past Medical History Past Medical History: Anxiety, Bipolar, CAD, Hypertension, [place], Other Additional Past Medical Histor: HERNIATED DISC, ANEURYSM(AAA), thoracic aneurysm Past Surgical History: Angioplasty, Appendectomy, Cholecystectomy, Coronary Bypass Surgery, Other Additional Past Surgical Histo: CARDIAC STENTS Smoking Status: Current Every Day Smoker Alcohol Use: Occasionally Drug Use: None General Adult EDM: Chief Complaint: CHEST PAIN HPI: HPI: Patient is a 73 year old female arrives via EMS complaining of chest pain, headache, shortness of breath. Patient states this is been going on for 4 days and is constant. Patient states she ran out of Xanax of which she been on for 40 years 4 days ago and that is when the symptoms started. Patient has a chronic cough. Patient says the chest pain is always there but intermittently worse with anxiety. Patient denies any fever or chills. Patient also complains of a frontal headache as well. Review of Systems: Review of Systems: Constitutional: Denies fever or chills. [] Eyes: Denies change in visual acuity. [] HENT: Denies nasal congestion or sore throat. [] Respiratory: Complains of chronic cough and shortness of breath Cardiovascular: Complains of intermittent chest pain GI: Complains of nausea but no vomiting no diarrhea : Denies dysuria. [] Musculoskeletal: Complains of back pain Integument: Denies rash. [] Neurologic: Complains of headache but no focal weakness or sensory changes. [] Endocrine: Denies polyuria or polydipsia. [] Lymphatic: Denies swollen glands. [] Psychiatric: Denies depression or anxiety. [] Heart Score: HEART Score for Chest Pain: HEART Score for Chest Pain Response (Comments) Value History Slighlty/Non-Suspicious 0 ECG Nonspecific Repolarizatio 1 Age > 65 2 Risk Factors >3 Risk Factors or Hx CAD 2 Total 5 Risk Factors: Risk Factors: DM, Current or recent (<one month) smoker, HTN, HLP, family history of CAD, obesity. Risk Scores: Score 0 - 3: 2.5% MACE over next 6 weeks - Discharge Home Score 4 - 6: 20.3% MACE over next 6 weeks - Admit for Clinical Observation Score 7 - 10: 72.7% MACE over next 6 weeks - Early Invasive Strategies Allergies: Allergies: Allergies Coded Allergies Type Severity Reaction Last Updated Verified Latex, Natural Rubber Allergy Intermediate Itching 2/19/18 Yes hydromorphone Adverse Reaction Intermediate 03/12/18 Yes morphine Adverse Reaction Intermediate Nausea and Vomiting 03/12/18 Yes Physical Exam: PE: Constitutional: Well developed, well nourished, no acute distress, non-toxic appearance. HENT: No trismus, external ears normal Eyes: Conjunctiva clear, EOMI Neck: Normal range of motion, no tenderness, supple, no stridor. 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 Psychologic: Anxious EKG: EKG: [] EKG interpreted by me normal sinus rhythm with rate of 71 right bundle branch block, left axis deviation LVH, nonspecific ST changes Radiology/Procedures: Radiology/Procedures: [][facility] [address] [place], [place] [id number] IMAGING REPORT Signed PATIENT: TOÑO ROLLINS SACCOUNT: [id number] : 1945 LOCATION: ER AGE: 73 SEX: F EXAM STATUS: REG ER ORD. PHYSICIAN: ANTONIO HOWARD MD REASON: cp PROCEDURE: PORTABLE CHEST 1V Examination: PORTABLE CHEST 1V History: Reason: cp / Spl. Instructions: / History: Comparison/Correlation: 01/31/2019 Portable Chest X-ray Exam Findings: Portable upright frontal view chest was obtained. Sternal wires and mediastinal clips are present. Heart size and pulmonary vascular are normal. No infiltrate or pleural effusion. No pneumothorax. Dextroconvex thoracic spine is present. Impression: No active disease. Electronically signed by: Etienne Sanchez MD (12/09/2019 7:57 PM) [facility] DICTATED and SIGNED BY: ETIENNE SANCHEZ MD DATE: 12/09/191956 Course & Med Decision Making: Course & Med Decision Making Pertinent Labs and Imaging studies reviewed. (See chart for details) [] Discussed with Dr. Holloway who agrees with plan to discharge home on Xanax make it through the weekend and follow-up in office next week. Patient with multiple system complaints. All seem to be related to being out of her Xanax. Work-up is reassuring. I understand that she has multiple comorbidities but I do not feel like she is having an aneurysm rupture, myocardial infarction, stroke or any acute process other than benzodiazepine withdrawal. I discussed the case with her primary care physician who agrees wit h the plan to give her short-term Xanax and follow-up in the office next week. Yang Disclaimer: Yang Disclaimer: This electronic medical record was generated, in whole or in part, using a voice recognition dictation system. Departure Departure Impression: Primary Impression: Benzodiazepine withdrawal Additional Impression: Chest pain Disposition: 01 HOME, SELF-CARE Condition: IMPROVED Referrals: CONRAD HOLLOWAY MD (PCP) 2-3 days Patient Instructions: Benzodiazepine Withdrawal Additional Instructions: EMERGENCY DEPARTMENT GENERAL DISCHARGE INSTRUCTIONS Thank you for coming to [facility] Emergency Department (ED) today and trusting us with you care. We trust that you had a positivie experience in our Emergency Department. If you wish to speak to the department management, you may call the Director at [phone]. YOUR FOLLOW UP INSTRUCTIONS ARE FOLLOWS: 1. Do you have a private Doctor? If you do not have a private doctor, please ask for a resource list of physicians or clinics that may be able to assist you with follow up care. 2. The Emergency Physicain has interpreted your x-rays. The X-Ray specialist will also review them. If there is a change in the findings, you will be notified in 48 hours when at all possible. 3. A lab test or culture has been done, your results will be reviewed and you will be notified if you need a change in treatment. ADDITIONAL INSTRUCTIONS AND INFORMATION: 1. Your care today has been supervised by a physician who is specially trained in emergency care. Many problems require more than one evaluation for a complete diagnosis and treatment. We recommend that you schedule your follow up appointment as recommended to ensure complete treatment of you illness or injury. If you are unable to obtain follow up care and continue to have a problem, or if your consition worsens, we recommend that you return to the ED. 2. We are not able to safely determine your condition over the phone nor are we able to give sound medical advice over the phone. For these safety reasons, if you call for medical advice we will ask you to come to the ED for further evaluation. 3. If you have any questions regarding these discharge instructions please call the ED at [phone]. SAFETY INFORMATION: In the interest of safety, wellness, and injury prevention; we encourage you to wear your sealbelt, if you smoke; quite smoking, and we encourage family to use a protective helmet for bicycling and other sporting events that present an increased risk for head injury. IF YOUR SYMPTOMS WORSEN OR NEW SYMPTOMS DEVELOP, OR YOU HAVE CONCERNS ABOUT YOUR CONDITION; OR IF YOUR CONDITION WORSENS WHILE YOU ARE WAITING FOR YOUR FOLLOW UP APPOINTMENT; EITHER CONTACT YOUR PRIMARY CARE DOCTOR, THE PHYSICIAN WHOSE NAME AND NUMBER YOU WERE GIVEN, OR RETURN TO THE ED IMMEDIATELY. Scripts Alprazolam (XANAX) 1 Mg Tablet 1 TAB PO BID for anxiety, #8 TAB Prov: ANTONIO HOWARD MD 12/09/19 Justicifation of Admission Dx: Justifications for Admission: Justification of Admission Dx: N/A ANTONIO HOWARD MD Dec 09, 2019 18:36
[2019-12-09 18:47] LABS: BASO # 0.1 x10^3/uL (0.0-0.2); BASO % 1 % (0-3); EOS % 0 % (0-3); HEMATOCRIT 42.8 % (36.0-47.0); HEMOGLOBIN 14.9 g/dL (12.0-15.5); LYMPH # 2.5 x10^3/uL (1.0-4.8); LYMPH % 22 % (24-48); MEAN CORPUSCULAR HEMOGLOBIN 33 pg (25-35); MEAN CORPUSCULAR HGB CONC 35 g/dL (31-37); MEAN CORPUSCULAR VOLUME 94 fL (79-100); MONO # 0.8 x10^3/uL (0.0-1.1); MONO % 7 % (0-9); NEUT # 7.7 x10^3/uL (1.8-7.7); NEUT % 70 % (31-73); PLATELET COUNT 216 x10^3/uL (140-400); RED BLOOD COUNT 4.56 x10^6/uL (3.50-5.40); RED CELL DISTRIBUTION WIDTH 13.5 % (11.5-14.5)
[2019-12-09 18:53] LABS: CALCIUM 8.9 mg/dL (8.5-10.1); CREATININE 0.9 mg/dL (0.6-1.0); GFR 61.7; POTASSIUM 3.4 mmol/L (3.5-5.1)
[2019-12-09 18:58] LABS: ALBUMIN 3.9 g/dL (3.4-5.0); TOTAL BILIRUBIN 0.8 mg/dL (0.2-1.0); TOTAL PROTEIN 7.7 g/dL (6.4-8.2)
--- NOTE | 2019-12-09 19:59 | RAD ---
Examination: PORTABLE CHEST 1V History: Reason: cp / Spl. Instructions: / History: Comparison/Correlation: 01/31/2019 Portable Chest X-ray Exam Findings: Portable upright frontal view chest was obtained. Sternal wires and mediastinal clips are present. Heart size and pulmonary vascular are normal. No infiltrate or pleural effusion. No pneumothorax. Dextroconvex thoracic spine is present. Impression: No active disease. Electronically signed by: Etienne Fischer MD (12/09/2019 7:57 PM) [id number]
[2019-12-09] MEDS ORDERED: ALPR1TAB2 PO (20:26)
[2019-12-09] MEDS: ACETAMINOPHEN 500 MG TABLET PO ONE ×2 (20:38→20:44)
[2019-12-09] MEDS: ASPIRIN CHEWABLE 81 MG TABLET. PO ONE ×2 (20:39→20:43)
[2019-12-09 20:45] VITALS: BP 152/94
--- NOTE | 2019-12-12 11:12 | EKG ---
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
== END 2019-12-09 20:51 | disposition home or self-care (01) ==
LOC: ER 18:22
DX: F13.239 Sedative, hypnotic or anxiolytic dependence with withdrawal, unspecified (principal); R07.89 Other chest pain; R51 Headache; R06.02 Shortness of breath; I45.10 Unspecified right bundle-branch block; F31.9 Bipolar disorder, unspecified; F41.9 Anxiety disorder, unspecified; I10 Essential (primary) hypertension; F17.200 Nicotine dependence, unspecified, uncomplicated; I25.10 Atherosclerotic heart disease of native coronary artery without angina pectoris; Z95.5 Presence of coronary angioplasty implant and graft; Z90.89 Acquired absence of other organs; Z90.49 Acquired absence of other specified parts of digestive tract; Z95.1 Presence of aortocoronary bypass graft; Z91.040 Latex allergy status; Z88.5 Allergy status to narcotic agent
CPT/HCPCS: 36415; 71045; 80053; 83735; 83880; 84484; 85025; 96374; 99285; J2060; 93005

== ENCOUNTER 2020-01-04 00:32 | Inpatient (IN) | payer MEDICARE ==
[~2020-01-04] VITALS: Ht 167.6 cm; Wt 60.7 kg
[2020-01-04] MEDS ORDERED: ATOR20TA58 PO (05:52)
[2020-01-04] MEDS ORDERED: HYDR-2765 PO (05:52)
[2020-01-04] MEDS ORDERED: ISOS60TA2 PO (05:52)
[2020-01-04 07:00] VITALS: BP 145/74
[2020-01-04] MEDS ORDERED: HYDROcodone/APAP 7.5/325MG 1 TAB TABLET PO PRN (08:30)
[2020-01-04] MEDS ORDERED: ALPRAZolam 1 MG TABLET PO PRN (08:30)
--- NOTE | 2020-01-04 08:47 | HP ---
ADMIT DATE: 01/04/2020 CHIEF COMPLAINT: Chest pain. HISTORY OF PRESENT ILLNESS: A 74-year-old white female who has a history of end-stage COPD, continued tobacco abuse and diffuse coronary artery disease. She has declined cardiac interventions in the past, came in with right-sided chest pain to the neck and jaw. She is not sure if she has been on her regular medications or not at this point. Troponin was mildly elevated at 0.11 and she had no further chest pain since admission. She describes no exertional component, but is generally short of breath with exercise. PAST MEDICAL HISTORY: ALLERGIES: Noted. MEDICATIONS: She takes oxycodone and hydrocodone chronically for chronic nonmalignant pain. Other meds remain the same. SOCIAL HISTORY: Still a smoker. She is . Nondrinker. Physically active. FAMILY HISTORY: Unremarkable. REVIEW OF SYSTEMS: No other problems. OBJECTIVE: ENT: Edentulous with dentures in place. NECK: No bruits, masses or nodes. LUNGS: Decreased breath sounds. No wheezing or tachypnea. CARDIOVASCULAR: Regular rate. No murmur. ABDOMEN: Benign. EXTREMITIES: Reduced pedal pulses, 2+ clubbing. No joint or skin lesions or edema. NEUROLOGIC: Physiologic. ASSESSMENT: Recurrent chest pain, likely anginal in nature with the patient with diffuse coronary artery disease, end-stage chronic obstructive pulmonary disease, chronic tobacco abuse and chronic nonmalignant pain. PLAN: DNR at her request. Resume home meds. Comfort care measures. She declines cardiac consultation or intervention at this time. CONRAD HOLLOWAY MD DR: ILAN/quentin JOB#: [id number] / [id number]
[2020-01-04] MEDS ORDERED: ASPIRIN CHEWABLE 81 MG TABLET. PO SCH (09:00)
[2020-01-04] MEDS ORDERED: LISINOPRIL 20 MG TABLET PO SCH (09:00)
[2020-01-04] MEDS ORDERED: ISOSORBIDE MONONITRATE ER 30 MG TAB.ER.24H PO SCH (09:00)
[2020-01-04] MEDS ORDERED: METOPROLOL SUCC 24HR ER 25 MG TAB.ER.24H. PO SCH (09:00)
[2020-01-04 09:25] VITALS: BP 145/74
[2020-01-04 10:08] LABS: CHOLESTEROL/HDL RATIO 3.1
--- NOTE | 2020-01-04 10:11 | NUR ---
Pt discharged home with self care. Discharge instructions discussed. Pt already has a follow up scheduled 01/16. IV's removed. Pt ambulated to main entrance with RN.
[2020-01-04 10:21] LABS: PROTHROMBIN TIME PATIENT 11.9 SEC (11.7-14.0)
--- NOTE | 2020-01-04 10:21 | RAD ---
EXAM: CHEST 2 VIEWS. HISTORY: Chest pain. COMPARISON: 12/09/2019. FINDINGS: Frontal and lateral views of the chest are obtained. There are changes of coronary artery bypass grafting. There are no confluent infiltrates. There is no pneumothorax or pleural effusion. The heart is not enlarged. Cholecystectomy clips are noted. The aorta is calcified and tortuous. IMPRESSION: 1. No confluent infiltrates. Electronically signed by: Caden Garcia MD (01/04/2020 10:18 AM) [id number]
[2020-01-04 10:49] LABS: ALBUMIN 3.3 g/dL (3.4-5.0); CALCIUM 8.5 mg/dL (8.5-10.1); DIRECT BILIRUBIN 0.1 mg/dL (0.0-0.2); GFR 54.5; POTASSIUM 4.2 mmol/L (3.5-5.1); TOTAL BILIRUBIN 0.4 mg/dL (0.2-1.0); TOTAL PROTEIN 6.7 g/dL (6.4-8.2)
[2020-01-04 11:36] LABS: BASO % 1 % (0-3); EOS # 0.2 x10^3/uL (0.0-0.7); EOS % 3 % (0-3); HEMATOCRIT 41.4 % (36.0-47.0); HEMOGLOBIN 14.3 g/dL (12.0-15.5); LYMPH # 2.1 x10^3/uL (1.0-4.8); LYMPH % 30 % (24-48); MEAN CORPUSCULAR HEMOGLOBIN 33 pg (25-35); MEAN CORPUSCULAR HGB CONC 35 g/dL (31-37); MEAN CORPUSCULAR VOLUME 96 fL (79-100); MONO # 0.5 x10^3/uL (0.0-1.1); MONO % 7 % (0-9); NEUT % 59 % (31-73); PLATELET COUNT 164 x10^3/uL (140-400); RED BLOOD COUNT 4.31 x10^6/uL (3.50-5.40); RED CELL DISTRIBUTION WIDTH 13.8 % (11.5-14.5); WHITE BLOOD COUNT 6.8 x10^3/uL (4.0-11.0)
[2020-01-04 11:37] LABS: BILIRUBIN,URINE NEGATIVE (NEG); CLARITY,URINE CLEAR; COLOR,URINE YELLOW
[2020-01-04 11:38] LABS: BACTERIA,URINE 0 /HPF (0-FEW); NITRITE,URINE NEGATIVE (NEG); PROTEIN,URINE NEGATIVE (NEG-TRACE); RBC,URINE OCC /HPF (0-2); SQUAMOUS EPITHELIAL CELL,UR FEW /LPF; UROBILINOGEN,URINE 0.2 mg/dL (0.2 mg/dL)
--- NOTE | 2020-01-04 11:44 | EKG ---
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
[2020-01-04] MEDS ORDERED: ATORVASTATIN CALCIUM 20 MG TABLET PO SCH (21:00)
== END 2020-01-04 10:32 | disposition home or self-care (01) | DRG 303 ==
LOC: ER 00:32 → 2 SOUTH 04:42
PROVIDERS: ADMIT Internal Medicine; ATTEND Internal Medicine
DX: I25.119 Atherosclerotic heart disease of native coronary artery with unspecified angina pectoris (principal); G89.29 Other chronic pain; J44.9 Chronic obstructive pulmonary disease, unspecified; F17.200 Nicotine dependence, unspecified, uncomplicated; Z66 Do not resuscitate; Z88.5 Allergy status to narcotic agent; Z88.8 Allergy status to other drugs, medicaments and biological substances; Z91.040 Latex allergy status
CPT/HCPCS: 36415; 71046; 80048; 80061; 80076; 81001; 83880; 84484; 85025; 85610; 85730; 87086; 93005; 99285-25; G0378

== ENCOUNTER 2020-01-17 20:26 | Observation (INO) | payer MEDICARE ==
[~2020-01-17] VITALS: Ht 165.1 cm; Wt 59.0 kg
[~2020-01-17 20:26] MED LIST changes: +ATOR20TA58 PO; +HYDR-2765 PO; +ISOS60TA2 PO
[2020-01-17 20:53] LABS: BASO # 0.1 x10^3/uL (0.0-0.2); BASO % 1 % (0-3); EOS # 0.2 x10^3/uL (0.0-0.7); EOS % 2 % (0-3); HEMATOCRIT 41.7 % (36.0-47.0); HEMOGLOBIN 14.5 g/dL (12.0-15.5); LYMPH # 2.8 x10^3/uL (1.0-4.8); LYMPH % 33 % (24-48); MEAN CORPUSCULAR HEMOGLOBIN 33 pg (25-35); MEAN CORPUSCULAR HGB CONC 35 g/dL (31-37); MEAN CORPUSCULAR VOLUME 95 fL (79-100); MONO # 0.6 x10^3/uL (0.0-1.1); MONO % 7 % (0-9); NEUT # 4.8 x10^3/uL (1.8-7.7); NEUT % 57 % (31-73); PLATELET COUNT 150 x10^3/uL (140-400); RED BLOOD COUNT 4.38 x10^6/uL (3.50-5.40); RED CELL DISTRIBUTION WIDTH 13.6 % (11.5-14.5); WHITE BLOOD COUNT 8.3 x10^3/uL (4.0-11.0)
[2020-01-17 21:35] LABS: CALCIUM 8.6 mg/dL (8.5-10.1); CREATININE 1.3 mg/dL (0.6-1.0); GFR 40.3; POTASSIUM 3.6 mmol/L (3.5-5.1)
[2020-01-17 21:39] LABS: ALBUMIN 3.4 g/dL (3.4-5.0); MAGNESIUM 2.1 mg/dL (1.8-2.4); TOTAL BILIRUBIN 0.3 mg/dL (0.2-1.0); TOTAL PROTEIN 6.7 g/dL (6.4-8.2)
[2020-01-17 21:44] LABS: CREATINE KINASE 47 U/L (26-192)
--- NOTE | 2020-01-17 21:47 | PHYS DOC ---
Past Medical History Past Medical History: Anxiety, Bipolar, CAD, Hypertension, [place], Other Additional Past Medical Histor: HERNIATED DISC, ANEURYSM(AAA), thoracic aneurysm, claudication Past Surgical History: Angioplasty, Appendectomy, Cholecystectomy, Coronary Bypass Surgery, Other Additional Past Surgical Histo: CARDIAC STENTS Smoking Status: Current Every Day Smoker Alcohol Use: Occasionally Drug Use: None General Adult EDM: Chief Complaint: CHEST PAIN HPI: HPI: Mrs. Melvin is a 74-year-old white female with a 3-1/2-hour history of chest pain. Patient reports developing chest pain at approximately 6 PM today, she describes it as retrosternal and "crushing" and "sharp" in nature. Pain radiates to both arms, but does not radiate to her neck. She describes the pain as a 10 out of 10 today however this pain slowly faded by the time of her p resentation. The patient did take 1 nitroglycerin today and one adult sized aspirin, he reports his nitro was not helping. She denies any nausea or vomiting with this episode. Patient does have an extensive past medical history of coronary disease. Review of Systems: Review of Systems: Constitutional: Denies fever or chills Eyes: Denies redness or eye pain HENT: Denies nasal congestion or sore throat Respiratory: Denies cough or shortness of breath Cardiovascular: Reports chest pain patient did have shortness of breath with this episode. GI: Denies abdominal pain, nausea, or vomiting : Denies dysuria or hematuria Musculoskeletal: Denies back pain or joint pain Integument: Denies rash or skin lesions Neurologic: Denies headache, focal weakness or sensory changes Complete systems were reviewed and found to be within normal limits, except as documented in this note. Heart Score: HEART Score for Chest Pain: HEART Score for Chest Pain Response (Comments) Value History Moderately Suspicious 1 ECG Normal 0 Age > 65 2 Risk Factors >3 Risk Factors or Hx CAD 2 Troponin < Normal Limit 0 Total 5 Risk Factors: Risk Factors: Hypertension, family history. Risk Scores: Score 0 - 3: 2.5% MACE over next 6 weeks - Discharge Home Score 4 - 6: 20.3% MACE over next 6 weeks - Admit for Clinical Observation Score 7 - 10: 72.7% MACE over next 6 weeks - Early Invasive Strategies Family History: Family History: Mother: Drug overdose. Father: [place] Older brother: from [place]. 2 sisters: Healthy Children: Healthy Current Medications: Current Medications Medications (Trade) Dose Ordered Sig/Amari Start Time Stop Time Status Last Admin Dose Admin Sodium Chloride 1,000 ml @ 1,000 mls/hr 1X ONCE 01/17/20 22:00 01/17/20 22:59 Home Meds: Xanax, lisinopril, hydrochlorothiazide, nitroglycerin Allergies: Allergies: Allergies Coded Allergies Type Severity Reaction Last Updated Verified Latex, Natural Rubber Allergy Intermediate Itching 07/06/17 Yes hydromorphone Adverse Reaction Intermediate 03/12/18 Yes morphine Adverse Reaction Intermediate Nausea and Vomiting 03/12/18 Yes Physical Exam: PE: Constitutional: Well developed, well nourished, no acute distress, non-toxic appearance HENT: Normocephalic, atraumatic. Cranial nerves II through XII grossly intact bilaterally. No cholesteatoma was present on the face. Eyes: Conjunctiva normal, no discharge Neck: Normal range of motion, no tenderness, supple. No carotid bruits present. Lungs & Thorax: Bilateral breath sounds clear to auscultation, no wheezing. Well-healed surgical scar from apparent thoracotomy. Heart: Regular rate and rhythm, 1+ systolic murmur best heard at the left sternal border. S1 and S2 normal. S3 and S4 absent. Abdomen: Soft, no tenderness Skin: Warm, dry, no erythema, no rash Back: No tenderness, no CVA tenderness Extremities: No tenderness, ROM intact, no edema. 2+4 radial pulse. 1+4 dorsalis pedis and posterior tibial pulse. Neurologic: Alert and oriented X 3, normal motor function, normal sensory function, no focal deficits noted Psychologic: Affect normal, judgment normal Current Patient Data: Labs: Laboratory Tests Test 01/17/20 20:43 White Blood Count 8.3 x10^3/uL (4.0-11.0) Red Blood Count 4.38 x10^6/uL (3.50-5.40) Hemoglobin 14.5 g/dL (12.0-15.5) Hematocrit 41.7 % (36.0-47.0) Mean Corpuscular Volume 95 fL (79-100) Mean Corpuscular Hemoglobin 33 pg (25-35) Mean Corpuscular Hemoglobin Concent 35 g/dL (31-37) Red Cell Distribution Width 13.6 % (11.5-14.5) Platelet Count 150 x10^3/uL (140-400) Neutrophils (%) (Auto) 57 % (31-73) Lymphocytes (%) (Auto) 33 % (24-48) Monocytes (%) (Auto) 7 % (0-9) Eosinophils (%) (Auto) 2 % (0-3) Basophils (%) (Auto) 1 % (0-3) Neutrophils # (Auto) 4.8 x10^3/uL (1.8-7.7) Lymphocytes # (Auto) 2.8 x10^3/uL (1.0-4.8) Monocytes # (Auto) 0.6 x10^3/uL (0.0-1.1) Eosinophils # (Auto) 0.2 x10^3/uL (0.0-0.7) Basophils # (Auto) 0.1 x10^3/uL (0.0-0.2) Activated Partial Thromboplast Time 27 SEC (24-38) Laboratory Tests 01/17/20 20:43 Vital Signs: Vital Signs Date Time Temp Pulse Resp B/P (MAP) Pulse Ox O2 Delivery O2 Flow Rate FiO2 01/17/20 20:50 97.5 79 16 126/77 (93) 96 Room Air 97.5 EKG: EKG: FL:105ms QRS: 102MS QT: 396MS QTC:445: Normal sinus rhythm with left ventricular hypertrophy. Negative for any ST segment changes. No EKG from the past to compare for comparison. Radiology/Procedures: Radiology/Procedures: PROCEDURE: PORTABLE CHEST 1V Exam: Chest one view INDICATION: Chest pain TECHNIQUE: Frontal view of the chest Comparisons: None FINDINGS: Sternotomy wires are noted. The cardiomediastinal silhouette and pulmonary vessels are within normal limits. The lung and pleural spaces are clear. IMPRESSION: No acute pulmonary process. Electronically signed by: Florian Corbett MD (01/17/2020 10:27 PM) [id number] Course & Med Decision Making: Course & Med Decision Making 74-year-old white female with significant cardiac history presents with report of chest pain. EKG stable. Labs obtained and posted to chart. Troponin within normal limits. D-dimer significantly elevated. Unable to perform CT angios secondary to patient's renal dysfunction. VQ scan pending. PE less likely. HEART score 5. Patient requiring observation admission for further evaluation and treatment. Discussed with Dr. Holloway (PCP) who is in agreement with admission. Discussed findings and plan with patient, who acknowledges understanding and agreement. Yang Disclaimer: Yang Disclaimer: This electronic medical record was generated, in whole or in part, using a voice recognition dictation system. Departure Departure Impression: Primary Impression: Chest pain Qualified Codes: R07.9 - Chest pain, unspecified Additional Impression: Elevated d-dimer Disposition: ADMITTED INPATIENT Admitting Physician: Conrad Holloway Condition: STABLE Referrals: CONRAD HOLLOWAY MD (PCP) Justicifation of Admission Dx: Justifications for Admission: Justification of Admission Dx: Yes Comments: Chest pain, elevated d-dimer RUFINA DIAZ DO Jan 17, 2020 21:47
[2020-01-17] MEDS: fentaNYL PF VIAL 100 MCG/2 ML VIAL IV ONE (22:00)
[2020-01-17] MEDS ORDERED: NITROGLYCERIN OINT 1 GM PACKET. TP ONE (22:00)
[2020-01-17] MEDS ORDERED: IV NORMAL SALINE 1000ML BAG 1,000 ML IV ONE (22:00)
[2020-01-17] MEDS ORDERED: ONDANSETRON PF 4 MG/2 ML VIAL. IV PRN (22:30)
[2020-01-17] MEDS ORDERED: fentaNYL PF VIAL 100 MCG/2 ML VIAL IV PRN (22:30)
--- NOTE | 2020-01-17 22:30 | RAD ---
Exam: Chest one view INDICATION: Chest pain TECHNIQUE: Frontal view of the chest Comparisons: None FINDINGS: Sternotomy wires are noted. The cardiomediastinal silhouette and pulmonary vessels are within normal limits. The lung and pleural spaces are clear. IMPRESSION: No acute pulmonary process. Electronically signed by: Florian Corbett MD (01/17/2020 10:27 PM) [id number]
[2020-01-18] MEDS: fentaNYL PF VIAL 100 MCG/2 ML VIAL IV ONE (00:28)
[2020-01-18 02:49] VITALS: BP 132/68
[2020-01-18 03:25] LABS: CHOLESTEROL/HDL RATIO 3.4
[2020-01-18 07:00] VITALS: BP 126/80
--- NOTE | 2020-01-18 07:30 | EKG ---
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
[2020-01-18] MEDS ORDERED: ALPRAZolam 1 MG TABLET PO PRN (08:30)
[2020-01-18] MEDS ORDERED: HYDROcodone/APAP 7.5/325MG 1 TAB TABLET PO PRN (08:30)
--- NOTE | 2020-01-18 08:40 | PDOC ---
Provider Note Date of Service: DATE: 01/18/20 TIME: 08:39 Provider Note [id number] Justifications for Admission Other Justification CONRAD HOLLOWAY MD Jan 18, 2020 08:40
--- NOTE | 2020-01-18 08:56 | SSS ---
ADMIT DATE: 01/18/2020 HOSPITAL SUMMARY: A 74-year-old white female with known inoperable diffuse coronary artery disease, COPD, chronic tobacco abuse and chronic nonmalignant pain and came in with typical angina. She did not have sublingual nitroglycerin at home and was given this in the ER and pain has since resolved and she wishes to be discharged. Laboratory studies were unremarkable. BNP is chronically elevated at 1700. Troponin was unremarkable as well. ASSESSMENT: Chest pain secondary to coronary artery disease. OPERATIONS, PROCEDURES, COMPLICATIONS AND CONSULTATIONS: None. DISPOSITION: All home meds remain the same. She continues her oral time release nitrate and will get the sublingual nitroglycerin to use p.r.n. as well. Prognosis is poor because of multiple medical problems and inoperable diffuse coronary disease and chronic tobacco abuse. CONRAD HOLLOWAY MD DR: ILAN/quentin JOB#: [id number] / [id number]
[2020-01-18] MEDS ORDERED: ISOSORBIDE MONONITRATE ER 30 MG TAB.ER.24H PO SCH (09:00)
[2020-01-18] MEDS ORDERED: ASPIRIN CHEWABLE 81 MG TABLET. PO SCH (09:00)
[2020-01-18] MEDS ORDERED: LISINOPRIL 20 MG TABLET PO SCH (09:00)
[2020-01-18] MEDS ORDERED: METOPROLOL SUCC 24HR ER 25 MG TAB.ER.24H. PO SCH (09:00)
[2020-01-18 09:02] VITALS: BP 126/80
--- NOTE | 2020-01-18 10:05 | NUR ---
Discharge Note: TOÑO ROLLINS [facility]2 [facility] Discharge instructions and discharge home medications reviewed with Patient and a copy given. All questions have been answered and understanding verbalized. The following instructions and handouts were given: comfort care Discontinued lines and drains: IV catheter removed intact. Tele monitor removed. Patient discharged to Home with self care via family.
[2020-01-18] MEDS ORDERED: ATORVASTATIN CALCIUM 20 MG TABLET PO SCH (21:00)
== END 2020-01-18 10:26 | disposition home or self-care (01) ==
LOC: ER 20:26 → ED HOLD 22:24 → 2 SOUTH 01-18 01:38
PROVIDERS: ADMIT Family Medicine; ATTEND Family Medicine
DX: R07.89 Other chest pain (principal); F41.9 Anxiety disorder, unspecified; I10 Essential (primary) hypertension; F31.9 Bipolar disorder, unspecified; I25.10 Atherosclerotic heart disease of native coronary artery without angina pectoris; Z87.891 Personal history of nicotine dependence; Z95.5 Presence of coronary angioplasty implant and graft; Z90.49 Acquired absence of other specified parts of digestive tract
CPT/HCPCS: 36415; 71045; 80053; 80061; 82553; 83690; 83735; 83880; 84484; 85025; 85379; 85730; 93005; 96360; 99285; G0378; J7030; G0379; J3010

== ENCOUNTER 2020-05-01 03:06 | Emergency (ER) | payer MEDICARE ==
[~2020-05-01] VITALS: Ht 170.2 cm; Wt 60.0 kg
--- NOTE | 2020-05-01 03:40 | ED.ADGEN ---
Past Medical History Past Medical History: Anxiety, Bipolar, CAD, Hypertension, [place], Other Additional Past Medical Histor: HERNIATED DISC, ANEURYSM(AAA), thoracic aneurysm, claudication Past Surgical History: Angioplasty, Appendectomy, Cholecystectomy, Coronary Bypass Surgery, Other Additional Past Surgical Histo: CARDIAC STENTS Smoking Status: Current Every Day Smoker Alcohol Use: Occasionally Drug Use: None General Adult EDM: Chief Complaint: CHEST PAIN HPI: HPI: Patient is a 74 year old female coming in by EMS. Patient is somewhat scattered and indecisive with EMS and in the emergency department. Patient had multiple complaints including insomnia, chest pain, and wanting evaluation for possible hospice. Patient states "everything is wrong with me". Patient was talked down and agreed to ECG and labs. Patient insists that the pain is with exertion only and not at rest. Says the pain radiates to her arms and her back but is unable to characterize it, however she states it is similar to her prior heart attack pain but not as bad. Patient states that she does not think she is having a heart attack. She says she quit smoking yesterday. Has been having a sore throat and cough productive of white phlegm. Denies any fever, vomiting, diarrhea. Per chart review patient was seen here for A. fib with RVR and elevated troponin and discharged 6 days ago. At that time she declined heart catheterization. Patient states she has been compliant on her medications and last week was her first episode of atrial fibrillation. She denies any palpitations or sensation of irregular heartbeat. She denies any blood in her stools or melena. Patient later admitted that her chest pain is chronic and her primary concern is that she ran out of her Xanax 2 days ago. 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 States she is prescribed 1 mg alprazolam to take twice a day. Says she is often been taking Drug 3 a day and that is why she ran out early. Per [facility] she had a prescription for 60 alprazolam filled March 04 Review of Systems: Review of Systems: Negative other than reported in HPI Current Medications: Current Medications Medications (Trade) Dose Ordered Sig/Amari Start Time Stop Time Status Last Admin Dose Admin Alprazolam (Xanax) 1 mg 1X ONCE 05/01/20 04:30 05/01/20 04:31 DC 05/01/20 04:31 1 MG Allergies: Allergies: Allergies Coded Allergies Type Severity Reaction Last Updated Verified Latex, Natural Rubber Allergy Intermediate Itching 07/06/17 Yes fentanyl Adverse Reaction Intermediate 01/18/20 Yes hydromorphone Adverse Reaction Intermediate 03/12/18 Yes morphine Adverse Reaction Intermediate Nausea and Vomiting 03/12/18 Yes Physical Exam: PE: Constitutional: Well developed, well nourished, no acute distress, non-toxic appearance. [] HENT: Normocephalic, atraumatic, bilateral external ears normal, oropharynx moist, no oral exudates, nose normal. [] Eyes: PERRLA, EOMI, conjunctiva normal, no discharge. [] Neck: Normal range of motion, no tenderness, supple, no stridor. [] Cardiovascular:Heart rate regular rhythm, no murmur [] Lungs & Thorax: Bilateral breath sounds clear to auscultation [] Abdomen: Bowel sounds normal, soft, no tenderness, no masses, no pulsatile masses. [] Skin: Warm, dry, no erythema, no rash. [] Back: No tenderness, no CVA tenderness. [] Extremities: No tenderness, no cyanosis, no clubbing, ROM intact, no edema. [] Neurologic: Alert and oriented X 3, normal motor function, normal sensory function, no focal deficits noted. [] Psychologic: Affect normal, judgement normal, mood normal. [] Current Patient Data: Labs: Laboratory Tests Test 05/01/20 03:25 White Blood Count 8.2 x10^3/uL (4.0-11.0) Red Blood Count 4.54 x10^6/uL (3.50-5.40) Hemoglobin 14.7 g/dL (12.0-15.5) Hematocrit 43.3 % (36.0-47.0) Mean Corpuscular Volume 95 fL (79-100) Mean Corpuscular Hemoglobin 32 pg (25-35) Mean Corpuscular Hemoglobin Concent 34 g/dL (31-37) Red Cell Distribution Width 13.3 % (11.5-14.5) Platelet Count 219 x10^3/uL (140-400) Neutrophils (%) (Auto) 72 % (31-73) Lymphocytes (%) (Auto) 19 % (24-48) L Monocytes (%) (Auto) 6 % (0-9) Eosinophils (%) (Auto) 2 % (0-3) Basophils (%) (Auto) 1 % (0-3) Neutrophils # (Auto) 5.9 x10^3/uL (1.8-7.7) Lymphocytes # (Auto) 1.6 x10^3/uL (1.0-4.8) Monocytes # (Auto) 0.5 x10^3/uL (0.0-1.1) Eosinophils # (Auto) 0.1 x10^3/uL (0.0-0.7) Basophils # (Auto) 0.1 x10^3/uL (0.0-0.2) Sodium Level 145 mmol/L (136-145) Potassium Level 3.3 mmol/L (3.5-5.1) L Chloride Level 106 mmol/L (98-107) Carbon Dioxide Level 27 mmol/L (21-32) Anion Gap 12 (6-14) Blood Urea Nitrogen 17 mg/dL (7-20) Creatinine 1.2 mg/dL (0.6-1.0) H Estimated GFR (Cockcroft-Gault) 44.2 BUN/Creatinine Ratio 14 (6-20) Glucose Level 125 mg/dL (70-99) H Calcium Level 9.3 mg/dL (8.5-10.1) Total Bilirubin 0.8 mg/dL (0.2-1.0) Aspartate Amino Transferase (AST) 17 U/L (15-37) Alanine Aminotransferase (ALT) 16 U/L (14-59) Alkaline Phosphatase 100 U/L (46-116) Troponin I Quantitative 0.049 ng/mL (0.000-0.055) Total Protein 7.5 g/dL (6.4-8.2) Albumin 4.1 g/dL (3.4-5.0) Albumin/Globulin Ratio 1.2 (1.0-1.7) Laboratory Tests 05/01/20 03:25 Laboratory Tests 05/01/20 03:25 EKG: EKG: Sinus rhythm, normal axis, will incomplete right bundle branch block LVH, no ectopy, normal intervals [] Heart Score: Risk Factors: Risk Factors: DM, Current or recent (<one month) smoker, HTN, HLP, family history of CAD, obesity. Risk Scores: Score 0 - 3: 2.5% MACE over next 6 weeks - Discharge Home Score 4 - 6: 20.3% MACE over next 6 weeks - Admit for Clinical Observation Score 7 - 10: 72.7% MACE over next 6 weeks - Early Invasive Strategies Radiology/Procedures: Radiology/Procedures: EP interpretation of two-view chest x-ray: Unremarkable, sternotomy wires in place, no cardiomegaly or infiltrates. No osseous deformities. [] Course & Med Decision Making: Course & Med Decision Making Pertinent Labs and Imaging studies reviewed. (See chart for details) [] Dragon Disclaimer: Dragon Disclaimer: This electronic medical record was generated, in whole or in part, using a voice recognition dictation system. Departure Departure Impression: Primary Impression: Anxiety Disposition: 01 DC HOME SELF CARE/HOMELESS Condition: STABLE Referrals: CONRAD HOLLOWAY MD (PCP) Patient Instructions: Anxiety and Panic Attacks MARY AYON MD May 01, 2020 03:40
[2020-05-01 04:02] LABS: BASO # 0.1 x10^3/uL (0.0-0.2); BASO % 1 % (0-3); EOS # 0.1 x10^3/uL (0.0-0.7); EOS % 2 % (0-3); HEMATOCRIT 43.3 % (36.0-47.0); HEMOGLOBIN 14.7 g/dL (12.0-15.5); LYMPH # 1.6 x10^3/uL (1.0-4.8); LYMPH % 19 % (24-48); MEAN CORPUSCULAR HEMOGLOBIN 32 pg (25-35); MEAN CORPUSCULAR HGB CONC 34 g/dL (31-37); MEAN CORPUSCULAR VOLUME 95 fL (79-100); MONO # 0.5 x10^3/uL (0.0-1.1); MONO % 6 % (0-9); NEUT # 5.9 x10^3/uL (1.8-7.7); NEUT % 72 % (31-73); PLATELET COUNT 219 x10^3/uL (140-400); RED BLOOD COUNT 4.54 x10^6/uL (3.50-5.40); RED CELL DISTRIBUTION WIDTH 13.3 % (11.5-14.5); WHITE BLOOD COUNT 8.2 x10^3/uL (4.0-11.0)
[2020-05-01 04:04] LABS: CALCIUM 9.3 mg/dL (8.5-10.1); CREATININE 1.2 mg/dL (0.6-1.0); GFR 44.2; POTASSIUM 3.3 mmol/L (3.5-5.1)
[2020-05-01 04:10] LABS: ALBUMIN 4.1 g/dL (3.4-5.0); ALBUMIN/GLOBULIN RATIO 1.2 (1.0-1.7); TOTAL BILIRUBIN 0.8 mg/dL (0.2-1.0); TOTAL PROTEIN 7.5 g/dL (6.4-8.2)
[2020-05-01] MEDS ORDERED: ALPRAZolam 0.5 MG TABLET PO ONE (04:30)
[2020-05-01 05:35] VITALS: BP 170/85
--- NOTE | 2020-05-01 05:48 | RAD ---
INDICATION: Reason: chest pain / Spl. Instructions: / History: COMPARISON: April 23, 2020 FINDINGS: 2 view of chest obtained. Poststernotomy changes with calcific atherosclerosis. There is again some disorganization of the pulm onary markings. Mild haziness at the right greater than left lung base. Degenerative changes of the s pine. IMPRESSION: * Mild haziness at the right greater than left lung base. Could be secondary to atelectasis given th e location with early infiltrate also in the differential. Electronically signed by: Julito Alvarez MD (05/01/2020 5:46 AM) [id number]
== END 2020-05-01 04:37 | disposition home or self-care (01) ==
LOC: ER 03:06
DX: F41.9 Anxiety disorder, unspecified (principal); R07.89 Other chest pain; G47.00 Insomnia, unspecified; Z91.040 Latex allergy status; Z88.4 Allergy status to anesthetic agent; Z88.5 Allergy status to narcotic agent
CPT/HCPCS: 36415; 71046; 80053; 84484; 85025; 93005; 99285-25

== ENCOUNTER 2020-07-14 19:27 | Emergency (ER) | payer MEDICARE ==
[~2020-07-14] VITALS: Ht 167.6 cm; Wt 57.0 kg
[~2020-07-14 19:27] MED LIST changes: -ISOS60TA2 PO; +ISOS60TA55 PO; -LISI-334 PO; +LISI10TA16 PO; -LISI10TA2 PO; +LISI20TA18 PO
--- NOTE | 2020-07-14 20:45 | RAD ---
Exam: CT head and cervical spine without contrast INDICATION: Head and neck pain after fall TECHNIQUE: Sequential axial images through the head and cervical spine were obtained without the admi nistration of IV contrast. Comparisons: None FINDINGS: Head: No focal parenchymal lesion or hemorrhage is identified. There is no midline shift or sulcal effaceme nt. Mild patchy evidence in the periventricular white matter. No acute vascular territory infarction is i dentified. Encinas-white distinction is preserved. The ventricular system is within normal limits without compression hydrocephalus. The basal cisterns are well maintained. The visualized portions of the paranasal sinuses and mastoid air cells are well-pneumatized. No acute fractures. Cervical spine: Vertebral body heights and alignment are well-maintained. Fracture to the cervical spine is not identified. Mild degenerative disc disease in the cervical spine greatest at C5-C6 and C6-7. Mild bilateral facet arthropathy is also noted. Visualized paraspinal soft tissues are unremarkable. IMPRESSION: 1. No acute intracranial abnormality. 2. Negative CT C-spine for acute traumatic injury. Exposure: One or more of the following in the visualized dose reduction techniques were utilized for this examination: 1. Automated exposure control 2. Adjustment of the MA and/or KV according to patient size Use of iterative of reconstructive technique Electronically signed by: Florian Corbett MD (07/14/2020 8:42 PM) [facility]
--- NOTE | 2020-07-14 20:52 | RAD ---
EXAM: CT Abdomen and Pelvis without IV contrast INDICATION: Reason: R abdomen, head, and neck pain after fall / Spl. Instructions: / History: TECHNIQUE: Multi-detector row CT images were acquired from the lung bases through the abdomen and pel vis without the use of IV contrast. Sagittal and coronal images were acquired from the transaxial khoi a. All CT scans performed at this facility utilize dose optimization techniques as appropriate to the exam, including the following: Automated exposure control and adjustment of the mA and/or KV accordi ng to patient size (this includes techniques or standardized protocols for targeted exams where dose is indication/reason for exam). ORAL CONTRAST: None COMPARISON: CT angiogram chest, abdomen and pelvis of 04/14/2020 FINDINGS: The absence of IV contrast limits evaluation of soft tissue pathology. LOWER CHEST: Fibrofatty infiltration of the left ventricular myometrium, compatible with extensive ch ronic myocardial infarction. Extensive stenting in the right coronary artery distribution is seen annia ng with previous sternotomy. Lung bases are clear. Thoracic aorta is tortuous and extensively calcifi ed. It measures 3.0 cm at the hiatus, not significantly changed in the interval.. LIVER: Unremarkable BILIARY SYSTEM: Gallbladder surgically absent Bile ducts are not dilated. PANCREAS: Unremarkable SPLEEN: Unremarkable ADRENALS: Mild diffuse fullness of the left adrenal gland is redemonstrated, similar to prior. KIDNEYS & URETERS: Left renal cortical cysts are redemonstrated, requiring no additional imaging fol low-up. The largest in the midpole left kidney measures 3.5 cm. BLADDER: Unremarkable REPRODUCTIVE ORGANS: Unremarkable GASTROINTESTINAL: Extensive colonic diverticulosis. No findings of bowel obstruction, perforation or acute inflammation. Appendix is not well seen but there are no findings suggesting acute appendicitis . MESENTERY/PERITONEUM/RETROPERITONEUM: Unremarkable VASCULAR: Bilobed abdominal aortic aneurysm is again identified, measuring up to 5.9 cm in maximum d iameter, unchanged from prior. Inferior lobe of the abdominal aortic aneurysm measures 2.9 cm in the coronal plane in craniocaudal extent and is also unchanged in the interval. No periaortic soft tissue stranding suggesting a leak or rupture is identified. LYMPH NODES: No adenopathy OSSEOUS & SOFT TISSUES: No acute osseous abnormalities noted. Superior endplate compression deformit y at L3 asymmetric to the left is unchanged from prior. IMPRESSION: 1. No acute traumatic findings identified on CT of the abdomen and pelvis. 2. Extensive atherosclerotic vascular degenerative changes including evidence of extensive myocardial infarction, coronary artery stenting, and a bilobed infrarenal abdominal aortic aneurysm with the la rger lobe measuring 5.9 cm, unchanged from 04/14/2020. No evidence of aneurysm leak or rupture. Electronically signed by: Tami Cruz MD (07/14/2020 8:50 PM) [facility] – [place]
--- NOTE | 2020-07-14 20:55 | RAD ---
PROCEDURE: XR KNEE 3 VIEWS_RT STUDY DATE: 07/14/2020 CLINICAL INDICATION / HISTORY: Reason: R knee pain after fall / Spl. Instructions: / History: . TECHNIQUE: AP, lateral, and oblique views of the right knee. COMPARISON: None FINDINGS: The osseous structures are intact. The articular surfaces are smooth. The joint space is maintained. No intra-articular loose bodies. The alignment is within normal limits. The soft tiss ues are unremarkable. No obvious joint effusion. No radio-opaque foreign bodies are identified. IMPRESSION: No fracture or dislocation is identified. PROCEDURE: XR EXAM OF ANKLE_RIGHT 3VIEWS STUDY DATE: 07/14/2020 CLINICAL INDICATION / HISTORY: Reason: R knee pain after fall / Spl. Instructions: / History: . TECHNIQUE: Right ankle 3 views. COMPARISON: Right knee x-rays of the same day. FINDINGS: The ankle mortise is approximated, and the talar dome is unremarkable. The joint space widt hs are maintained. No fracture or dislocation is identified. Mild soft tissue swelling is appreciated . IMPRESSION: Findings suggesting right ankle sprain. No acute osseous abnormality. Electronically signed by: Tami Cruz MD (07/14/2020 8:52 PM) [facility] [place] [facility] [place]
--- NOTE | 2020-07-14 21:04 | ED.ADGEN ---
Past Medical History Past Medical History: Anxiety, Bipolar, CAD, Hypertension, [place], Other Additional Past Medical Histor: HERNIATED DISC, ANEURYSM(AAA), thoracic aneurysm, claudication Past Surgical History: Angioplasty, Appendectomy, Cholecystectomy, Coronary Bypass Surgery, Other Additional Past Surgical Histo: CARDIAC STENTS Smoking Status: Current Every Day Smoker Alcohol Use: Occasionally Drug Use: None General Adult EDM: Chief Complaint: MECHANICAL FALL HPI: HPI: Patient is a 74 year old female who presents to the emergency department via EMS today with multiple complaints after she lost her balance and fell while trying to stand up on a chair. Patient reports that she was not standing on the chair when she fell, the chair tipped over while she was trying to get on top of it. She denies any loss of consciousness. Patient states she hit her head on the floor. She denies any nausea, vomiting, numbness, tingling, or weakness. Patient reports a history of an abdominal aortic aneurysm. She states that she also hit the floor really hard with her abdomen has pain in the right side of her abdomen now. She complains of bruising, swelling, and pain to her right anterior knee and her right ankle. Patient refuses to wear c-collar even though she complains of posterior neck bony tenderness. Currently rates her pain a 10 out of 10 on pain scale, she denies any alleviating factors. Review of Systems: Review of Systems: Complete ROS is negative unless otherwise noted in HPI. Allergies: Allergies: Allergies Coded Allergies Type Severity Reaction Last Updated Verified Latex, Natural Rubber Allergy Intermediate Itching 07/06/17 Yes fentanyl Adverse Reaction Intermediate 01/18/20 Yes hydromorphone Adverse Reaction Intermediate 03/12/18 Yes morphine Adverse Reaction Intermediate Nausea and Vomiting 03/12/18 Yes Physical Exam: PE: See Above Constitutional: Well developed, well nourished, no acute distress, non-toxic appearance. [] HENT: Normocephalic, atraumatic, bilateral external ears normal, nose normal. [] Eyes: PERRLA, EOMI, conjunctiva normal, no discharge. [] Neck: Normal range of motion, no stridor; posterior bony tenderness to palpation, no crepitus, step-off, patient refuses c-collar [] Cardiovascular:Heart rate regular rhythm Lungs & Thorax: Respirations even and unlabored, no retractions, no respiratory distress Abdomen: soft, right side abdominal tenderness to palpation without any palpable mass or pulsatile mass, no ecchymosis Skin: Warm, dry, no erythema, no rash. [] Extremities: Right knee: Medial anterior 1+ edema with hematoma present, no bony crepitus, no obvious deformity, sensation intact, no cyanosis, ROM intact; Right ankle: diffuse tenderness to palpation without crepitus or obvious deformity, 1+ edema, bruising noted, no cyanosis, pedal pulse 2+, ROM limited due to pain Right shoulder: Lateral tenderness to palpation without obvious deformity, crepitus, or bruising, no edema, ROM limited due to pain Neurologic: Alert and oriented X 3, normal motor, normal sensory, no focal d eficits noted. [] Psychologic: Affect normal, judgement normal, mood normal. [] Current Patient Data: Vital Signs: Vital Signs Date Time Temp Pulse Resp B/P (MAP) Pulse Ox O2 Delivery O2 Flow Rate FiO2 07/14/20 21:30 70 16 145/82 (103) 97 Room Air 07/14/20 19:30 98.7 98.7 EKG: EKG: [] Heart Score: Risk Factors: Risk Factors: DM, Current or recent (<one month) smoker, HTN, HLP, family history of CAD, obesity. Risk Scores: Score 0 - 3: 2.5% MACE over next 6 weeks - Discharge Home Score 4 - 6: 20.3% MACE over next 6 weeks - Admit for Clinical Observation Score 7 - 10: 72.7% MACE over next 6 weeks - Early Invasive Strategies Radiology/Procedures: Radiology/Procedures: PROCEDURE: KNEE RIGHT 3V PROCEDURE: XR KNEE 3 VIEWS_RT STUDY DATE: 07/14/2020 CLINICAL INDICATION / HISTORY: Reason: R knee pain after fall / Spl. Instruction s: / History: . TECHNIQUE: AP, lateral, and oblique views of the right knee. COMPARISON: None FINDINGS: The osseous structures are intact. The articular surfaces are smooth. The joint space is maintained. No intra-articular loose bodies. The align ment is within normal limits. The soft tissues are unremarkable. No obvious joint effusion. No radio-opaque foreign bodies are identified. IMPRESSION: No fracture or dislocation is identified. PROCEDURE: XR EXAM OF ANKLE_RIGHT 3VIEWS STUDY DATE: 07/14/2020 CLINICAL INDICATION / HISTORY: Reason: R knee pain after fall / Spl. Instructions: / History: . TECHNIQUE: Right ankle 3 views. COMPARISON: Right knee x-rays of the same day. FINDINGS: The ankle mortise is approximated, and the talar dome is unremarkable. The joint space widths are maintained. No fracture or dislocation is identified. Mild soft tissue swelling is appreciated. IMPRESSION: Findings suggesting right ankle sprain. No acute osseous abnormality. Electronically signed by: Tami Cruz MD (07/14/2020 8:52 PM) [facility] – [place][] PROCEDURE: CT HEAD AND CERVICAL SPINE WO Exam: CT head and cervical spine without contrast INDICATION: Head and neck pain after fall TECHNIQUE: Sequential axial images through the head and cervical spine were obtained without the administration of IV contrast. Comparisons: None FINDINGS: Head: No focal parenchymal lesion or hemorrhage is identified. There is no midline shift or sulcal effacement. Mild patchy evidence in the periventricular white matter. No acute vascular territory infarction is identified. Encinas-white distinction is preserved. The ventricular system is within normal limits without compression hydrocephalus. The basal cisterns are well maintained. The visualized portions of the paranasal sinuses and mastoid air cells are well- pneumatized. No acute fractures. Cervical spine: Vertebral body heights and alignment are well-maintained. Fracture to the cervical spine is not identified. Mild degenerative disc disease in the cervical spine greatest at C5-C6 and C6-7. Mild bilateral facet arthropathy is also noted. Visualized paraspinal soft tissues are unremarkable. IMPRESSION: 1. No acute intracranial abnormality. 2. Negative CT C-spine for acute traumatic injury. PROCEDURE: CT ABDOMEN PELVIS WO CONTRAST EXAM: CT Abdomen and Pelvis without IV contrast INDICATION: Reason: R abdomen, head, and neck pain after fall / Spl. Instructions: / History: TECHNIQUE: Multi-detector row CT images were acquired from the lung bases through the abdomen and pelvis without the use of IV contrast. Sagittal and coronal images were acquired from the transaxial data. All CT scans performed at this facility utilize dose optimization techniques as appropriate to the exam, including the following: Automated exposure control and adjustment of the mA and/or KV according to patient size (this includes techniques or standardized protocols for targeted exams where dose is indication/reason for exam). ORAL CONTRAST: None COMPARISON: CT angiogram chest, abdomen and pelvis of 04/14/2020 FINDINGS: The absence of IV contrast limits evaluation of soft tissue pathology. LOWER CHEST: Fibrofatty infiltration of the left ventricular myometrium, compatible with extensive chronic myocardial infarction. Extensive stenting in the right coronary artery distribution is seen along with previous sternotomy. Lung bases are clear. Thoracic aorta is tortuous and extensively calcified. It measures 3.0 cm at the hiatus, not significantly changed in the interval.. LIVER: Unremarkable BILIARY SYSTEM: Gallbladder surgically absent Bile ducts are not dilated. PANCREAS: Unremarkable SPLEEN: Unremarkable ADRENALS: Mild diffuse fullness of the left adrenal gland is redemonstrated, similar to prior. KIDNEYS & URETERS: Left renal cortical cysts are redemonstrated, requiring no additional imaging follow-up. The largest in the midpole left kidney measures 3.5 cm. BLADDER: Unremarkable REPRODUCTIVE ORGANS: Unremarkable GASTROINTESTINAL: Extensive colonic diverticulosis. No findings of bowel obstruction, perforation or acute inflammation. Appendix is not well seen but th ere are no findings suggesting acute appendicitis. MESENTERY/PERITONEUM/RETROPERITONEUM: Unremarkable VASCULAR: Bilobed abdominal aortic aneurysm is again identified, measuring up to 5.9 cm in maximum diameter, unchanged from prior. Inferior lobe of the abdominal aortic aneurysm measures 2.9 cm in the coronal plane in craniocaudal extent and is also unchanged in the interval. No periaortic soft tissue stranding suggesting a leak or rupture is identified. LYMPH NODES: No adenopathy OSSEOUS & SOFT TISSUES: No acute osseous abnormalities noted. Superior endplate compression deformity at L3 asymmetric to the left is unchanged from prior. IMPRESSION: 1. No acute traumatic findings identified on CT of the abdomen and pelvis. 2. Extensive atherosclerotic vascular degenerative changes including evidence of extensive myocardial infarction, coronary artery stenting, and a bilobed in frarenal abdominal aortic aneurysm with the larger lobe measuring 5.9 cm, unchanged from 04/14/2020. No evidence of aneurysm leak or rupture. Electronically signed by: Tami Cruz MD (07/14/2020 8:50 PM) [facility] [place] Course & Med Decision Making: Course & Med Decision Making Pertinent Labs and Imaging studies reviewed. (See chart for details) [] Dragjosé luis Disclaimer: Dragon Disclaimer: This electronic medical record was generated, in whole or in part, using a voice recognition dictation system. Departure Departure Impression: Primary Impression: Fall Additional Impressions: Closed head injury without concussion Neck pain, acute Right anterior knee pain Contusion of right knee, initial encounter Acute right ankle pain AAA (abdominal aortic aneurysm) without rupture Disposition: 01 DC HOME SELF CARE/HOMELESS Condition: STABLE Referrals: CONRAD HOLLOWAY MD (PCP) Patient Instructions: Ankle Pain, Contusion, [id number], Fall Prevention and Home Safety, [id number], Head Injury, Adult, [id number], Knee Pain, [id number], Shoulder Pain, [id number] Additional Instructions: You can take Tylenol or ibuprofen as needed for pain. Recommend application of ice, elevation, and rest of affected extremity. Wear the ankle splint that was placed until follow up appointment. Weightbearing as tolerated. Follow-up with Dr. Holloway in 1 to 2 days, return to the ER if your symptoms worsen or fever develops.. Problem Qualifiers Primary Impression: Fall Encounter type: initial encounter Qualified Codes: W19.XXXA - Unspecified fall, initial encounter Additional Impressions: Closed head injury without concussion Encounter type: initial encounter Qualified Codes: S09.90XA - Unspecified injury of head, initial encounter JAMIE MCDANIEL APRN Jul 14, 2020 21:04
[2020-07-14 23:09] VITALS: BP 166/94
== END 2020-07-14 23:09 | disposition home or self-care (01) ==
LOC: ER 19:27
DX: S80.01XA Contusion of right knee, initial encounter (principal); S90.01XA Contusion of right ankle, initial encounter; S09.90XA Unspecified injury of head, initial encounter; I71.4 Abdominal aortic aneurysm, without rupture; I10 Essential (primary) hypertension; I25.10 Atherosclerotic heart disease of native coronary artery without angina pectoris; F31.9 Bipolar disorder, unspecified; I25.2 Old myocardial infarction; F17.200 Nicotine dependence, unspecified, uncomplicated; Z95.5 Presence of coronary angioplasty implant and graft; Z90.89 Acquired absence of other organs; Z90.49 Acquired absence of other specified parts of digestive tract; W20.8XXA Other cause of strike by thrown, projected or falling object, initial encounter; Y93.89 Activity, other specified; Y92.89 Other specified places as the place of occurrence of the external cause; Y99.8 Other external cause status
CPT/HCPCS: 70450; 72125; 73562; 73610; 74176; 99285; L4350; 96360

== ENCOUNTER 2020-10-14 08:57 | Emergency (ER) | payer MEDICARE ==
[~2020-10-14] VITALS: Ht 165.1 cm; Wt 60.0 kg
[2020-10-14 09:00] VITALS: BP 163/82
--- NOTE | 2020-10-14 09:42 | RAD ---
XR CHEST 1V CLINICAL INDICATIONS: Chest pain COMPARISON: May 01, 2020. Findings: No acute lung infiltrate or pleural effusion or pulmonary edema or lung mass or pneumothora x is seen. Sternotomy is evident The heart size, pulmonary vasculature, mediastinum and both alvarez are otherwise unremarkable. IMPRESSION: No acute radiographic abnormality is seen. Electronically signed by: Osmani Herr MD (10/14/2020 9:39 AM) [id number]
--- NOTE | 2020-10-14 09:52 | PHYS DOC ---
Past Medical History Past Medical History: Anxiety, Bipolar, CAD, Hypertension, [place], Other Additional Past Medical Histor: HERNIATED DISC, ANEURYSM(AAA), thoracic aneurysm, claudication Past Surgical History: Angioplasty, Appendectomy, Cholecystectomy, Coronary Bypass Surgery, Other Additional Past Surgical Histo: CARDIAC STENTS Smoking Status: Current Every Day Smoker Alcohol Use: Occasionally Drug Use: None General Adult EDM: Chief Complaint: MULTIPLE COMPLAINTS HPI: HPI: 74 yo F PMH CAD, bipolar disorder, HTN, and HLD presents to the ed bibems with c/o chest pain and rectal bleeding when wiping x2 days, 4 baby aspirin given by EMS prior to arrival. Upon ed arrival states her chest past has resolved and she only came to ED because her friend forced her to come. Patient is ambulatory. Patient spontaneously was in the bathroom and is requesting be discharged. Understands she is leaving AGAINST MEDICAL ADVICE and states " I do not care, I only came here because my neighbor convinced me to." States she has been suffering from chronic chest pain for years and "they can't do anything, I don't care if I or become disabled." Review of Systems: Review of Systems: Constitutional: Denies fever or chills. [] Eyes: Denies change in visual acuity. [] HENT: Denies nasal congestion or sore throat. [] Respiratory: Denies cough or shortness of breath. [] Cardiovascular: Denies chest pain or edema. [] GI: Denies abdominal pain, nausea, vomiting, bloody stools or diarrhea. [] : Denies dysuria. [] Musculoskeletal: Denies back pain or joint pain. [] Integument: Denies rash. [] Neurologic: Denies headache, focal weakness or sensory changes. [] Endocrine: Denies polyuria or polydipsia. [] Lymphatic: Denies swollen glands. [] Psychiatric: Denies depression or anxiety. [] Heart Score: C/O Chest Pain: Yes HEART Score for Chest Pain: HEART Score for Chest Pain Response (Comments) Value History Slighlty/Non-Suspicious 0 ECG Nonspecific Repolarizatio 1 Age > 65 2 Risk Factors >3 Risk Factors or Hx CAD 2 Total 5 Risk Factors: Risk Factors: DM, Current or recent (<one month) smoker, HTN, HLP, family history of CAD, obesity. Risk Scores: Score 0 - 3: 2.5% MACE over next 6 weeks - Discharge Home Score 4 - 6: 20.3% MACE over next 6 weeks - Admit for Clinical Observation Score 7 - 10: 72.7% MACE over next 6 weeks - Early Invasive Strategies Allergies: Allergies: Allergies Coded Allergies Type Severity Reaction Last Updated Verified Latex, Natural Rubber Allergy Intermediate Itching 07/06/17 Yes fentanyl Adverse Reaction Intermediate 01/18/20 Yes hydromorphone Adverse Reaction Intermediate 03/12/18 Yes morphine Adverse Reaction Intermediate Nausea and Vomiting 03/12/18 Yes Physical Exam: PE: Constitutional: Well developed, well nourished, no acute distress, non-toxic appearance. HENT: Normocephalic, atraumatic, Eyes: EOMI, conjunctiva normal, no discharge. Neck: Normal range of motion, supple, Cardiovascular: S1/2 present, regular rhythm Lungs & Thorax: Speaking in full sentences, bilateral equal chest rise, no tachypnea or increased work of breathing Abdomen: soft, no tenderness, Skin: Warm, dry, no erythema, no rash. [] Back: No tenderness, no CVA tenderness. [] Extremities: No tenderness, no cyanosis, no lower extremity edema Neurologic: Alert and oriented X 3, normal motor function, normal sensory function, no focal deficits noted. [] Psychologic: Affect normal, judgement normal, mood normal-no isamar : Nonthrombosed rectal hemorrhoids with no anal fissures, no bright red blood per rectum, no blood on clothing, no signs of melena or bleeding Current Patient Data: Vital Signs: Vital Signs Date Time Temp Pulse Resp B/P (MAP) Pulse Ox O2 Delivery O2 Flow Rate FiO2 10/14/20 09:00 98.5 66 16 163/82 (109) 99 Room Air 98.5 EKG: EKG: Sinus rhythm at 68 bpm, no axis deviation, normal intervals, T wave inversion in V6 and V5, no ST elevations or ST depressions, no active chest pain in the ED, EMS prenotification [place] [address]ations, T wave inversions V5 V6, T wave inversions are new changes when compared to prior EKG from 2010, I suspect patient has multiple mrns Radiology/Procedures: Radiology/Procedures: IMAGING REPORT Signed PATIENT: TOÑO ROLLINS SACCOUNT: [id number] : 1945 LOCATION: ER AGE: 74 SEX: F EXAM STATUS: PRE ER ORD. PHYSICIAN: MELANIE MORALES DO REASON: cp PROCEDURE: PORTABLE CHEST 1V XR CHEST 1V CLINICAL INDICATIONS: Chest pain COMPARISON: May 01, 2020. Findings: No acute lung infiltrate or pleural effusion or pulmonary edema or lung mass or pneumothorax is seen. Sternotomy is evident The heart size, p ulmonary vasculature, mediastinum and both alvarez are otherwise unremarkable. IMPRESSION: No acute radiographic abnormality is seen. Electronically signed by: Heather Herr MD (10/14/2020 9:39 AM) [id number] DICTATED and SIGNED BY: HEATHER HERR MD DATE: 10/14/20 [id number] 0 Course & Med Decision Making: Course & Med Decision Making Pertinent Labs and Imaging studies reviewed. (See chart for details) Concern for chest pain and possible hematochezia in a well-appearing patient with no signs of psychosis or isamar. The patient has decided to leave our fa cility against medical advice. I have assessed patient's ability to make informed decision and feel the patient has the capacity to comprehend information regarding the current medical condition and appreciates the impact of the disease or condition and the consequences of various options for treatment, including foregoing treatment. The patient possesses the ability to evaluate all treatment options, comparing the risks and benefits of each option, communicate his or her choice in a consistent manner over time, and is able to make rational choices. I explained to the patient further testing, treatment, and evaluation I would like to perform in the emergency department visit as well as any possible alternatives that can be accomplished in a timely manner. I have outlined the possible risks of foregoing any or all of these interventions and the patient understands and acknowledges that the decision to leave may result in undesirable consequences such as , permanent disability, and/or loss of current lifestyle. Even though leaving AMA is not ideal, I have instructed the patient to follow any discharge instructions given, take any medications prescribed, and resume care as soon as possible with another provider. This conversation was witnessed by another member of the emergency department staff and we clearly communicated the patient is welcome to return anytime to continue care at our facility. Patient refused to wait in ED for any discharge papers. Yang Disclaimer: Yang Disclaimer: This electronic medical record was generated, in whole or in part, using a voice recognition dictation system. Departure Departure Impression: Primary Impression: Chest pain Additional Impressions: Left against medical advice Hematochezia Hemorrhoids Disposition: 07 LEFT AGAINST MEDICAL ADVICE Condition: STABLE Referrals: CONRAD HOLLOWAY MD (PCP) in 24 hours Patient Instructions: Chest Pain (Nonspecific), Discharge Against Medical Advice, Hemorrhoids Additional Instructions: FOLLOW UP WITH CARDIOLOGY: in 24-48 hours for re-evaluation [facility] Cardiology [address] [address] EMERGENCY DEPARTMENT GENERAL DISCHARGE INSTRUCTIONS Thank you for coming to [facility] Emergency Department (ED) today and trusting us with you care. We trust that you had a positive experience in our Emergency Department. If you wish to speak to the department management, you may call the Director at [phone]. YOUR FOLLOW UP INSTRUCTIONS ARE FOLLOWS: 1. Do you have a private Doctor? If you do not have a private doctor, please ask for a resource list of physicians or clinics that may be able to assist you with follow up care. 2. The Emergency Physicain has interpreted your x-rays. The X-Ray specialist will also review them. If there is a change in the findings, you will be notified in 48 hours when at all possible. 3. A lab test or culture has been done, your results will be reviewed and you will be notified if you need a change in treatment. ADDITIONAL INSTRUCTIONS AND INFORMATION: 1. Your care today has been supervised by a physician who is specially trained in emergency care. Many problems require more than one evaluation for a complete diagnosis and treatment. We recommend that you schedule your follow up appointment as recommended to ensure complete treatment of you illness or injury. If you are unable to obtain follow up care and continue to have a problem, or if your condition worsens, we recommend that you return to the ED. 2. We are not able to safely determine your condition over the phone nor are we able to give sound medical advice over the phone. For these safety reasons, if you call for medical advice we will ask you to come to the ED for further evaluation. 3. If you have any questions regarding these discharge instructions please call the ED at [phone]. SAFETY INFORMATION: In the interest of safety, wellness, and injury prevention; we encourage you to wear your sealbelt, if you smoke; quite smoking, and we encourage family to use a protective helmet for bicycling and other sporting events that present an increased risk for head injury. IF YOUR SYMPTOMS WORSEN OR NEW SYMPTOMS DEVELOP, OR YOU HAVE CONCERNS ABOUT YOUR CONDITION; OR IF YOUR CONDITION WORSENS WHILE YOU ARE WAITING FOR YOUR FOLLOW UP APPOINTMENT; EITHER CONTACT YOUR PRIMARY CARE DOCTOR, THE PHYSICIAN WHOSE NAME AND NUMBER YOU WERE GIVEN, OR RETURN TO THE ED IMMEDIATELY. [facility]ENTER[facility]ELANIE DO October 14, 2020 09:52
== END 2020-10-14 10:00 | disposition left against medical advice (07) ==
LOC: ER 08:57
DX: R07.89 Other chest pain (principal); K64.8 Other hemorrhoids; K92.1 Melena; F31.9 Bipolar disorder, unspecified; I10 Essential (primary) hypertension; I25.10 Atherosclerotic heart disease of native coronary artery without angina pectoris; I25.2 Old myocardial infarction; F17.200 Nicotine dependence, unspecified, uncomplicated; Z95.5 Presence of coronary angioplasty implant and graft; Z95.1 Presence of aortocoronary bypass graft; Z90.49 Acquired absence of other specified parts of digestive tract; Z90.89 Acquired absence of other organs; Z91.040 Latex allergy status; Z88.4 Allergy status to anesthetic agent; Z88.5 Allergy status to narcotic agent
CPT/HCPCS: 71045; 93005; 99283

== ENCOUNTER 2020-11-16 16:58 | Emergency (ER) | payer MEDICARE ==
[~2020-11-16] VITALS: Ht 167.6 cm; Wt 52.0 kg
[2020-11-16 17:04] VITALS: BP 118/63
[2020-11-16 17:15] LABS: BASO # 0.1 x10^3/uL (0.0-0.2); BASO % 1 % (0-3); EOS # 0.1 x10^3/uL (0.0-0.7); EOS % 1 % (0-3); HEMATOCRIT 41.5 % (36.0-47.0); HEMOGLOBIN 14.3 g/dL (12.0-15.5); LYMPH # 0.9 x10^3/uL (1.0-4.8); LYMPH % 11 % (24-48); MEAN CORPUSCULAR HEMOGLOBIN 33 pg (25-35); MEAN CORPUSCULAR HGB CONC 35 g/dL (31-37); MEAN CORPUSCULAR VOLUME 96 fL (79-100); MONO # 0.4 x10^3/uL (0.0-1.1); MONO % 6 % (0-9); NEUT # 6.1 x10^3/uL (1.8-7.7); NEUT % 82 % (31-73); PLATELET COUNT 138 x10^3/uL (140-400); RED BLOOD COUNT 4.33 x10^6/uL (3.50-5.40); RED CELL DISTRIBUTION WIDTH 13.1 % (11.5-14.5); WHITE BLOOD COUNT 7.5 x10^3/uL (4.0-11.0)
--- NOTE | 2020-11-16 17:31 | RAD ---
EXAMINATION: XR CHEST 1V CLINICAL HISTORY: Chest pain EXAM DATE/TIME: 11/16/2020 5:16 PM COMPARISON: 10/14/2020 FINDINGS: Lines, Tubes, and Devices: None. Cardiomediastinal Silhouette: Normal heart size. Aortic atherosclerotic calcification. Lungs and Pleura: Diffuse coarse interstitial prominence, similar to prior study and likely chronic. No evidence of focal airspace consolidation or pleural effusion. Bones and Soft Tissues: Degenerative changes of the thoracic spine. Median sternotomy wires and promi nent mediastinal surgical clips. Cholecystectomy clips. IMPRESSION: No evidence of acute cardiopulmonary abnormality or significant interval change. Electronically signed by: Tim Arteaga DO (11/16/2020 5:29 PM) [id number]
--- NOTE | 2020-11-16 17:47 | PHYS DOC ---
Past Medical History Past Medical History: Anxiety, Bipolar, CAD, Hypertension, [place], Other Additional Past Medical Histor: HERNIATED DISC, ANEURYSM(AAA), thoracic aneurysm, claudication Past Surgical History: Angioplasty, Appendectomy, Cholecystectomy, Coronary Bypass Surgery, Other Additional Past Surgical Histo: CARDIAC STENTS Smoking Status: Current Every Day Smoker Alcohol Use: Occasionally Drug Use: None General Adult EDM: Chief Complaint: CHEST PAIN HPI: HPI: Patient is a 74 year old female who stated that she had chest pain approximately 3 hours before arrival and she stated that she took 4 nitro. She stated that the pain went away. She stated that she had talked to a family member and they said that she need to call 911 since she was having chest pain. Patient states she called EMS but has no chest pain. Patient denies abdominal p ain, nausea, vomiting, diarrhea, fever, cough, shortness of breath, dizziness, headache, syncope, numbness or tingling or focal weakness. She denies falling. Patient has a history of aneurysm, claudication, AAA, hypertension, [place], smoking, anxiety, CAD, bipolar, herniated disc, cholecystectomy, appendectomy, angioplasty, bypass with stents. Review of Systems: Review of Systems: Constitutional: Denies fever or chills. [] Eyes: Denies change in visual acuity. [] HENT: Denies nasal congestion or sore throat. [] Respiratory: Denies cough or shortness of breath. [] Cardiovascular: + chest pain or denies edema. [] GI: Denies abdominal pain, nausea, vomiting, bloody stools or diarrhea. [] : Denies dysuria. [] Musculoskeletal: Denies back pain or joint pain. [] Integument: Denies rash. [] Neurologic: Denies headache, focal weakness or sensory changes. [] Endocrine: Denies polyuria or polydipsia. [] Lymphatic: Denies swollen glands. [] Psychiatric: Denies depression or anxiety. [] Heart Score: C/O Chest Pain: Yes HEART Score for Chest Pain: HEART Score for Chest Pain Response (Comments) Value History Moderately Suspicious 1 ECG Nonspecific Repolarizatio 1 Age > 65 2 Risk Factors >3 Risk Factors or Hx CAD 2 Troponin < Normal Limit 0 Total 6 Risk Factors: Risk Factors: DM, Current or recent (<one month) smoker, HTN, HLP, family history of CAD, obesity. Risk Scores: Score 0 - 3: 2.5% MACE over next 6 weeks - Discharge Home Score 4 - 6: 20.3% MACE over next 6 weeks - Admit for Clinical Observation Score 7 - 10: 72.7% MACE over next 6 weeks - Early Invasive Strategies Allergies: Allergies: Allergies Coded Allergies Type Severity Reaction Last Updated Verified Latex, Natural Rubber Allergy Intermediate Itching 07/06/17 Yes fentanyl Adverse Reaction Intermediate 01/18/20 Yes hydromorphone Adverse Reaction Intermediate 03/12/18 Yes morphine Adverse Reaction Intermediate Nausea and Vomiting 03/12/18 Yes Physical Exam: PE: Constitutional: Well developed, well nourished, no acute distress, non-toxic appearance. [] HENT: Normocephalic, atraumatic, bilateral external ears normal, oropharynx moist, no oral exudates, nose normal. [] Eyes: PERRLA, EOMI, conjunctiva normal, no discharge. [] Neck: Normal range of motion, no tenderness, supple, no stridor. [] Cardiovascular:Heart rate regular rhythm, no murmur [] Lungs & Thorax: Bilateral breath sounds clear to auscultation [] Abdomen: Bowel sounds normal, soft, no tenderness, no masses, no pulsatile masses. [] Skin: Warm, dry, no erythema, no rash. [] Back: No tenderness, no CVA tenderness. [] Extremities: No tenderness, no cyanosis, no clubbing, ROM intact, no edema. [] Neurologic: Alert and oriented X 3, normal motor function, normal sensory function, no focal deficits noted. [] Psychologic: Affect normal, judgement normal, mood normal. [] Current Patient Data: Labs: Laboratory Tests Test 11/16/20 17:08 White Blood Count 7.5 x10^3/uL (4.0-11.0) Red Blood Count 4.33 x10^6/uL (3.50-5.40) Hemoglobin 14.3 g/dL (12.0-15.5) Hematocrit 41.5 % (36.0-47.0) Mean Corpuscular Volume 96 fL (79-100) Mean Corpuscular Hemoglobin 33 pg (25-35) Mean Corpuscular Hemoglobin Concent 35 g/dL (31-37) Red Cell Distribution Width 13.1 % (11.5-14.5) Platelet Count 138 x10^3/uL (140-400) L Neutrophils (%) (Auto) 82 % (31-73) H Lymphocytes (%) (Auto) 11 % (24-48) L Monocytes (%) (Auto) 6 % (0-9) Eosinophils (%) (Auto) 1 % (0-3) Basophils (%) (Auto) 1 % (0-3) Neutrophils # (Auto) 6.1 x10^3/uL (1.8-7.7) Lymphocytes # (Auto) 0.9 x10^3/uL (1.0-4.8) L Monocytes # (Auto) 0.4 x10^3/uL (0.0-1.1) Eosinophils # (Auto) 0.1 x10^3/uL (0.0-0.7) Basophils # (Auto) 0.1 x10^3/uL (0.0-0.2) Laboratory Tests 11/16/20 17:08 Vital Signs: Vital Signs Date Time Temp Pulse Resp B/P (MAP) Pulse Ox O2 Delivery O2 Flow Rate FiO2 11/16/20 17:04 98.4 81 12 118/63 (81) 97 Room Air 98.4 EKG: EK and read by Dr. Martino is sinus rhythm, right bundle branch block, RVH, T abnormality. No STEMI. Radiology/Procedures: Radiology/Procedures: [] Impression: [facility] [address] [place] [address] IMAGING REPORT Signed PATIENT: TOÑO ROLLINS SACCOUNT: [id number] : 1945 LOCATION: ER AGE: 74 SEX: F EXAM STATUS: PRE ER ORD. PHYSICIAN: JENNI SOLIS APRN REASON: chest pain PROCEDURE: PORTABLE CHEST 1V EXAMINATION: XR CHEST 1V CLINICAL HISTORY: Chest pain EXAM DATE/TIME: 11/16/2020 5:16 PM COMPARISON: 10/14/2020 FINDINGS: Lines, Tubes, and Devices: None. Cardiomediastinal Silhouette: Normal heart size. Aortic atherosclerotic calcification. Lungs and Pleura: Diffuse coarse interstitial prominence, similar to prior study and likely chronic. No evidence of focal airspace consolidation or pleural effusion. Bones and Soft Tissues: Degenerative changes of the thoracic spine. Median sternotomy wires and prominent mediastinal surgical clips. Cholecystectomy clips. IMPRESSION: No evidence of acute cardiopulmonary abnormality or significant interval change. Electronically signed by: Tim Beckford DO (11/16/2020 5:29 PM) [id number] DICTATED and SIGNED BY: TIM BECKFORD DO DATE: 11/16/20 [id number] 0 Course & Med Decision Making: Course & Med Decision Making Pertinent Labs and Imaging studies reviewed. (See chart for details) See HPI. Alert and oriented x4. Ambulatory with a slow steady gait. I cannot reproduce chest pain with palpation or with her moving. Patient states that this pain was a sharp shooting type of pain went across her chest and down both of her arms. Speaks in full clear sentences. Skin pink warm and dry. 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 Abdomen soft and nontender. Lungs are clear in upper lobes and diminished in lower lobes. Patient states that she wi ll stay to be admitted and states her understanding that she has had many heart attacks in the past which puts her at higher risk to have another heart attack and possibly . Patient states she understands that she will be admitted. Account Planner that was drawing patient's blood stated that patient would not let her them draw any more blood from her and states that she wants to go home and she is not staying. Patient is wanting to leave AMA. Is again discussed with patient that she could have a heart attack and that this can result in or disability. Patient states her understanding. [] Yang Disclaimer: Yang Disclaimer: This electronic medical record was generated, in whole or in part, using a voice recognition dictation system. Departure Departure Impression: Primary Impression: Left against medical advice Additional Impression: Chest pain Qualified Codes: R07.9 - Chest pain, unspecified Disposition: LEFT AGAINST MEDICAL ADVICE Condition: STABLE Referrals: CONRAD HOLLOWAY MD (PCP) JENNI SOLIS APRN Nov 16, 2020 17:47
--- NOTE | 2020-11-16 19:00 | EKG ---
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
== END 2020-11-16 18:00 | disposition left against medical advice (07) ==
LOC: ER 16:58
DX: R07.89 Other chest pain (principal); F31.9 Bipolar disorder, unspecified; I10 Essential (primary) hypertension; F17.200 Nicotine dependence, unspecified, uncomplicated; I25.2 Old myocardial infarction; I25.10 Atherosclerotic heart disease of native coronary artery without angina pectoris; Z95.1 Presence of aortocoronary bypass graft; Z95.5 Presence of coronary angioplasty implant and graft; Z91.040 Latex allergy status; Z88.4 Allergy status to anesthetic agent; Z88.5 Allergy status to narcotic agent
CPT/HCPCS: 36415; 71045; 85025; 93005; 99285-25

== ENCOUNTER → 2021-01-03 | Outpatient (CLI) | payer MEDICARE ==
[~2021-01-03] MED LIST changes: -DOXY100C2 PO; +DOXY100C3 PO
--- NOTE | 2021-01-04 15:01 | KCIC ---
PQRS Compliance Statement: One or more of the following individualized dose reduction techniques were utilized for this examinat ion: 1. Automated exposure control 2. Adjustment of the mA and/or kV according to patient size 3. Use of iterative reconstruction technique Exam performed: CT chest without contrast HISTORY: Sternal pain or a nodule aortic aneurysm. DATE OF SERVICE: 01/03/2021. COMPARISON: CT angiogram chest, abdomen and pelvis from 04/14/2020. TECHNIQUE: Contiguous helical acquisitions are obtained through the chest without IV contrast. Sagitt al and coronal reformatted images are obtained and reviewed. FINDINGS: Structures at the thoracic inlet including both lobes of the thyroid gland appear normal. Lack of IV contrast limits evaluation of neck and intrathoracic great vessels, however clear is diffuse atheroma tous calcification of the aorta. Ectasia of the ascending aorta which measures 4.5 x 4.0 cm, overall stable. The descending thoracic aorta appear normal. No mediastinal or hilar adenopathy seen. Extensi ve atheromatous coronary calcification is seen. Heart size is normal. Trace pericardial effusion. Interrogation of lungs demonstrates stable 4 mm nodularity anterior left upper lobe and is unchanged since the recent CT chest with document stability since 2019 and is perhaps benign.. No new pulmonary nodules identified. Limited evaluation of the upper abdominal structures redemonstrates an upper abdominal aortic aneurys m which perhaps is slightly increased in size since the prior study and measures up to 6.2 x 5.2 cm ( previously measured 5.9 x 5.5 cm). IMPRESSION: Mild ectasia ascending thoracic aorta with mild interval enlargement of the upper abdominal aortic an eurysm. A CT angiogram of the abdomen and pelvis may be obtained to further evaluate this enlarging a neurysm. Stable 4 mm nodule anterior left upper lobe has remained stable since 2019 and is considered benign. Electronically signed by: Eusebia Knowles MD (01/04/2021 2:59 PM) [id number]
== END ==
LOC: KCIC CT 13:34
PROVIDERS: ATTEND Internal Medicine
DX: I71.4 Abdominal aortic aneurysm, without rupture (principal); I70.0 Atherosclerosis of aorta; R91.1 Solitary pulmonary nodule; R07.89 Other chest pain; F17.210 Nicotine dependence, cigarettes, uncomplicated; R63.4 Abnormal weight loss; Z68.45 Body mass index [BMI] 70 or greater, adult
CPT/HCPCS: 71250

== ENCOUNTER 2021-03-12 01:01 | Emergency (ER) | payer MEDICARE ==
[~2021-03-12] VITALS: Ht 167.6 cm; Wt 50.0 kg
[2021-03-12 01:19] LABS: BASO % 1 % (0-3); EOS % 1 % (0-3); HEMATOCRIT 41.5 % (36.0-47.0); HEMOGLOBIN 14.8 g/dL (12.0-15.5); LYMPH # 1.4 x10^3/uL (1.0-4.8); LYMPH % 18 % (24-48); MEAN CORPUSCULAR HEMOGLOBIN 33 pg (25-35); MEAN CORPUSCULAR HGB CONC 36 g/dL (31-37); MEAN CORPUSCULAR VOLUME 94 fL (79-100); MONO # 0.6 x10^3/uL (0.0-1.1); MONO % 7 % (0-9); NEUT # 5.7 x10^3/uL (1.8-7.7); NEUT % 73 % (31-73); PLATELET COUNT 165 x10^3/uL (140-400); RED BLOOD COUNT 4.43 x10^6/uL (3.50-5.40); RED CELL DISTRIBUTION WIDTH 12.9 % (11.5-14.5); WHITE BLOOD COUNT 7.8 x10^3/uL (4.0-11.0)
[2021-03-12 01:31] LABS: CALCIUM 8.7 mg/dL (8.5-10.1); CREATININE 1.3 mg/dL (0.6-1.0); GFR 40.2; POTASSIUM 3.3 mmol/L (3.5-5.1)
[2021-03-12 01:36] LABS: ALBUMIN 3.8 g/dL (3.4-5.0); ALBUMIN/GLOBULIN RATIO 1.2 (1.0-1.7); TOTAL BILIRUBIN 0.7 mg/dL (0.2-1.0); TOTAL PROTEIN 7.1 g/dL (6.4-8.2)
[2021-03-12 02:09] LABS: AMPHETAMINE/METHAMPHETAMINE NEG (NEG); BARBITURATES NEG (NEG); BENZODIAZEPINES NEG (NEG); CANNABINOIDS NEG (NEG); COCAINE NEG (NEG); METHADONE NEG (NEG); OPIATES POS (NEG); PHENCYCLIDINE NEG (NEG)
[2021-03-12 03:36] LABS: BILIRUBIN,URINE NEGATIVE (NEG); CLARITY,URINE CLEAR; COLOR,URINE YELLOW; NITRITE,URINE NEGATIVE (NEG); PH,URINE 6.5 (<5.0-8.0); PROTEIN,URINE NEGATIVE (NEG-TRACE); UROBILINOGEN,URINE 0.2 mg/dL (0.2 mg/dL)
[2021-03-12 03:50] LABS: BACTERIA,URINE MODERATE /HPF (0-FEW); RBC,URINE RARE /HPF (0-2)
--- NOTE | 2021-03-12 04:26 | RAD ---
EXAM: CHEST 1 VIEW History: Chest pain COMPARISON: 11/16/2020 TECHNIQUE: Single portable radiograph of the chest FINDINGS: The cardiac silhouette is unremarkable. The lungs are clear bilaterally. The costophrenic sulci are clear and well demarcated. IMPRESSION: No radiographic evidence of an acute cardiopulmonary process. Electronically signed by: Gurjit Willingham MD (03/12/2021 4:24 AM) [id number]
--- NOTE | 2021-03-12 04:27 | EKG ---
[facility] [address] [place] [address] Test Date: 2021-03-12 Test Time: 01:04:44 Pat Name: TOÑO ROLLINS Department: Room: Gender: F [place] Cutter: : 1945 Requested By: MELANIE MORALES Order Number: [id number] Reading MD: Billy Mcqueen Measurements Intervals [place] Rate: 60 P: CT: QRS: 3 QRSD: 120 T: 163 QT: 436 QTc: 436 Interpretive Statements SINUS RHYTHM LVH WITH REPOLARIZATION ABNORMALITY ABNORMAL ECG Electronically Signed On 03-13-2021 16:02:52 CDT by Billy Mcqueen
--- NOTE | 2021-03-12 04:27 | EKG ---
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
[2021-03-12] MEDS ORDERED: CEPH500C PO (04:55)
--- NOTE | 2021-03-12 04:56 | PHYS DOC ---
Past Medical History Past Medical History: Anxiety, Bipolar, CAD, Hypertension, [place], Other Additional Past Medical Histor: HERNIATED DISC, ANEURYSM(AAA), thoracic aneurysm, claudication Past Surgical History: Angioplasty, Appendectomy, Cholecystectomy, Coronary Bypass Surgery, Other Additional Past Surgical Histo: CARDIAC STENTS Smoking Status: Current Every Day Smoker Alcohol Use: None Drug Use: None General Adult EDM: Chief Complaint: CHEST PAIN-CARDIAC NATURE HPI: HPI: 75-year-old female past medical history of CAD, hypertension, hyperlipidemia wi th history of infrarenal aneurysm, presents the ED with complaints of sharp, knifelike chest pain stating it woke her up around 10 PM and was also present in her throat, arms and shoulders and describes it as " lightening hitting you." States she took a baby aspirin, 1 nitro and hydrocodone prior to ED arrival. States it feels like her prior episodes of coronary artery disease but reports for the first time she had nausea with it. States pain subsided before ED arrival. Denies any cocaine abuse or sick contacts. No history of Covid and has not been vaccinated for Covid. States she is unable to have a stress test and a cardaic cath because of her history of aneurysms and heart valve problems. Cannot recall her last echocardiogram. Primary care physician was with Dr. Holloway. Patient reports has been here multiple times for the same symptoms, is my name under "it's a different mrn under the name Gavi." Patient states her anxiety has been increased believe this is causing her chest pain. Is requesting anxiety medication and analgesia the emergency department. Review of Systems: Review of Systems: Constitutional: Denies fever or chills. [] Eyes: Denies change in visual acuity. [] HENT: Denies nasal congestion or sore throat. [] Respiratory: Denies cough or shortness of breath. [] Cardiovascular: Denies syncope or edema. [] GI: Denies abdominal pain, vomiting, bloody stools or diarrhea. [] : Denies vaginal bleeding or hematuria Musculoskeletal: Denies back pain or joint pain. [] Integument: Denies rash or diaphoresis Neurologic: Denies headache, focal weakness or sensory changes. [] Endocrine: Denies polyuria or polydipsia. [] Lymphatic: Denies swollen glands. [] Psychiatric: Denies depression or anxiety. [] Heart Score: C/O Chest Pain: No HEART Score for Chest Pain: HEART Score for Chest Pain Response (Comments) Value History Slighlty/Non-Suspicious 0 ECG Nonspecific Repolarizatio 1 Age > 65 2 Risk Factors >3 Risk Factors or Hx CAD 2 Troponin < Normal Limit 0 Total 5 Risk Factors: Risk Factors: DM, Current or recent (<one month) smoker, HTN, HLP, family history of CAD, obesity. Risk Scores: Score 0 - 3: 2.5% MACE over next 6 weeks - Discharge Home Score 4 - 6: 20.3% MACE over next 6 weeks - Admit for Clinical Observation Score 7 - 10: 72.7% MACE over next 6 weeks - Early Invasive Strategies Allergies: Allergies: Allergies Coded Allergies Type Severity Reaction Last Updated Verified Latex, Natural Rubber Allergy Intermediate Itching 07/06/17 Yes fentanyl Adverse Reaction Intermediate 01/18/20 Yes hydromorphone Adverse Reaction Intermediate 03/12/18 Yes morphine Adverse Reaction Intermediate Nausea and Vomiting 03/12/18 Yes Physical Exam: PE: Constitutional: Well developed, well nourished, no acute distress, non-toxic appearance. HENT: Normocephalic, atraumatic, Eyes: EOMI, conjunctiva normal, no discharge. Neck: Normal range of motion, supple, Cardiovascular: S1/2 present, regular rhythm Lungs & Thorax: Speaking in full sentences, bilateral equal chest rise, no tachypnea or increased work of breathing Abdomen: soft, no tenderness, Skin: Warm, dry, no erythema, no rash. [] Extremities: No tenderness, no cyanosis, no lower extremity edema Neurologic: Alert and oriented X 3, normal motor function, normal sensory function, no focal deficits noted, steady Psychologic: Affect normal, judgement normal, mood normal. [] Current Patient Data: Labs: Laboratory Tests Test 03/12/21 01:09 03/12/21 01:50 03/12/21 02:43 03/12/21 04:05 White Blood Count 7.8 x10^3/uL (4.0-11.0) Red Blood Count 4.43 x10^6/uL (3.50-5.40) Hemoglobin 14.8 g/dL (12.0-15.5) Hematocrit 41.5 % (36.0-47.0) Mean Corpuscular Volume 94 fL (79-100) Mean Corpuscular Hemoglobin 33 pg (25-35) Mean Corpuscular Hemoglobin Concent 36 g/dL (31-37) Red Cell Distribution Width 12.9 % (11.5-14.5) Platelet Count 165 x10^3/uL (140-400) Neutrophils (%) (Auto) 73 % (31-73) Lymphocytes (%) (Auto) 18 % (24-48) L Monocytes (%) (Auto) 7 % (0-9) Eosinophils (%) (Auto) 1 % (0-3) Basophils (%) (Auto) 1 % (0-3) Neutrophils # (Auto) 5.7 x10^3/uL (1.8-7.7) Lymphocytes # (Auto) 1.4 x10^3/uL (1.0-4.8) Monocytes # (Auto) 0.6 x10^3/uL (0.0-1.1) Eosinophils # (Auto) 0.0 x10^3/uL (0.0-0.7) Basophils # (Auto) 0.0 x10^3/uL (0.0-0.2) Sodium Level 140 mmol/L (136-145) Potassium Level 3.3 mmol/L (3.5-5.1) L Chloride Level 103 mmol/L (98-107) Carbon Dioxide Level 26 mmol/L (21-32) Anion Gap 11 (6-14) Blood Urea Nitrogen 16 mg/dL (7-20) Creatinine 1.3 mg/dL (0.6-1.0) H Estimated GFR (Cockcroft-Gault) 40.2 BUN/Creatinine Ratio 12 (6-20) Glucose Level 110 mg/dL (70-99) H Calcium Level 8.7 mg/dL (8.5-10.1) Magnesium Level 2.0 mg/dL (1.8-2.4) Total Bilirubin 0.7 mg/dL (0.2-1.0) Aspartate Amino Transferase (AST) 16 U/L (15-37) Alanine Aminotransferase (ALT) 15 U/L (14-59) Alkaline Phosphatase 94 U/L (46-116) Troponin I Quantitative < 0.017 ng/mL (0.000-0.055) < 0.017 ng/mL (0.000-0.055) < 0.017 ng/mL (0.000-0.055) MA-Omw-K-Type Natriuretic Peptide 7189 pg/mL (0-124) H Total Protein 7.1 g/dL (6.4-8.2) Albumin 3.8 g/dL (3.4-5.0) Albumin/Globulin Ratio 1.2 (1.0-1.7) Lipase 55 U/L (73-393) L Urine Collection Type Void Urine Color Yellow Urine Clarity Clear Urine pH 6.5 (<5.0-8.0) Urine Specific [place] <=1.005 (1.000-1.030) Urine Protein Negative mg/dL (NEG-TRACE) Urine Glucose (UA) Negative mg/dL (NEG) Urine Ketones (Stick) Negative mg/dL (NEG) Urine Blood Trace (NEG) Urine Nitrite Negative (NEG) Urine Bilirubin Negative (NEG) Urine Urobilinogen Dipstick 0.2 mg/dL (0.2 mg/dL) Urine Leukocyte Esterase Trace (NEG) Urine RBC Rare /HPF (0-2) Urine WBC 1-4 /HPF (0-4) Urine Squamous Epithelial Cells Few /LPF Urine Bacteria Moderate /HPF (0-FEW) Urine Opiates Screen Pos (NEG) Urine Methadone Screen Neg (NEG) Urine Barbiturates Neg (NEG) Urine Phencyclidine Screen Neg (NEG) Urine Amphetamine/Methamphetamine Neg (NEG) Urine Benzodiazepines Screen Neg (NEG) Urine Cocaine Screen Neg (NEG) Urine Cannabinoids Screen Neg (NEG) Urine Ethyl Alcohol Neg (NEG) Laboratory Tests 03/12/21 01:09 Laboratory Tests 03/12/21 01:09 Vital Signs: Vital Signs Date Time Temp Pulse Resp B/P (MAP) Pulse Ox O2 Delivery O2 Flow Rate FiO2 03/12/21 01:23 98.4 66 16 146/74 (98) 97 98.4 EKG: EKConcern for regular ventricular rhythm, suspect sinus versus atrial flutter versus PACs at 60 bpm, normal intervals, no obvious ST elevations or ST depressions, no active chest pain 0148 sinus rhythm 60 bpm, no axis deviation, QTC 466, no ST elevation or ST depression, no active chest pain 0447 sinus rhythm at 57 bpm, no axis deviation, QRS 120, no ST elevation or ST depression, no active chest pain Radiology/Procedures: Radiology/Procedures: IMAGING REPORT Signed PATIENT: TOÑO ROLLINS SACCOUNT: [id number] : 1945 LOCATION: ER AGE: 75 SEX: F EXAM STATUS: PRE ER ORD. PHYSICIAN: MELANIE MORALES DO REASON: cp 23 PROCEDURE: PORTABLE CHEST 1V EXAM: CHEST 1 VIEW History: Chest pain COMPARISON: 11/16/2020 TECHNIQUE: Single portable radiograph of the chest FINDINGS: The cardiac silhouette is unremarkable. The lungs are clear bilaterally. The costophrenic sulci are clear and well demarcated. IMPRESSION: No radiographic evidence of an acute cardiopulmonary process. Electronically signed by: Gurjit Willingham MD (03/12/2021 4:24 AM) [id number] DICTATED and SIGNED BY: GURJIT WILLINGHAM MD DATE: 03/12/21 [id number] 0 Course & Med Decision Making: Course & Med Decision Making Pertinent Labs and Imaging studies reviewed. (See chart for details) Concern for atypical chest pain in the setting of mild anxiety-treated in ed. Pt has been sleeping comfortablyand states pain has been gone throughout entire ED stay. Repeatedly asks for anxiety and pain medication. 3 ekgs and troponins are unremarkable. Pt in no stress and is very well-appearing. HD stable with no uncontrolled hypertension. There are EKGs with no signs of ST elevations or depressions. Heart score will always be in the moderate range given patient's asymptomatic and well-appearing presentation, low suspicion for life threatening cause of the chest pain. Analysis concerning for tract infection. Will treat with Keflex. Will discharge home with strict ED return precautions were given for syncope, neurologic deficits, fever, flulike symptoms, dehydration, chest pressure or shortness of breath. Encouraged urgent outpatient follow-up with PMD and cardiology. Life-threatening processes were considered but are low suspicion at this time, given history, physical exam and ED workup. Pt was educated on all prescription medications and adverse effects. All patient's questions were answered and pt was stable at time of discharge. Life/limb-threatening differential includes but is not limited to, acute myocardial infarction, aortic dissection, congestive heart failure, esophageal injury including rupture, surgical abdomen, arrhythmia, cardiomyopathy, myocarditis, pericarditis, peptic ulcer disease, pneumomediastinum, pneumonia, pneumothorax, pulmonary embolus, unstable angina, rib fracture, contusion, pericardial tamponade or effusion, traumatic injury including mediastinal hemorrhage or hematoma, or pulmonary contusion. I have spoken with the patient and/or caregivers. I explained the patient's condition, diagnoses and treatment plan based on the information available to me at this time. I have answered the patient and/or caregiver's questions and addressed any concerns. The patient and/or caregivers have a good understanding of patient's diagnosis, condition and treatment plan as can be expected at this point. Vital signs have been stable. Patient's condition is stable and appropriate for discharge from the emergency department. Patient will pursue further outpatient evaluation with primary care physician or other designated or consulting physician as outlined in the discharge instructions. The patient and/or caregivers are agreeable to this plan of care and follow-up instructions have been explained in detail. The patient and/or caregivers have received these instructions in written form and have expressed an understanding of the discharge instructions. The patient and/or caregivers are aware that any significant change of condition or worsening of symptoms should prompt immediate return to this or the closest emergency department or call to [email or web address]. Yang Disclaimer: TOMODO Disclaimer: This electronic medical record was generated, in whole or in part, using a voice recognition dictation system. Departure Departure Impression: Primary Impression: Atypical chest pain Additional Impressions: Anxiety UTI (urinary tract infection) Disposition: 01 HOME / SELF CARE / HOMELESS Condition: STABLE Referrals: CONRAD HOLLOWAY MD (PCP) Follow-up with your primary care physician in 24 to 48 hours OR FOLLOW UP WITH FAMILY MEDICINE: [address] [facility], [facility] [address] [place] [address] Patient Instructions: Anxiety and Panic Attacks, Chest Pain (Nonspecific), Urinary Tract Infection Additional Instructions: FOLLOW UP WITH CARDIOLOGY: FOR DEFINITIVE MANAGEMENT of chest pain within 1 week [facility] [address] [facility] [address] [place] [address] EMERGENCY DEPARTMENT GENERAL DISCHARGE INSTRUCTIONS Thank you for coming to [facility] Emergency Department (ED) today and trusting us with you care. We trust that you had a positive experience in our Emergency Department. If you wish to speak to the department management, you may call the Director at [phone]. YOUR FOLLOW UP INSTRUCTIONS ARE FOLLOWS: 1. Do you have a private Doctor? If you do not have a private doctor, please ask for a resource list of physicians or clinics that may be able to assist you with follow up care. 2. The Emergency Physicain has interpreted your x-rays. The X-Ray specialist will also review them. If there is a change in the findings, you will be notified in 48 hours when at all possible. 3. A lab test or culture has been done, your results will be reviewed and you will be notified if you need a change in treatment. ADDITIONAL INSTRUCTIONS AND INFORMATION: 1. Your care today has been supervised by a physician who is specially trained in emergency care. Many problems require more than one evaluation for a complete diagnosis and treatment. We recommend that you schedule your follow up appointment as recommended to ensure complete treatment of you illness or injury. If you are unable to obtain follow up care and continue to have a problem, or if your condition worsens, we recommend that you return to the ED. 2. We are not able to safely determine your condition over the phone nor are we able to give sound medical advice over the phone. For these safety reasons, if you call for medical advice we will ask you to come to the ED for further evaluation. 3. If you have any questions regarding these discharge instructions please call the ED at [phone]. SAFETY INFORMATION: In the interest of safety, wellness, and injury prevention; we encourage you to wear your sealbelt, if you smoke; quite smoking, and we encourage family to use a protective helmet for bicycling and other sporting events that present an increased risk for head injury. IF YOUR SYMPTOMS WORSEN OR NEW SYMPTOMS DEVELOP, OR YOU HAVE CONCERNS ABOUT YOUR CONDITION; OR IF YOUR CONDITION WORSENS WHILE YOU ARE WAITING FOR YOUR FOLLOW UP APPOINTMENT; EITHER CONTACT YOUR PRIMARY CARE DOCTOR, THE PHYSICIAN WHOSE NAME AND NUMBER YOU WERE GIVEN, OR RETURN TO THE ED IMMEDIATELY. Scripts Cephalexin (KEFLEX) 500 Mg Capsule 1 CAP PO BID for 100 Days, #200 CAP Prov: MELANIE MORALES DO 03/12/21 MELANIE MORALES DO Mar 12, 2021 04:56
[2021-03-12 05:07] VITALS: BP 157/76
== END 2021-03-12 05:30 | disposition home or self-care (01) ==
LOC: ER 01:01
DX: R07.89 Other chest pain (principal); N39.0 Urinary tract infection, site not specified; F41.9 Anxiety disorder, unspecified; F31.9 Bipolar disorder, unspecified; I25.10 Atherosclerotic heart disease of native coronary artery without angina pectoris; I10 Essential (primary) hypertension; I25.2 Old myocardial infarction; F17.200 Nicotine dependence, unspecified, uncomplicated; Z90.49 Acquired absence of other specified parts of digestive tract; Z90.89 Acquired absence of other organs; Z95.5 Presence of coronary angioplasty implant and graft; Z95.1 Presence of aortocoronary bypass graft; Z91.040 Latex allergy status; Z88.4 Allergy status to anesthetic agent; Z88.5 Allergy status to narcotic agent
CPT/HCPCS: 36415; 71045; 80053; 80307; 81001; 83690; 83735; 83880; 84484; 85025; 87077; 87086; 87186; 93005; 99285-25

== ENCOUNTER 2021-07-27 15:33 | Emergency (ER) | payer MEDICARE ==
[~2021-07-27] VITALS: Ht 167.6 cm; Wt 50.4 kg
[2021-07-27 15:33] VITALS: BP 144/63
[~2021-07-27 15:33] MED LIST changes: +CEPH500C PO
--- NOTE | 2021-07-27 15:38 | PHYS DOC ---
Past Medical History Past Medical History: Anxiety, Bipolar, CAD, Hypertension, [place], Other Additional Past Medical Histor: HERNIATED DISC, ANEURYSM(AAA), thoracic aneurysm, claudication Past Surgical History: Angioplasty, Appendectomy, Cholecystectomy, Coronary Bypass Surgery, Other Additional Past Surgical Histo: CARDIAC STENTS Smoking Status: Current Every Day Smoker Alcohol Use: None Drug Use: None General Adult HPI: HPI: Patient is a 75 year old female who arrives via EMS, from home, who presents with dry, red skin of her feet. Symptoms have been present for over 3-1/2 weeks. She denies any trauma or injury. She denies any pain. The dry skin is somewhat itchy. She reports that she thought she might of seen a red streak up her leg earlier today, this is now gone, this worried her. She denies chest pain, dyspnea, dizziness, numbness or tingling. She denies any lower extremity swelling. She denies abdominal pain, nausea or vomiting. She reports that she has chronically dry skin, she has tried to use various lotions, she has not used any lotion on her feet today. Review of Systems: Review of Systems: Constitutional: Denies fever or chills. [] HENT: Denies nasal congestion or sore throat. [] Respiratory: Denies cough or shortness of breath. [] Cardiovascular: Denies chest pain or edema. [] GI: Denies abdominal pain, nausea, vomiting Musculoskeletal: Denies back pain or joint pain. [] Integument: Dry skin Psychiatric: Denies depression or anxiety. [] Heart Score: C/O Chest Pain: No Risk Factors: Risk Factors: DM, Current or recent (<one month) smoker, HTN, HLP, family history of CAD, obesity. Risk Scores: Score 0 - 3: 2.5% MACE over next 6 weeks - Discharge Home Score 4 - 6: 20.3% MACE over next 6 weeks - Admit for Clinical Observation Score 7 - 10: 72.7% MACE over next 6 weeks - Early Invasive Strategies Allergies: Allergies: Allergies Coded Allergies Type Severity Reaction Last Updated Verified Latex, Natural Rubber Allergy Intermediate Itching 07/06/17 Yes fentanyl Adverse Reaction Intermediate 01/18/20 Yes hydromorphone Adverse Reaction Intermediate 03/12/18 Yes morphine Adverse Reaction Intermediate Nausea and Vomiting 03/12/18 Yes Physical Exam: PE: Constitutional: Well developed, well nourished, no acute distress, non-toxic appearance. [] HENT: Normocephalic, atraumatic Eyes: Sclera are anicteric Neck: Normal range of motion, no tenderness, supple, no stridor. Trachea midline, no JVD Cardiovascular:Heart rate regular rhythm, +2 radial and +2 dorsalis pedis pulses bilaterally. Lungs & Thorax: Bilateral breath sounds clear to auscultation [] Abdomen: Abdomen is soft, nondistended, nontender to palpation. Skin: There is dry, flaky skin on the dorsum and plantar surface of both feet. There is very minimal light pink erythema of the distal, dorsal feet and plantar surface of the feet. There is no induration, no soft tissue swelling, no tenderness, no warmth. There is no evidence of linear or ascending erythema or lymphangitis. No open wounds. No bleeding. No crepitus or subcutaneous e mphysema. Findings are consistent with atopic dermatitis and dry skin. Back: Full range of motion Extremities: No tenderness, no cyanosis, no clubbing, ROM intact, no edema. No calf tenderness. Neurologic: Alert and oriented X 3, normal motor function, normal sensory function, no focal deficits noted. [] Psychologic: Affect normal, judgement normal, mood normal. [] EKG: EKG: [] Radiology/Procedures: Radiology/Procedures: [] Course & Med Decision Making: Course & Med Decision Making The patient is well-appearing. Her vital signs are stable. She has no other physical complaints. She denies any pain. There is no clinical evidence of cellulitis or infectious process. Skin findings are most consistent with atopic dermatitis or just dry skin. I discussed home care instructions. There is no current indication for further invasive exams, labs or imaging at this time. Return precautions are given. She is comfortable with the plan of care. She should contact her PCP for follow-up, she verbalizes understanding. Yang Disclaimer: Yang Disclaimer: This electronic medical record was generated, in whole or in part, using a voice recognition dictation system. Departure Departure Impression: Primary Impression: Dry skin Disposition: HOME / SELF CARE / HOMELESS Condition: STABLE Referrals: CONRAD HOLLOWAY MD (PCP) Patient Instructions: Eczema Additional Instructions: Please use plenty of lotion to moisturize your skin on your feet. You should apply a layer of Vaseline over your lotion, and I recommend obtaining aloe infused, thick socks to wear at night to help moisturize your skin. There is no current evidence of infection or cellulitis or bacterial infection at this time. Return to the ER for severe pain, temperature 100.4 or higher, severe swelling of the skin or extremities, chest pain, shortness of breath, vomiting or any other concerns. Follow-up with your primary care physician. LETA URBANO DO Jul 27, 2021 15:38
== END 2021-07-27 16:06 | disposition home or self-care (01) ==
LOC: ER 15:33
DX: L85.3 Xerosis cutis (principal); F31.9 Bipolar disorder, unspecified; I10 Essential (primary) hypertension; I25.10 Atherosclerotic heart disease of native coronary artery without angina pectoris; I25.2 Old myocardial infarction; F17.200 Nicotine dependence, unspecified, uncomplicated; Z95.5 Presence of coronary angioplasty implant and graft; Z88.4 Allergy status to anesthetic agent; Z88.5 Allergy status to narcotic agent; Z91.040 Latex allergy status
CPT/HCPCS: 99283